=== PATIENT | female | born 1940 | race Caucasian/White ===

== ENCOUNTER 2021-03-28 18:47 | Inpatient (IN) | payer MEDICARE, SELFPAY ==
[2021-03-28] VITALS (13 sets, daily range): BP systolic 133–165; BP diastolic 69–85; PULSE 71–96; RESP 12–18; TEMP 36.1–36.6; O2SAT 96–99; BMI 26.5
--- NOTE | 2021-03-28 18:59 | XRR_ITS ---
PROCEDURE INFORMATION: Exam: XR Chest Exam date and time: 03/28/2021 6:59 PM Age: 80 years old Clinical indication: Sternal or substernal pain; Additional info: Cp TECHNIQUE: Imaging protocol: XR of the chest. Views: 1 view. COMPARISON: No relevant prior studies available. FINDINGS: Lungs: Ground-glass and interstitial opacities in the lung bases. Pleural spaces: Small pleural effusions. No pneumothorax. Heart/Mediastinum: Mild cardiomegaly. Bones/joints: Unremarkable. XR/XR chest 1V portable [id number] IMPRESSION: 1. Findings consistent with mild congestive heart failure. Pneumonia or aspiration in the lung bases is not excluded.
--- NOTE | 2021-03-28 18:59 | ECG_ITS ---
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
--- NOTE | 2021-03-28 19:18 | ED_ITS ---
HPI - Chest Pain General: Chief Complaint: Chest Pain Stated Complaint: CHEST PAIN Time Seen by Provider: 03/28/21 19:16 History of Present Illness: HPI narrative: This patient is a 89-year-old female who presents to the emergency department complaint of chest pain. Patient states she has had chest pain for about 3 weeks. Patient states she has not followed up with primary care physician or in the hospital for evaluation. We will do medical evaluation treat as needed MD complaint: chest pain Quality: aching Relieving factors: nothing Exacerbating factors: nothing Associated symptoms: Deny abdominal pain, dyspnea, fever(s), nausea, palpitations or vomiting Review of Systems General: Reports: 10 or more systems reviewed and unremarkable except in HPI and below Const: Denies: fever(s), chills, body aches or fatigue Eyes: Denies: change in vision or blurry vision ENMT: Denies: throat pain, hoarseness or mouth pain Card: Reports: chest pain; Denies: palpitations, irregular heart rhythm, edema, swelling of feet/ankles or lightheadedness Resp: Denies: dyspnea, productive cough, non-productive cough, wheezing or pain on inspiration GI: Denies: abdominal pain, nausea or vomiting : Denies: flank pain, difficulty voiding, dysuria, urinary frequency, urinary urgency or urinary hesitancy Musc: Denies: neck pain, back pain, extremity pain, extremity swelling, joint pain, joint swelling, joint redness, joint warmth or limited range of motion Skin/Breast: Denies: rash, pruritus, erythema or skin tenderness Neuro: Denies: headache(s), numbness in extremities or weakness in extremities Psych: Denies: anxiety or depression Physical Exam Const: COMMON NORMALS: no acute distress, average body habitus, patient oriented x3, no limitations, healthy appearing, alert and well nourished HENMT: COMMON NORMALS: normocephalic, atraumatic, hearing grossly normal bilaterally, external ears normal, EAC's normal, TM's normal bilaterally, Normal external nose present, Normal nasal mucous membranes and turbinates present, moist oral mucous membranes, oropharynx normal, dentition normal and gingiva normal HEAD & SCALP: normocephalic and atraumatic NOSE: Normal external nose present and Normal nasal mucous membranes and turbinates present EXTERNAL EAR: Yes external ears normal EXTERNAL AUDITORY CANAL: EAC's normal TYMPANIC MEMBRANE: TM's normal bilaterally Neck/C-Spine: COMMON NORMALS: full ROM, no lymphadenopathy, supple, no meningeal signs, no JVD, Thyroid normal and No carotid bruits THYROID: Thyroid normal Chest: COMMONS NORMALS: normal inspection of the chest, normal palpation of entire chest wall, normal inspection of the breasts and normal palpation of the breasts Breast/axilla inspection: Yes normal inspection of the breasts BREAST/AXILLA PALPATION: Yes normal palpation of the breasts Resp: COMMON NORMALS: normal respiratory effort, No retractions, No use of accessory muscles, clear to auscultation bilaterally and percussion normal AUSCULTATION: clear to auscultation bilaterally PERCUSSION: percussion normal Cardio: COMMON NORMALS: no JVD, regular rate, regular rhythm, S1 normal heart sound present, S2 normal heart sound present, No gallops present (Cardio), No clicks present (Cardio), No murmurs present (Cardio), No rub (Cardio) and Peripheral pulses 2+ throughout RATE: regular rate RHYTHM: regular rhythm HEART SOUNDS: S1 normal heart sound present and S2 normal heart sound present PERIPHERAL PULSES: Peripheral pulses 2+ throughout GI: COMMON NORMALS: Normal to inspection, nondistended, normoactive bowel sounds present, Soft to palpation, non-tender, No hepatosplenomegaly present, no masses and no bruits PALPATION: Yes Soft to palpation and Yes No hepatosplenomegaly present Back/Pelvis: COMMON NORMALS: thoracic and lumbar spine normal to inspection, no thoracic nor lumbar tenderness, thoraco-lumbar ROM normal and straight leg raise negative bilaterally Extremity: COMMON NORMALS: normal to inspection, full ROM, capillary refill normal, no joint enlargement, no clubbing, cyanosis or edema, no calf tenderness and no pedal edema Neuro: COMMON NORMALS: patient oriented x3 SENSORIUM/ORIENTATION: Yes alert MENINGEAL SIGNS: Yes no meningeal signs Course Reevaluation(s): Reevaluation #1: I did discuss at length with patient and family about findings and concerns of acute congestive heart failure they are agreed to be admitted to the hospital for further evaluation and diuresing. Time: 20:49 Consultations: Consultation #1: I did discuss at length with cardiology Dr. Pascual. He reviewed EKG. States unremarkable. No signs of acute myocardial infarction Time: 19:41 Consultation #2: I did discuss at length with Dr. Salinas. She is agreeable to admit the hospital for further evaluation diuresing. She will see patient write additional orders Time: 20:49 Vital Signs: Vital signs: Vital Signs Temperature 97.9 F 03/28/21 20:26 Pulse Rate 81 03/28/21 20:26 Respiratory Rate 18 03/28/21 20:26 Blood Pressure 153/82 03/28/21 20:26 Pulse Oximetry 98 03/28/21 20:26 MDM - Chest Pain MDM Narrative: Medical decision making narrative: I did discuss at length with patient and family about findings and concerns of acute congestive heart failure they are agreed to be admitted to the hospital for further evaluation and diuresing. I did discuss at length with cardiology Dr. Pascual. He reviewed EKG. States unremarkable. No signs of acute myocardial infarction I did discuss at length with Dr. Salinas. She is agreeable to admit the hospital for further evaluation diuresing. She will see patient write additional orders Lab Data: Labs: Lab Results 03/28/21 03/28/21 03/28/21 19:34 19:36 19:36 WBC Cancelled Corrected WBC Cancelled RBC Cancelled Hgb Cancelled Hct Cancelled MCV Cancelled MCH Cancelled MCHC Cancelled RDW Cancelled Plt Count Cancelled MPV Cancelled Gran % Cancelled Neut % (Auto) Cancelled Lymph % (Auto) Cancelled [place] % (Auto) Cancelled Eos % (Auto) Cancelled Baso % (Auto) Cancelled Neut # (Auto) Cancelled Lymph # (Auto) Cancelled [place] # (Auto) Cancelled Eos # (Auto) Cancelled Baso # (Auto) Cancelled Absolute Gran (aut o) Cancelled Nucleated RBC % (a uto) Cancelled Nucleated RBCs # Cancelled Sodium 136 mmol/L mmol/L (136-145) Potassium 3.7 mmol/L mmol/L (3.5-5.1) Chloride 97 mmol/L L mmol/ L (98-107) Carbon Dioxide 29 mmol/L mmol/L (22-29) Anion Gap 13.7 (5-19) BUN 14 mg/dL mg/dL (8-23) Creatinine 0.6 mg/dL mg/dL (0.5-0.9) GFR Calculation Not Reportable Glucose 92 mg/dL mg/dL (65-115) Calculated Osmolal ity 282 mOsm/kg L mOs m/kg (285-295) Calcium 8.8 mg/dL mg/dL (8.5-10.5) Total Bilirubin 0.2 mg/dL mg/dL (0.15-1.2) AST 17 U/L U/L (0-32) ALT < 5 U/L U/L (0-33) Alkaline Phosphata se 59 IU/L IU/L (35-105) Troponin T Baselin e NT-Pro-B Natriuret Pep 55082 pg/mL H pg/ mL (0-450) Total Protein 5.7 g/dL L g/dL (6.6-8.7) Albumin 3.5 g/dL g/dL (3.5-5.2) Globulin 2.2 g/dL g/dL (1.3-4.6) 03/28/21 03/28/21 19:36 20:04 WBC 4.1 10^3/uL 10^3/ uL (4.0-10.0) Corrected WBC RBC 3.89 10^6/uL L 10 ^6/uL (4.1-5.3) Hgb 12.5 g/dL g/dL (11.5-15.3) Hct 37.3 % % (37.0-47.0) MCV 95.9 fl fl (81-99) MCH 32.1 pg pg (28.0-34.0) MCHC 33.5 g/dL g/dL (30.0-36.0) RDW 13.7 % % (12.1-15.1) Plt Count 192 10^3/cmm 10^3 /cmm (130-400) MPV 10.3 fL fL (7.4-10.4) Gran % Neut % (Auto) 75.2 % % Lymph % (Auto) 18.8 % % [place] % (Auto) 4.6 % % Eos % (Auto) 1.0 % % Baso % (Auto) 0.2 % % Neut # (Auto) 3.11 10^3/uL 10^3 /uL (1.8-7.7) Lymph # (Auto) 0.8 10^3/uL 10^3/ uL (0.8-4.8) [place] # (Auto) 0.2 10^3/uL 10^3/ uL (0.2-0.9) Eos # (Auto) 0.0 10^3/uL 10^3/ uL (0.0-0.8) Baso # (Auto) 0.0 10^3/uL 10^3/ uL (0.0-0.1) Absolute Gran (aut o) Nucleated RBC % (a uto) 0 % % Nucleated RBCs # 0.0 /100WBC /100W BC Sodium Potassium Chloride Carbon Dioxide Anion Gap BUN Creatinine GFR Calculation Glucose Calculated Osmolal ity Calcium Total Bilirubin AST ALT Alkaline Phosphata se Troponin T Baselin e 69 ng/L H ng/L (0-10) NT-Pro-B Natriuret Pep Total Protein Albumin Globulin Imaging Data^: CXR: Attestation: I personally reviewed and interpreted this imaging study as follows: Radiologist's impression: MPRESSION: 1. Findings consistent with mild congestive heart failure. Pneumonia or aspiration in the lung bases is not excluded. CT Chest: Attestation: I personally reviewed and interpreted this imaging study as follows: Radiologist's impression: FINDINGS: Lungs: Smooth interlobular septal thickening in the lung apices and lingula, consistent with pulmonary edema. Mild ground-glass opacities in the central lungs. Consolidation in the posterior lower lobes is most likely passive atelectasis. 4 mm left lower lobe nodule, image 32. Calcified granuloma in the right lower lobe. Pleural spaces: Moderate right and small left pleural effusions. Heart: Cardiomegaly. Aorta: Arterial calcifications. Mild aneurysmal dilatation of the ascending thoracic aorta measuring 4.0 cm. Lymph nodes: Prominent mediastinal and hilar lymph nodes are most likely reactive. Spleen: Fluid density cyst in the spleen, Hounsfield units less than 20. No follow-up imaging is recommended. Bones/joints: Unremarkable. No acute fracture. Soft tissues: Diffuse body wall edema. CT/CT chest wo con [id number] IMPRESSION: 1. Congestive heart failure pattern with cardiomegaly and mild pulmonary edema. 2. Bilateral pleural effusions with passive atelectasis. 3. 4 mm left pulmonary nodule. For patients at low risk (minimal or absent history of smoking and of other known risk factors), no routine follow-up is indicated. For patients at high risk (history of smoking or of other known risk factors), consider optional CT Chest at 12 months. (Reference: Pollo) EKG Data^: EKG 1: Attestation: I personally reviewed and interpreted this EKG as follows: EKG interpretation date: 03/28/21 EKG interpretation time: 19:25 Prior EKG tracings: not available for review Interpretation: Sinus rhythm with left atrial enlargement. Left axis deviation. Nonspecific EKG changes anterior leads.HR 83 Discharge Plan Discharge Patient Disposition: Admitted As Inpatient Clinical Impression: Acute CHF (congestive heart failure), Chest pain Condition: Stable Coding Level of Care Code ED Tower Observer for Chg Fwd Exam Comprehensive
[2021-03-28 20:01] LABS: Alanine Aminotransferase < 5 U/L (0-33); Albumin Level 3.5 g/dL (3.5-5.2); Alkaline Phosphatase 59 IU/L (35-105); Anion Gap 13.7 (5-19); Aspartate Amino Transferase 17 U/L (0-32); Blood Urea Nitrogen 14 mg/dL (8-23); Calcium 8.8 mg/dL (8.5-10.5); Carbon Dioxide 29 mmol/L (22-29); Chloride 97 mmol/L (98-107); Globulin 2.2 g/dL (1.3-4.6); Glucose 92 mg/dL (65-115); Osmolality Calculated 282 mOsm/kg (285-295); Potassium 3.7 mmol/L (3.5-5.1); Sodium 136 mmol/L (136-145); Total Bilirubin 0.2 mg/dL (0.15-1.2); Total Protein 5.7 g/dL (6.6-8.7)
[2021-03-28 20:02] LABS: Troponin(5th) Baseline 69 ng/L (0-10)
--- NOTE | 2021-03-28 20:07 | CTR_ITS ---
PROCEDURE INFORMATION: Exam: CT Chest Without Contrast; Diagnostic Exam date and time: 03/28/2021 8:07 PM Age: 80 years old Clinical indication: Shortness of breath and other: Weakness; Additional info: Pleural effsusion TECHNIQUE: Imaging protocol: Diagnostic computed tomography of the chest without contrast. Radiation optimization: All CT scans at this facility use at least one of these dose optimization techniques: automated exposure control; mA and/or kV adjustment per patient size (includes targeted exams where dose is matched to clinical indication); or iterative reconstruction. COMPARISON: CR (CHEST, ) 03/28/2021 7:35 PM RADIATION DOSE METRICS: Total DLP (mGy-cm): 476.79 FINDINGS: Lungs: Smooth interlobular septal thickening in the lung apices and lingula, consistent with pulmonary edema. Mild ground-glass opacities in the central lungs. Consolidation in the posterior lower lobes is most likely passive atelectasis. 4 mm left lower lobe nodule, image 32. Calcified granuloma in the right lower lobe. Pleural spaces: Moderate right and small left pleural effusions. Heart: Cardiomegaly. Aorta: Arterial calcifications. Mild aneurysmal dilatation of the ascending thoracic aorta measuring 4.0 cm. Lymph nodes: Prominent mediastinal and hilar lymph nodes are most likely reactive. Spleen: Fluid density cyst in the spleen, Hounsfield units less than 20. No follow-up imaging is recommended. Bones/joints: Unremarkable. No acute fracture. Soft tissues: Diffuse body wall edema. CT/CT chest wo con [id number] IMPRESSION: 1. Congestive heart failure pattern with cardiomegaly and mild pulmonary edema. 2. Bilateral pleural effusions with passive atelectasis. 3. 4 mm left pulmonary nodule. For patients at low risk (minimal or absent history of smoking and of other known risk factors), no routine follow-up is indicated. For patients at high risk (history of smoking or of other known risk factors), consider optional CT Chest at 12 months. (Reference: Pollo) References: Pollo Hargrove et al. Guidelines for Management of Incidental Pulmonary Nodules Detected on CT Images: From the Fleischner Society 2017. Radiology. 2017;284(1):228-243. Radiation Dose CTDIVOL = (mGy): DLP = 476.79 (mGy-cm)
[2021-03-28 20:08] LABS: Basophils % 0.2 %; Hematocrit 37.3 % (37.0-47.0); Hemoglobin 12.5 g/dL (11.5-15.3); Lymphocytes # 0.8 10^3/uL (0.8-4.8); Lymphocytes % 18.8 %; Mean Corpuscular HGB Conc 33.5 g/dL (30.0-36.0); Mean Corpuscular Hemoglobin 32.1 pg (28.0-34.0); Mean Corpuscular Volume 95.9 fl (81-99); Mean Platelet Volume 10.3 fL (7.4-10.4); Monocytes # 0.2 10^3/uL (0.2-0.9); Monocytes % 4.6 %; Neutrophils # 3.11 10^3/uL (1.8-7.7); Neutrophils % 75.2 %; Nucleated Red Blood Cells % 0 %; Platelet Count 192 10^3/cmm (130-400); Red Blood Count 3.89 10^6/uL (4.1-5.3); Red Cell Distribution Width 13.7 % (12.1-15.1); White Blood Count 4.1 10^3/uL (4.0-10.0)
[2021-03-28 20:41] LABS: NT Pro B Type Natriuretic Pept 15189 pg/mL (0-450)
--- NOTE | 2021-03-28 20:59 | ECG_ITS ---
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 Measurements Intervals [place] Rate: 82 P: 69 MN: 149 QRS: -27 QRSD: 98 T: 167 QT: 429 QTc: 503 Interpretive Statements SINUS RHYTHM ANTEROSEPTAL MYOCARDIAL INFARCTION , PROBABLY RECENT [40+ ms Q WAVE IN V1-V4] ACUTE MA T wave changes suggestive of lateral wall ischemia Compared to ECG 03/28/2021 19:25:25 Left-axis deviation no longer present Myocardial infarct finding still present Electronically Signed On 03-30-2021 23:40:49 CDT by Berenice Summers M.D. [id number]
[2021-03-28] MEDS: FUROsemide 10 mg/mL SDV 10mL 80 MG IVP (21:18)
--- NOTE | 2021-03-28 21:24 | PM.HP ---
Providers/Chief Complaint Admitting Physician: Holli Salinas MD Primary Care Provider: Deyanira Worthington MD Chief Complaint: CHEST PAIN History of Present Illness Michaela Sauer is a 80 year old female with past medical history of Parkinson's disease, hypertension presenting to the ER today with chief complaints of chest pain over the last 1-1/2 months. Patient states that the chest pain started suddenly 1-1/2 months ago, located in the center of her chest, radiates occasionally into her left shoulder, not associated with exertion, resolved spontaneously. She has not noticed any apparent exacerbating or relieving factors. Denies any past medical history of CAD, CHF. Presented to the ER today due to complaints of additional shortness of breath. She was requiring 2 L/min supplemental O2. EKG noted sinus rhythm, T wave inversion V2 V4 V5, elevated baseline troponin at 69, mild increases at 2 hours and 6 hours at 72 and 78 respectively. Elevated proBNP at 13,000. CT chest without contrast showed cardiomegaly and mild pulmonary edema, bilateral pleural effusions with passive atelectasis and an incidental 4 mm left pulmonary nodule. Per Dr. Merrill's note, EKG changes were discussed with Dr. Fisher from cardiology, appeared less concerning for acute WA. Review of Systems General: Reports: 10 or more systems reviewed and unremarkable except in HPI and below Const: Denies: fever(s), chills or body aches Eyes: Denies: change in vision, blurry vision or photophobia ENMT: Reports: hoarseness; Denies: throat pain, enlarged tonsils, odynophagia or nasal congestion Card: Reports: chest pain; Denies: palpitations, irregular heart rhythm, edema, swelling of feet/ankles, lightheadedness, pre-syncope, dyspnea on exertion or orthopnea Resp: Reports: dyspnea; Denies: productive cough, non-productive cough, wheezing, stridor, pain on inspiration, change in phlegm color, hemoptysis or chest congestion GI: Denies: abdominal pain, nausea, vomiting, hematemesis, coffee ground emesis, dysphagia, heartburn, diarrhea, constipation, GI cramping, change in stool character, hematochezia or melena : Denies: flank pain, difficulty voiding, dysuria, urinary frequency, urinary urgency, urinary hesitancy or hematuria Musc: Denies: neck pain, back pain, extremity pain, joint swelling, joint warmth or deformity Neuro: Denies: headache(s), numbness in extremities, weakness in extremities, sensory changes, difficulty walking, frequent falls, dizziness, vertigo, behavioral changes, Slurred speech present or seizure-like activity Psych: Denies: anxiety, depression, suicidal ideation or homicidal ideation Endo: Denies: polyuria, polydipsia, tired all the time, cold intolerance or hot flashes Beni/Lymph: Denies: easy bruising or easy bleeding Medications/Allergies Home Medications Medication Instructions Recorded Confirmed Last Taken Type alprazolam 0.25 mg PO QID PRN MDD SEE 03/28/21 03/28/21 03/28/21 History PHARMACY COMMENT amlodipine 5 mg PO DAILY 03/28/21 03/28/21 03/28/21 History carbidopa-levodopa 1 tab PO BEDTIME 03/28/21 03/28/21 03/27/21 History carbidopa-levodopa 1.5 tab PO QID@08,10,12,16 03/28/21 03/29/21 03/28/21 History chlorthalidone 25 mg PO DAILY 03/28/21 03/28/21 03/28/21 History cholecalciferol (vitamin D3) 25 mcg PO DAILY 03/28/21 03/28/21 03/28/21 History [Vitamin D3] clonidine 0.2 mg TRANSDERMAL Q24H 03/28/21 03/28/21 03/28/21 History entacapone 200 mg PO QID 03/28/21 03/28/21 03/28/21 History ferrous gluconate 324 mg PO DAILY 03/28/21 03/28/21 03/28/21 History folic acid 1 mg PO DAILY 03/28/21 03/28/21 03/28/21 History methotrexate sodium 17.5 mg PO Q7D 03/28/21 03/28/21 03/25/21 History omeprazole 20 mg PO DAILY 03/28/21 03/28/21 03/28/21 History potassium chloride 10 meq PO BID 03/28/21 03/28/21 03/28/21 History pramipexole 2 mg PO TID 03/28/21 03/28/21 03/28/21 History primidone 300 mg PO BEDTIME 03/28/21 03/28/21 03/27/21 History Allergies Allergy/AdvReac Type Severity Reaction Status Date / Time No Known Allergies Allergy Verified 03/28/21 19:19 PFSH Acute PFSH: Medical History (Updated 03/29/21 @ 06:24 by Holli Salinas MD) Hypertension Parkinsons disease Vitals/I&O/Wt Last Vital Signs Temp 97.9 F 03/28/21 20:26 Pulse 81 03/28/21 20:26 Resp 18 03/28/21 20:26 BP 153/82 03/28/21 20:26 Pulse Ox 98 03/28/21 20:26 Weight last 48 hrs Weight 65.771 kg Physical Exam Narrative: EXAM NARRATIVE: General: No acute distress, AO x3, coarse resting tremors HEENT: PERRLA, pupils bilaterally equal and reactive Chest: Reduced air entry at bilateral lung bases, scattered crypts to auscultation CVS: S1-S2 regular, no murmurs, no tachycardia, no gallops, no rubs Abdomen: Soft, nontender, no organomegaly, bowel sounds present Neuro: No focal deficits, no facial deformity, AO x3, power 5/5 in all limbs Extremities: Mild bilateral lower extremity edema Data : 03/29/21 01:20 03/29/21 01:20 A&P Assessment and plan (1) Acute CHF (congestive heart failure): Status: Acute Qualifiers: Heart failure type: unspecified Qualified Code(s): I50.9 - Heart failure, unspecified (2) Chest pain: Status: Acute Qualifiers: Chest pain type: unspecified Qualified Code(s): R07.9 - Chest pain, unspecified (3) Elevated troponin: Status: Acute Additional A&P Information Patient presenting today with chest pain of 1-1/2 months duration and worsening dyspnea over the same timeframe. Physical exam with mild bilateral LE edema, crackles on auscultation, CT chest with bilateral pleural effusion and signs of pulmonary edema. Differentials include new diagnosis of congestive heart failure, cannot exclude recent WA as a precipitating cause given also chest pain over the same timeframe. He received Lasix 80 mg IV in the ER. Start Lasix 40 mg IV daily, monitor JOSEPH closely, measure daily weight. Closely monitor renal function. Echocardiogram to estimate EF, any regional wall motion abnormalities. D-dimer to screen for possibility of PE, if elevated will likely need CTA chest Full code DVT ppx: lovenox Attestations Medical Necessity Statement*: anticipate >2midnight admission for evaluation and management of new CHF Coding Level of Care Code Acute Uniform Patrol Police Officer for g Fwd Diagnoses Acute CHF (congestive heart failure) I50.9 Heart failure type: unspecified Chest pain R07.9 Chest pain type: unspecified Elevated troponin R77.8
[2021-03-28 21:53] LABS: Troponin 5 2HR 72.08 ng/L (0-10); Troponin 5 2HR Delta 3.08 ABS# (0-10)
[2021-03-28 22:08] LABS: D Dimer 19.58 ug/mIFEU (0-0.59)
--- NOTE | 2021-03-28 22:13 | PC.NURSE ---
Patient up to bedside commode with assist x2 and back to bed without incident.
[2021-03-28 23:11] LABS: Add Urine Microscopic? YES; Bilirubin Urine Neg (Negative); Blood Urine Neg (Negative); Glucose Urine UA Norm (Normal); Ketones Urine Negative (Negative); Leukocyte Esterase Urine 2+ (Negative); Nitrate Urine Positive (Negative); Protein Urine Neg (Negative); Urine Appearance Clear (CLEAR); Urine Color Yellow (Yellow); Urobilinogen Urine Norm (Negative); pH Urine 6.5 (5-7)
[2021-03-28 23:12] LABS: Add Urine Culture? Yes; Bacteria Urine TRACE /hpf; RBC Urine 0-4 /hpf (0-2); Squamous Epithelial Cell Urine 0-4 /hpf (0-5); WBC Urine 40-55 /hpf (0-5)
[2021-03-29] VITALS (93 sets, daily range): BP systolic 123–147; BP diastolic 73–79; PULSE 71–89; RESP 0–83; TEMP 36.6–36.8; O2SAT 91–98; BMI 18.1
--- NOTE | 2021-03-29 00:23 | USCV_ITS ---
Michaela Sauer Age: 80 Gender: F : 1940 Exam Date: 03/29/2021 11:07 Ordering Phys: Holli Salinas MD Technologist: Sylvia Trujillo Exam Location: [facility] – [place] Indication: decompensated CHF BP: 146 / 77 HR: 74 Rhythm: Sinus Technical Quality: Good MEASUREMENTS (Male / Female) Normal Values 2D ECHO LV Diastolic Diameter PLAX 4.8 cm 4.2 - 5.9 / 3.9 - 5.3 cm LV Systolic Diameter PLAX 3.4 cm IVS Diastolic Thickness 1.2 cm 0.6 - 1.0 / 0.6 - 0.9 cm IVS Systolic Thickness 1.2 cm LVPW Diastolic Thickness 1.0 cm 0.6 - 1.0 / 0.6 - 0.9 cm LVPW Systolic Thickness 1.9 cm LVOT Diameter 2.0 cm LV Ejection Fraction 2D Teich 56.3 % LV Ejection Fraction MOD 2C 41.1 % LV Ejection Fraction 2C AL 42.3 % LA Diameter 3.1 cm LA Width 4.3 cm LA Height 5.4 cm RA Width 3.0 cm RA Height 3.6 cm Aorta at Sinotubular Diameter 2.9 cm DOPPLER AV Peak Velocity 165.0 cm/s LVOT Peak Velocity 95.0 cm/s AV Area Cont Eq vti 2.0 cm squared AV Area Cont Eq pk 1.7 cm squared MV Peak Velocity 109.0 cm/s MV Area PHT 4.9 cm squared Mitral E to A Ratio 0.7 MV E' Velocity 34.5 cm/s Mitral E to MV E' Ratio 16.8 Mitral E to LV E' Lateral Ratio 21.1 Mitral E to LV E' Septal Ratio 14.2 TR Peak Velocity 196.0 cm/s TR Peak Gradient 15.4 mmHg Right Atrial Pressure 3.0 mmHg Pulmonary Artery Systolic Pressu 18.4 mmHg PV Peak Velocity 80.0 cm/s RV Acceleration Time 0.1 s RV Ejection Time 0.3 s RV AcT/ET 0.3 FINDINGS Left Ventricle Severe diffuse hypokinesia of the low LV apex. LV ejection fraction around 35 to 40%.mild left ventricular hypertrophy. Right Ventricle Possibly normal RV size and ejection fraction Right Atrium The right atrium is normal in size. Left Atrium Mildly increased left atrial size. Interatrial septum bulging to the right Mitral Valve Thickened mitral valve. Mild mitral annular calcification. Moderate mitral valve regurgitation. Aortic Valve Thickened aortic valve. Mild aortic valve regurgitation. Tricuspid Valve Trace tricuspid valve regurgitation. Pulmonic Valve Structurally normal pulmonic valve without significant stenosis. There is no pulmonic regurgitation. Pericardium At least moderate left-sided pleural effusion.trivial pericardial effusion. Aorta Normal ascending aorta dimension. CONCLUSIONS Severe diffuse hypokinesia of the low LV apex. LV ejection fraction around 35 to 40% (visual). Mild left ventricular hypertrophy. Mildly increased left atrial size. Interatrial septum bulging to the right. Thickened mitral valve. Mild mitral annular calcification. Moderate mitral valve regurgitation. Thickened aortic valve. Mild aortic valve regurgitation. Trace tricuspid valve regurgitation. At least moderate left-sided pleural effusion. Trivial pericardial effusion. There are no intracardiac masses. No previous study is available for comparison. Dr Berenice Summers MD FAC (Electronically Signed) Final Date: 30 March 2021 00:39 S
--- NOTE | 2021-03-29 00:59 | ECG_ITS ---
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 Measurements Intervals [place] Rate: 77 P: 59 MA: 172 QRS: -24 QRSD: 97 T: 173 QT: 415 QTc: 470 Interpretive Statements SINUS RHYTHM ANTEROSEPTAL MYOCARDIAL INFARCTION , PROBABLY RECENT [40+ ms Q WAVE IN V1-V4] ACUTE WY T wave changes suggestive of anterolateral wall ischemia Compared to ECG 03/28/2021 23:43:02 No significant changes Electronically Signed On 03-30-2021 23:41:36 CDT by Berenice Summers M.D. [id number]
[2021-03-29 01:25] LABS: Basophils % 0.5 %; Eosinophils % 0.7 %; Hematocrit 36.9 % (37.0-47.0); Hemoglobin 12.8 g/dL (11.5-15.3); Lymphocytes # 0.7 10^3/uL (0.8-4.8); Lymphocytes % 15.6 %; Mean Corpuscular HGB Conc 34.7 g/dL (30.0-36.0); Mean Corpuscular Hemoglobin 32.2 pg (28.0-34.0); Mean Corpuscular Volume 92.9 fl (81-99); Mean Platelet Volume 9.9 fL (7.4-10.4); Monocytes # 0.3 10^3/uL (0.2-0.9); Monocytes % 6.8 %; Neutrophils # 3.39 10^3/uL (1.8-7.7); Neutrophils % 76.4 %; Nucleated Red Blood Cells % 0 %; Platelet Count 197 10^3/cmm (130-400); Red Blood Count 3.97 10^6/uL (4.1-5.3); Red Cell Distribution Width 13.5 % (12.1-15.1); White Blood Count 4.4 10^3/uL (4.0-10.0)
[2021-03-29 01:45] LABS: Troponin 5 6HR 78.66 ng/L (0-10); Troponin 5 6HR Delta 9.66 ng/L (0-12)
[2021-03-29 01:59] LABS: Alanine Aminotransferase 8 U/L (0-33); Albumin Level 3.3 g/dL (3.5-5.2); Alkaline Phosphatase 56 IU/L (35-105); Anion Gap 9.2 (5-19); Aspartate Amino Transferase 16 U/L (0-32); Blood Urea Nitrogen 14 mg/dL (8-23); Calcium 8.5 mg/dL (8.5-10.5); Carbon Dioxide 32 mmol/L (22-29); Chloride 97 mmol/L (98-107); Glucose 98 mg/dL (65-115); Osmolality Calculated 280 mOsm/kg (285-295); Potassium 3.2 mmol/L (3.5-5.1); Sodium 135 mmol/L (136-145); Thyroid Stimulating Hormone 4.17 uIU/mL (0.27-4.20); Total Bilirubin 0.2 mg/dL (0.15-1.2); Total Protein 5.3 g/dL (6.6-8.7)
--- NOTE | 2021-03-29 06:28 | CT_ITS ---
WS: [id number] CTA OF THE CHEST WITH PULMONARY EMBOLISM PROTOCOL TECHNIQUE: High-resolution contrast enhanced CTA of the chest with coronal and sagittal reformatted i aracelis with pulmonary embolism protocol. MIP images are also reviewed. CLINICAL INFORMATION: evaluate for PE COMPARISON: None. DLP: 494.[address] scans at [facility] use at least one of these dose optimization techniques: automated e xposure control; mA and/or kV adjustment per patient size (includes targeted exams where dose is matc hed to clinical indication); or iterative reconstruction. FINDINGS: Proximal main pulmonary arteries are normal. Normal segmental and subsegmental pulmonary arteries. No evidence of pulmonary embolus. Small bilateral pleural effusions compressive atelectasis in the lung bases unchanged since yesterday. Stable slightly ectatic ascending thoracic aorta. Reactive mediastinal lymph nodes. Interstitial edema has improved compared to yesterday. Cardiomegaly . Aortic calcification. Small esophageal hiatal hernia. Small low-attenuation lesion in the spleen li yonatan cyst or hemangioma is unchanged. Hypertrophic changes thoracic spine. CT/CT angio chest PE protcl [id number] IMPRESSION: 1. No evidence of pulmonary embolus. 2. Cardiomegaly. Improved interstitial edema. 3. Small bilateral pleural effusions with compressive atelectasis in the lung bases is unchanged from yesterday. 4. No other significant changes.
[2021-03-29] MEDS: enoxaparin 60 mg/0.6 mL Syringe SUBCUT (08:04)
[2021-03-29] MEDS: pramipexole 0.25 mg Tablet 2 MG PO ×3 (08:05→21:41)
[2021-03-29] MEDS: FUROsemide 10 mg/mL SDV 4mL 40 MG IVP (08:05)
[2021-03-29] MEDS: carbidopa-levodopa 25-100mg Tablet 1.5 EACH PO ×4 (08:06→17:32)
[2021-03-29] MEDS: amlodipine 5 mg Tablet PO (08:06)
[2021-03-29] MEDS: potassium chloride ER 20 mEq Tablet 40 MEQ PO (08:06)
[2021-03-29] MEDS: pantoprazole DR 40 mg Tablet PO ×2 (08:06→21:42)
[2021-03-29] MEDS: iohexol 350 mg/mL 100 mL Btl IV (08:54)
--- NOTE | 2021-03-29 10:34 | PC.PHAR ---
Med list amended. Spoke with pts daughter, Yakelin- States she is taking Carbidopa-Levodopa 25-100mg 1 tablet QID (Prescribed as 1.5 tablets QID) Daughter states her doctor is aware she is taking less than prescribed. Carbidop-Levo originally entered as 1.5 tablets TID, changed to 1.5 tablets QID - pt is taking 1 tablet QID. Pt is using Clonidine Trans Patch 0.2mg/24hr Q7D (last filled d007/30/20 x 30 days) Daughter states pt has an over abundance of patches and still has plenty to use. Patch originally entered as 0.2mg/24hr Q24H Medication list updated and verified with Yakelin Sanchez - Daughter & [facility] [place]
--- NOTE | 2021-03-29 11:13 | USCV_ITS ---
Michaela Sauer Age: 80 Gender: F : 1940 Exam Date: 03/29/2021 11:31 Ordering Phys: Charlene Russo MD Technologist: Sylvia Trujillo Exam Location: [facility] [place] Indication: high D Dimer, bruise on left toe PROCEDURES: Bilaterally, the common femoral, superficial femoral, profunda femoral, popliteal, posterior tibial, greater saphenous veins, and the peroneal trunk were identified and interrogated in the standard fashion. FINDINGS: No DVT or superficial thrombus seen in right or left leg. The veins were found to be easily compressible with spontaneous blood flow. Non pulsatile flow pattern. CONCLUSIONS No evidence of DVT in the above-mentioned identifiable veins. Dr Berenice Summers MD [facility] (Electronically Signed) Final Date: 30 March 2021 14:43 S
[2021-03-29 12:22] LABS: Uric Acid 4.2 mg/dL (2.4-5.7)
--- NOTE | 2021-03-29 12:33 | XRR_ITS ---
PROCEDURE INFORMATION: Exam: XR Left Foot Exam date and time: 03/29/2021 12:33 PM Age: 80 years old Clinical indication: Pain; Toes; Left; Patient HX: History--bruising to great toe, PT had dementia unable to give history; Additional info: Bruised left great toe TECHNIQUE: Imaging protocol: XR Left foot. Views: 1 or 2 views. COMPARISON: CR Tibia and Fibula LEFT [id number] 08/08/2016 4:44 PM FINDINGS: Bones/joints: The hindfoot-midfoot and midfoot-forefoot articulations are normal. The metatarsals and the phalanges without an acute process. Subtalar joint and the tibiotalar joint appears normal. Moderate degenerative changes at the first metatarsal phalangeal joint. Severe hallux valgus deformity. Hallux valgus angle of approximately 43 degrees. Prior trauma distal aspect 5th metatarsal. Spur formation at the insertion of the Achilles' tendon . Mild degenerative changes talonavicular joint. Soft tissues: Normal. XR/XR foot LT 2V [id number] IMPRESSION: 1. Moderate degenerative changes at the first metatarsal phalangeal joint. Severe hallux valgus deformity. 2. Spur formation at the insertion of the Achilles' tendon .
--- NOTE | 2021-03-29 12:34 | P.PN_ITS ---
Subjective Subjective: Interval history: Patient was seen and examined this morning, CTA without any PE requested x-ray of left foot, noticed bruises around left great toe Patient is not endorsing active chest pain stating she gets chest discomfort which she is describing as ball jumping around her subcostal region whenever she lays flat at nighttime, no aggravating or relieving factors She is not describing her chest pain as reproducible, pressure-like sensation, no nausea or vomiting She does have a lot of care at home does not want to go to any care home, she is bedbound and uses wheelchair for ambulation, bedbound because of bad rheumatoid arthritis arthropathy Vitals/I&O/Wt Last Vital Signs Temp 97.4 F L 03/28/21 22:54 Pulse 79 03/29/21 11:57 Resp 3 L 03/29/21 07:05 BP 147/73 03/29/21 07:05 Pulse Ox 92 03/29/21 11:57 Weight last 48 hrs Weight 49.442 kg Weight 65.771 kg Physical Exam Narrative: EXAM NARRATIVE: Patient was laying supine Able to move all of her extremities No active neurological deficit Appears stated age mild active signs of CHF exacerbation , trace edema of lower extremities noted Bilateral breath sound with mild crackles at the bases Abdomen soft Bruises noted around left great toe Nontender joint Does not look infected no active signs of gout Patient does respond to my questions and answers appropriately As per the nursing staff no sacral ulcers Data : 03/29/21 01:20 03/29/21 01:20 A&P Assessment and plan (1) Hypertension: Status: Acute (2) Parkinsons disease: Status: Acute (3) Acute CHF (congestive heart failure): Status: Acute Qualifiers: Heart failure type: unspecified Qualified Code(s): I50.9 - Heart failure, unspecified (4) Atypical chest pain: Status: Acute (5) NSTEMI (non-ST elevated myocardial infarction): Status: Acute Additional A&P Information New onset CHF Pending echo Clinically mild signs of CHF overload CTA chest rule out PE Shows improvement of primary edema Continue Lasix 40 IV watch for contraction alkalosis with bicarb Awaiting echo High D-dimer, rule out DVT awaiting venous Dopplers NSTEMI: Abnormal troponin most likely secondary to underlying new onset CHF does not have, active chest pain, we will keep her on therapeutic dose of Lovenox with aspirin and statin for now If echo shows wall motion abnormalities will consult cardiology History of Parkinson's continue pramipexole and primidone History of rheumatoid arthritis I would hold methotrexate for now Left great toe bruise without active swelling or cellulitis, check uric acid, requested x-ray Full code Cardiac diet DVT prophylaxis currently on therapeutic regimen Attestations Medical Necessity Statement*: Anticipating discharge tomorrow if she stays clinically stable Time Spent in Patient Care: 16 - 35 minutes Coding Level of Care Code Acute Salvage Machine Operator for Shira Fwd Diagnoses Hypertension I10 Parkinsons disease G20 Acute CHF (congestive heart failure) I50.9 Heart failure type: unspecified Atypical chest pain R07.89 NSTEMI (non-ST elevated myocardial infarction) I21.4
[2021-03-29 15:25] LABS: Coronavirus Test Green County Not Detected
--- NOTE | 2021-03-29 19:34 | PC.NURSE ---
Shift Note Frequent safety and comfort rounds continue. Orders and/or nursing care completed as indicated. Patient monitored for response to intervention and treatment(s). Pt vacillates btwn completely confused..trying to crawl out of bed...to sitting up in bed,conversing appropriatly with staff.impossible to measure i/o accurately,due to pt is incontinent. Will continue to monitor.
[2021-03-29] MEDS: enoxaparin 60 mg/0.6 mL Syringe 50 MG SUBCUT (21:40)
[2021-03-29] MEDS: carbidopa-levodopa ER 50-200mg Tablet 1 EACH PO (21:41)
[2021-03-29] MEDS: primidone 50 mg Tablet 300 MG PO (21:41)
[2021-03-29] MEDS: atorvastatin 40 mg Tablet PO (21:42)
[2021-03-30] VITALS (57 sets, daily range): BP systolic 108–150; BP diastolic 56–85; PULSE 65–778; RESP 8–25; TEMP 36.4–37.6; O2SAT 92–97
--- NOTE | 2021-03-30 02:33 | PC.NURSE ---
Patient sleeping most of night. Fell asleep after evening medications. Frequent checks for incontinence. Will continue to monitor.
[2021-03-30 05:25] LABS: Anion Gap 10.6 (5-19); Blood Urea Nitrogen 16 mg/dL (8-23); Calcium 8.5 mg/dL (8.5-10.5); Carbon Dioxide 33 mmol/L (22-29); Chloride 96 mmol/L (98-107); Glucose 114 mg/dL (65-115); Osmolality Calculated 284 mOsm/kg (285-295); Potassium 3.6 mmol/L (3.5-5.1); Sodium 136 mmol/L (136-145)
[2021-03-30] MEDS: levoFLOXacin 750 mg Tablet PO (05:44)
[2021-03-30] MEDS: aspirin 81 mg EC Tablet PO (10:11)
[2021-03-30] MEDS: pramipexole 0.25 mg Tablet 2 MG PO ×3 (10:11→21:11)
[2021-03-30] MEDS: FUROsemide 10 mg/mL SDV 4mL 40 MG IVP (10:12)
[2021-03-30] MEDS: carbidopa-levodopa 25-100mg Tablet 1.5 EACH PO ×4 (10:12→18:19)
[2021-03-30] MEDS: enoxaparin 60 mg/0.6 mL Syringe 50 MG SUBCUT ×2 (10:13→19:48)
[2021-03-30] MEDS: metoprolol succinate ER (24 HR) 25 mg Tablet 12.5 MG PO (10:13)
[2021-03-30] MEDS: amlodipine 5 mg Tablet PO (10:13)
--- NOTE | 2021-03-30 11:31 | PM.PN ---
Subjective Subjective: Interval history: Overnight no events Patient looks euvolemic Contraction alkalosis EF 35 to 40% We will consult cardiology Dr. Summers Patient is not complaining of active chest pain She wanted to go home and agreed to stay to get cardiology evaluation Foot x-ray without any fractures showing arthritis Reduce Lasix dose to 20 mg daily discontinue IV regimen Continue ACS protocol with aspirin, atorvastatin, Lovenox, metoprolol succinate Vitals/I&O/Wt Last Vital Signs Temp 98.0 F 03/30/21 11:28 Pulse 778 H 03/30/21 11:28 Resp 19 H 03/30/21 11:28 BP 150/85 03/30/21 11:28 Pulse Ox 92 03/30/21 11:28 03/29/21 03/30/21 03/30/21 22:59 06:59 14:59 Intake Total 240 / 720 240 / 960 60 / 60 Output Total 250 / 250 250 / 500 Balance -10 / 470 -10 / 460 60 / 60 Weight last 48 hrs Weight 49.442 kg Weight 49.442 kg Weight 65.771 kg Physical Exam Narrative: EXAM NARRATIVE: Patient laying comfortably in her bed Not complaining of chest pain No neurological deficit She does have crusting of right eye Feet without swelling cellulitis or excessive swelling Clinically does look dry No audible stridor or wheezing Saturating well on room air Data : 03/29/21 01:20 03/30/21 04:29 Micro: Microbiology 03/28/21 22:47 Urine Culture - Preliminary Urine,Clean Catch A&P Assessment and plan (1) NSTEMI (non-ST elevated myocardial infarction): Status: Acute (2) Hypertension: Status: Acute (3) Parkinsons disease: Status: Acute (4) Acute CHF (congestive heart failure): Status: Acute Qualifiers: Heart failure type: unspecified Qualified Code(s): I50.9 - Heart failure, unspecified Additional A&P Information New onset CHF Reduce ejection fraction heart failure Ischemic cardiomyopathy needs to be ruled out, will consult cardiology Continue ACS protocol No active chest pain Continue Parkinson's medications Did notice contraction alkalosis IV diuretics regimen deescalated to p.o. Lasix 20 mg daily Patient clinically does look dry and able to lay supine no orthopnea or PND Patient is full code Cardiac diet DVT prophylaxis Lovenox therapeutic regimen Patient is leading a sedentary lifestyle, need assistance for ambulation, her daughters are taking care of her, she is using wheelchair at home, debilitating arthritis Attestations Medical Necessity Statement*: Cardiology consult today Time Spent in Patient Care: 16 - 35 minutes Coding Level of Care Code Acute Cycle Counter for g Fwd Diagnoses NSTEMI (non-ST elevated myocardial infarction) I21.4 Hypertension I10 Parkinsons disease G20 Acute CHF (congestive heart failure) I50.9 Heart failure type: unspecified
[2021-03-30] MEDS: potassium chloride ER 20 mEq Tablet 40 MEQ PO (12:41)
--- NOTE | 2021-03-30 17:34 | P.CONIM_ITS ---
Providers/Reason For Consult Consulting Physician/Specialty*: MELLISA Summers MD/cardiology Reason for Consult*: Patient with the chest pain and shortness of breath. Found to have features of congestive heart failure Attending Physician: Charlene Russo MD Primary Care Provider: Deyanira Worthington MD History of Present Illness History of Present Illness Michaela Sauer is a 80 year old female is admitted to hospital through the emergency room, where she presented with complaints of chest pain and shortness of breath. She was found to be in congestive heart failure. She also was found to have elevated troponin T. Cardiology consult is requested for further cardiac evaluation recommendations. The patient is demented and is known to have dementia. Information is mostly from the family members, her and daughter. This patient apparently is bedridden because of severe arthritis with a flexion deformity of both lower extremities. She been complaining of chest pain and shortness of breath off and on for the last few weeks. She was seen by the primary care provider yesterday and had an EKG. The EKG was found to be abnormal. She was advised to come to the emergency room for further evaluation and management. She describes the pain in the left upper part of the chest. Moderate in intensity. According to family, her shortness of breath has been intermittent. Denies any fever or chills. No cough. He has no previous history for coronary disease, myocardial infarction or congestive heart failure. She is known to have severe degenerative joint disease, dementia,? Parkinson's disease. History of hypertension. No history for peripheral artery disease. No history for any liver disease or bleeding disorders. Review of Systems Narrative: CONSTITUTIONAL: No fever or chills. EYES: No blurring of vision or other visual disturbances lately. ENT: No hoarseness of voice, auditory disturbances or sore throat. CARDIOVASCULAR: As mentioned above. RESPIRATORY: Shortness of breath as mentioned above GASTROINTESTINAL: No hematemesis or melena. GENITOURINARY: No dysuria or hematuria. INTEGUMENTARY: No skin rashes or history of skin cancer. NEURO: History of dementia, Parkinson disease PSYCHIATRIC: No history of psychosis or major depression. HEMATOLOGIC: No bleeding disorders or significant anemia. ENDOCRINE: No history of polyuria or polydipsia. MUSCULOSKELETAL: Flexion deformity of both lower extremities. ALLERGY/IMMUNOLOGY: As mentioned above. Meds/Allergies Home Medications and Allergies Home Medications Medication Instructions Recorded Confirmed Last Taken Type alprazolam 0.25 mg PO QID PRN MDD SEE 03/28/21 03/28/21 03/28/21 History PHARMACY COMMENT amlodipine 5 mg PO DAILY 03/28/21 03/28/21 03/28/21 History carbidopa-levodopa 1 tab PO BEDTIME 03/28/21 03/28/21 03/27/21 History carbidopa-levodopa 1.5 tab PO QID@08,10,12,16 MDD see 03/28/21 03/29/21 03/28/21 History pharmacy comment chlorthalidone 25 mg PO DAILY 03/28/21 03/28/21 03/28/21 History cholecalciferol (vitamin D3) 25 mcg PO DAILY 03/28/21 03/28/21 03/28/21 History [Vitamin D3] clonidine 0.2 mg TRANSDERMAL Q7D MDD see 03/28/21 03/29/21 03/26/21 History pharmacy comment last changed 03/26 entacapone 200 mg PO QID 03/28/21 03/28/21 03/28/21 History ferrous gluconate 324 mg PO DAILY 03/28/21 03/28/21 03/28/21 History folic acid 1 mg PO DAILY 03/28/21 03/28/21 03/28/21 History methotrexate sodium 17.5 mg PO Q7D 03/28/21 03/28/21 03/25/21 History omeprazole 20 mg PO DAILY 03/28/21 03/28/21 03/28/21 History pramipexole 2 mg PO TID 03/28/21 03/28/21 03/28/21 History primidone 300 mg PO BEDTIME 03/28/21 03/28/21 03/27/21 History aspirin 81 mg PO DAILY #30 tab 03/31/21 Unknown Rx atorvastatin 40 mg PO BEDTIME 30 Days #30 tab 03/31/21 Unknown Rx clopidogrel 75 mg PO DAILY 30 Days #30 tab 03/31/21 Unknown Rx furosemide [Lasix] 10 mg PO Q48H PRN #30 tab 03/31/21 Unknown Rx lisinopril 2.5 mg PO DAILY #30 tab 03/31/21 Unknown Rx metoprolol succinate 12.5 mg PO DAILY 30 Days #30 tab 03/31/21 Unknown Rx nitroglycerin [Nitrostat] 0.4 mg SUBLINGUAL Q5M #7 tab 03/31/21 Unknown Rx potassium chloride 10 meq PO Q48H 30 Days #0 tab 03/31/21 03/28/21 03/28/21 Rx spironolactone 25 mg PO DAILY 30 Days #30 tab 03/31/21 Unknown Rx Allergies Allergy/AdvReac Type Severity Reaction Status Date / Time No Known Allergies Allergy Verified 03/28/21 19:19 Current Medications Current Medications Generic Name Dose Route Start Last Admin Trade Name Hernandez PRN Reason Stop Dose Admin Amlodipine Besylate 5 mg 03/29/21 09:00 03/30/21 10:13 Amlodipine 5 Mg Tablet PO 5 mg DAILY PAYAL Administration Aspirin 81 mg 03/30/21 09:00 03/30/21 10:11 Aspirin 81 Mg Ec Tablet PO 81 mg DAILY PAYAL Administration Atorvastatin Calcium 40 mg 03/29/21 21:00 03/29/21 21:42 Atorvastatin 40 Mg Tablet PO 40 mg BEDTIME PAYAL Administration Carbidopa/Levodopa 1 each 03/29/21 21:00 03/29/21 21:41 Carbidopa-Levodopa Er 50-200mg Tablet PO 1 each BEDTIME PAYAL Administration Carbidopa/Levodopa 1.5 each 03/29/21 08:00 03/30/21 15:53 Carbidopa-Levodopa 25-100mg Tablet PO 1.5 each QID@08,10,12,16 PAYAL Administration Enoxaparin Sodium 50 mg 03/29/21 20:00 03/30/21 10:13 Enoxaparin 60 Mg/0.6 Ml Syringe SUBCUT 50 mg Q12H PAYAL Administration Levofloxacin 750 mg 03/30/21 06:00 03/30/21 05:44 Levofloxacin 750 Mg Tablet PO 750 mg DAILY@0600 PAYAL Administration Protocol Metoprolol Succinate 12.5 mg 03/30/21 09:00 03/30/21 10:13 Metoprolol Succinate Er (24 Hr) 25 Mg Tablet PO 12.5 mg DAILY PAYAL Administration Pantoprazole Sodium 40 mg 03/29/21 21:00 03/29/21 21:[address] 40 Mg Tablet PO 40 mg BEDTIME PAYAL Administration Pramipexole Dihydrochloride 2 mg 03/29/21 09:00 03/30/21 15:54 Pramipexole 0.25 Mg Tablet PO 2 mg TID PAYAL Administration Primidone 300 mg 03/29/21 21:00 03/29/21 21:41 Primidone 50 Mg Tablet PO 300 mg BEDTIME PAYAL Administration PFSH Acute PFSH: Medical History Hypertension Parkinsons disease Vitals/I&O/Wt Last Vital Signs Temp 98.0 F 03/30/21 16:26 Pulse 68 03/30/21 16:26 Resp 17 03/30/21 16:26 BP 108/57 03/30/21 16:26 Pulse Ox 95 03/30/21 16:26 03/30/21 03/30/21 03/30/21 06:59 14:59 22:59 Intake Total 240 / 960 60 / 60 Output Total 250 / 500 Balance -10 / 460 60 / 60 Weight last 48 hrs Weight 109 lb Weight 109 lb Weight 145 lb Physical Exam Narrative: EXAM NARRATIVE: GENERAL: The patient is alert but somewhat agitated. Not in any acute distress. Patient dialyzes in the bed in a position. She has some flexion contractures of both lower extremity muscles. HEENT: No significant pallor, icterus or lymphadenopathy. The pupils are symmetrical. Oral cavity: There are no mucous membrane lesions. Funduscopic examination: The fundus was not examined NECK: Trachea appears to be central. No masses noted. No JVD or thyromegaly appreciated. No carotid bruit. Prominent neck veins. RESPIRATORY: Chest is symmetrical. No intercostals muscle retraction or any accessory muscle activation. There is no chest wall tenderness. Breath sounds are diminished bilaterally more so on the left side, at the base. BREASTS: Deferred. HEART: The PMI could not be palpated. No other palpable precordial events. First and second heart sounds are normal. Short systolic murmur at the left sternal border and also in the mitral area. No diastolic murmurs. No pericardial rub. ABDOMEN: No vessel pulsations or distention. No tenderness. No organomegaly appreciated. No abdominal bruit. Bowel sounds are normally heard. : Deferred. RECTAL: Deferred. LYMPHATIC: No lymphadenopathy noted in the neck or groin. EXTREMITIES: Trace edema with no cyanosis. Peripheral pulses are palpable fairly good volume and amplitude. MUSCULOSKELETAL: Patient is bedridden. Good peripheral pulses. No acute joint deformities or swelling. SKIN: There are no significant scars or skin rash noted. NEUROPSYCHIATRIC: The patient is alert. No focal motor deficits. Has Some intentional tremor. Seems very confused about dates and times. Data Labs: Other Labs: Laboratory Last Values WBC 4.4 10^3/uL (4.0- 10.0) 03/29/21 01:20 Corrected WBC Cancelled 03/28/21 19:36 RBC 3.97 10^6/uL (4.1 -5.3) L 03/29/21 01:20 Hgb 12.8 g/dL (11.5-1 5.3) 03/29/21 01:20 Hct 36.9 % (37.0-47.0 ) L 03/29/21 01:20 MCV 92.9 fl (81-99) 03/29/21 01:20 MCH 32.2 pg (28.0-34. 0) 03/29/21 01:20 MCHC 34.7 g/dL (30.0-3 6.0) 03/29/21 01:20 RDW 13.5 % (12.1-15.1 ) 03/29/21 01:20 Plt Count 197 10^3/cmm (130 -400) 03/29/21 01:20 MPV 9.9 fL (7.4-10.4) 03/29/21 01:20 Gran % Cancelled 03/28/21 19:36 Neut % (Auto) 76.4 % 03/29/21 01:20 Lymph % (Auto) 15.6 % 03/29/21 01:20 Casey % (Auto) 6.8 % 03/29/21 01:20 Eos % (Auto) 0.7 % 03/29/21 01:20 Baso % (Auto) 0.5 % 03/29/21 01:20 Neut # (Auto) 3.39 10^3/uL (1.8 -7.7) 03/29/21 01:20 Lymph # (Auto) 0.7 10^3/uL (0.8- 4.8) L 03/29/21 01:20 Casey # (Auto) 0.3 10^3/uL (0.2- 0.9) 03/29/21 01:20 Eos # (Auto) 0.0 10^3/uL (0.0- 0.8) 03/29/21 01:20 Baso # (Auto) 0.0 10^3/uL (0.0- 0.1) 03/29/21 01:20 Absolute Gran (aut o) Cancelled 03/28/21 19:36 Nucleated RBC % (a uto) 0 % 03/29/21 01:20 Nucleated RBCs # 0.0 /100WBC 03/29/21 01:20 D-Dimer 19.58 ug/mIFEU (0 -0.59) H 03/28/21 19:36 Sodium 136 mmol/L (136-1 45) 03/30/21 04:29 Potassium 3.6 mmol/L (3.5-5 .1) 03/30/21 04:29 Chloride 96 mmol/L (98-107 ) L 03/30/21 04:29 Carbon Dioxide 33 mmol/L (22-29) H 03/30/21 04:29 Anion Gap 10.6 (5-19) 03/30/21 04:29 BUN 16 mg/dL (8-23) 03/30/21 04:29 Creatinine 0.7 mg/dL (0.5-0. 9) 03/30/21 04:29 GFR Calculation Not Reportable 03/30/21 04:29 Glucose 114 mg/dL (65-115 ) 03/30/21 04:29 Calculated Osmolal ity 284 mOsm/kg (285- 295) L 03/30/21 04:29 Uric Acid 4.2 mg/dL (2.4-5. 7) 03/29/21 01:20 Calcium 8.5 mg/dL (8.5-10 .5) 03/30/21 04:29 Total Bilirubin 0.2 mg/dL (0.15-1 .2) 03/29/21 01:20 AST 16 U/L (0-32) 03/29/21 01:20 ALT 8 U/L (0-33) 03/29/21 01:20 Alkaline Phosphata se 56 IU/L (35-105) 03/29/21 01:20 Troponin T Baselin e 69 ng/L (0-10) H 03/28/21 19:36 Troponin T 120 Min [place] 72.08 ng/L (0-10) H 03/28/21 21:19 Delta Troponin T 3.08 ABS# (0-10) 03/28/21 21:19 Troponin T Hi Sens 6Hr 78.66 ng/L (0-10) H 03/29/21 01:20 Troponin T Hi Sens 6Hr Delta 9.66 ng/L (0-12) 03/29/21 01:20 NT-Pro-B Natriuret Pep 67242 pg/mL (0-45 0) H 03/28/21 19:34 Total Protein 5.3 g/dL (6.6-8.7 ) L 03/29/21 01:20 Albumin 3.3 g/dL (3.5-5.2 ) L 03/29/21 01:20 Globulin 2.0 g/dL (1.3-4.6 ) 03/29/21 01:20 TSH 4.17 uIU/mL (0.27 -4.20) 03/29/21 01:20 Urine Color Yellow (Yellow) 03/28/21 22:47 Urine Appearance Clear (CLEAR) 03/28/21 22:47 Urine pH 6.5 (5-7) 03/28/21 22:47 Ur Specific Gravit y 1.000 (1.005-1.0 30) L 03/28/21 22:47 Urine Protein Neg (Negative) 03/28/21 22:47 Urine Glucose (UA) Norm (Normal) 03/28/21 22:47 Urine Ketones Negative (Negati ve) 03/28/21 22:47 Urine Blood Neg (Negative) 03/28/21 22:47 Urine Nitrate Positive (Negati ve) H 03/28/21 22:47 Urine Bilirubin Neg (Negative) 03/28/21 22:47 Urine Urobilinogen Norm mg/dL (Negat heena) 03/28/21 22:47 Ur Leukocyte Juanita ase 2+ (Negative) H 03/28/21 22:47 Urine RBC 0-4 /hpf (0-2) H 03/28/21 22:47 Urine WBC 40-55 /hpf (0-5) H 03/28/21 22:47 Ur Squamous Epith Cells 0-4 /hpf (0-5) H 03/28/21 22:47 Amorphous Sediment Not Reportable 03/28/21 22:47 Urine Bacteria Trace /hpf (NONE) 03/28/21 22:47 Nasal/Oral COVID-1 9 PCR Not detected 03/29/21 06:20 Micro: Micro: Microbiology 03/28/21 22:47 Urine Culture - Pr eliminary Urine,Clean Catch Imaging^: CT Chest: Radiologist's impression: 1. No evidence of pulmonary embolus. 2. Cardiomegaly. Improved interstitial edema. 3. Small bilateral pleural effusions with compressive atelectasis in the lung bases is unchanged from yesterday. 4. No other significant changes. Echo: My impression: The echo was done on 03/30/2021 severe diffuse hypokinesia of the low LV apex. LV ejection fraction around 35 to 40% (visual). Mild left ventricular hypertrophy. Mildly increased left atrial size. Interatrial septum bulging to the right. Thickened mitral valve. Mild mitral annular calcification. Moderate mitral valve regurgitation. Thickened aortic valve. Mild aortic valve regurgitation. Trace tricuspid valve regurgitation. At least moderate left-sided pleural effusion. Trivial pericardial effusion. There are no intracardiac masses. No previous study is available for comparison. EKG^: EKG 1: My Interpretation: Sinus rhythm with a poor R wave progression. Minimal ST elevation with a T inversions in leads V2 to V4. T inversions in lead I and aVL. Nonspecific T wave changes in the other leads. Features suggestive of recent anterior myocardial infarction with anterolateral ischemia A&P Assessment and plan (1) Recent myocardial infarction of anterior wall: Patient is a clinical features are consistent with recent anterior wall myocardial infarction with postinfarction angina. Hemodynamically she seems to be stable. Her baseline elevated troponin T most likely from the recent myocardial infarction. She may be treated with Plavix, aspirin, beta-hiral, statin and other symptomatic measures. Status: Acute (2) Acute CHF (congestive heart failure): She may be carefully treated with IV diuretics. Status: Acute Qualifiers: Heart failure type: unspecified Qualified Code(s): I50.9 - Heart failure, unspecified (3) Ischemic cardiomyopathy: I may start her on Entresto and also spironolactone. She may be closely monitored on telemetry. Status: Acute (4) Hypertension: Status: Acute Qualifiers: Hypertension type: unspecified secondary hypertension Qualified Code(s): I15.9 - Secondary hypertension, unspecified Additional A&P Information Optimizing the medical treatment will be the plan of action. I discussed the patient's and daughter about invasive cardiac work-up. Both of them agreed that the patient is not a candidate for invasive or interventional cardiac work-up. They just want her to be treated medically. They also mentioned that the patient is not wanting to undergo any chest compressions/defibrillation or ventilatory support.. The family understand implications. Consult Attestations Medical Necessity Statement: Patient requires continued hospital stay for close monitoring and further management Coding Level of Care Code Acute [employer] [facility] Fwd History Detailed Exam Detailed Medical Decision Making High Complexity Diagnoses Recent myocardial infarction of anterior wall Acute CHF (congestive heart failure) I50.9 Heart failure type: unspecified Ischemic cardiomyopathy I25.5 Hypertension I15.9 Hypertension type: unspecified secondary hypertension Time Spent (min) 60
[2021-03-30] MEDS: clopidogrel 300 mg Tablet PO (18:19)
--- NOTE | 2021-03-30 19:35 | PC.NURSE ---
Shift Note Frequent safety and comfort rounds continue. Orders and/or nursing care completed as indicated. Patient monitored for response to intervention and treatment(s).dr chaudhari consulted today.will medically manage,as family requests conservative management.spouse and daughter request pt's code status be changed to AND.dr dupree notified. Will continue to monitor.
[2021-03-30] MEDS: carbidopa-levodopa ER 50-200mg Tablet 1 EACH PO (21:11)
[2021-03-30] MEDS: atorvastatin 40 mg Tablet PO (21:11)
[2021-03-30] MEDS: pantoprazole DR 40 mg Tablet PO (21:11)
--- NOTE | 2021-03-30 21:28 | PC.NURSE ---
Awaiting pharmacy to bring Mysoline.
--- NOTE | 2021-03-30 21:48 | PC.NURSE ---
Dr. Salinas gave order to transfer patient to Med Surg. Report given and patient transferred.
[2021-03-30] MEDS: primidone 50 mg Tablet 300 MG PO (21:57)
[2021-03-31] VITALS: BP 118/60; PULSE 68; RESP 14; TEMP 36.6; O2SAT 93
[2021-03-31 02:57] LABS: Anion Gap 11.4 (5-19); Blood Urea Nitrogen 18 mg/dL (8-23); Calcium 8.6 mg/dL (8.5-10.5); Carbon Dioxide 32 mmol/L (22-29); Chloride 97 mmol/L (98-107); Glucose 114 mg/dL (65-115); Osmolality Calculated 287 mOsm/kg (285-295); Potassium 3.4 mmol/L (3.5-5.1); Sodium 137 mmol/L (136-145)
[2021-03-31 04:00] VITALS: BP 133/66; PULSE 111; RESP 15; TEMP 36.6; O2SAT 92
[2021-03-31] MEDS: levoFLOXacin 750 mg Tablet PO (05:43)
[2021-03-31 08:00] VITALS: BP 145/66; PULSE 78; RESP 16; TEMP 36.7; O2SAT 94
[2021-03-31] MEDS: carbidopa-levodopa 25-100mg Tablet 1.5 EACH PO ×5 (10:27→21:00)
[2021-03-31] MEDS: enoxaparin 60 mg/0.6 mL Syringe 50 MG SUBCUT ×2 (10:28→20:59)
[2021-03-31] MEDS: clopidogrel 75 mg Tablet PO (10:29)
[2021-03-31] MEDS: metoprolol succinate ER (24 HR) 25 mg Tablet 12.5 MG PO (10:29)
[2021-03-31] MEDS: aspirin 81 mg EC Tablet PO (10:29)
[2021-03-31] MEDS: FUROsemide 20 mg Tablet PO (10:29)
[2021-03-31] MEDS: amlodipine 5 mg Tablet 2.5 MG PO (10:29)
[2021-03-31] MEDS: potassium chloride ER 10 mEq Tablet PO (10:30)
[2021-03-31] MEDS: pramipexole 0.25 mg Tablet 2 MG PO ×3 (10:30→21:00)
[2021-03-31] MEDS: spironolactone 25 mg Tablet PO (10:30)
[2021-03-31 12:00] VITALS: PULSE 78; RESP 16; TEMP 37; O2SAT 95
--- NOTE | 2021-03-31 12:12 | PC.NURSE ---
patient refused the blood presure. she said it hurt too bad
--- NOTE | 2021-03-31 12:16 | P.DS_ITS ---
Discharge Providers Date of Admission: 03/29/21 00:27 Date of Discharge: March 31, 2021 Attending Provider at Admission: Holli Salinas MD Attending Provider at Discharge: Charelne Russo MD Primary Care Provider: Deyanira Worthington MD Diagnoses at Discharge Discharge Diagnosis (1) Recent myocardial infarction of anterior wall: Status: Acute (2) Acute CHF (congestive heart failure): Status: Acute Qualifiers: Heart failure type: unspecified Qualified Code(s): I50.9 - Heart failure, unspecified (3) Ischemic cardiomyopathy: Status: Acute (4) Hypertension: Status: Acute Qualifiers: Hypertension type: unspecified secondary hypertension Qualified Cod e(s): I15.9 - Secondary hypertension, unspecified Reason for Visit Reason for Visit: CHEST PAIN Hospital Course Hospital Course 80-year-old female who was admitted for management of acute onset of congestive heart failure, echo revealed EF 35%, cardiology was consulted, patient was deemed not a suitable candidate for angiogram considering her dementia, old age and family requested medical management as well. Patient does complain of left- sided chest discomfort on and off. She will be discharged home on evidence- based medication for heart failure with reduced action fraction, ischemic cardiomyopathy. Her EKG consistent with recent myocardial infarction. Q waves with T wave inversions noted. Her foot x-ray was done when bruising was noticed around left great toe which showed osteoarthritic changes no active fracture noted. Venous Dopplers without DVT, CTA ruled out PE. Clinically looks euvolemic, she will be given Lasix to be taken on as-needed basis every other day with potassium supplementation. Instructions given to hold medications if systolic blood pressure less than 100 mmHg. Family updated, they changed her CODE STATUS to DNR/DNI, and daughter were present in the room. Patient at baseline is bedbound due to debilitating arthritis, daughters try to help her out, she uses wheelchair for ambulation, assisted spoon feeding. Physical Exam Narrative: EXAM NARRATIVE: Patient laying comfortably in her bed Not complaining of chest pain No neurological deficit She does have crusting of right eye Feet without swelling cellulitis or excessive swelling Clinically does look dry No audible stridor or wheezing Saturating well on room air Discharge Data Data Completed and Pending: Completed Studies During Hospitalization Category Date Time Status CT angio chest PE protcl 72250 Rout ine Cat Scan 03/29/21 06:[address] chest wo con 7 1250 Stat Cat Scan 03/28/21 20:07 Completed XR chest 1V flori ble [id number] Stat Exams 03/28/21 18:59 Completed XR foot LT 2V 736 20 Stat Exams 03/29/21 12:33 [place] [id number] Routin e Ultrasound 03/29/21 11:13 Completed CV. echo complete * [id number] Routine Ultrasound 03/29/21 00:23 Completed Labs from last 24 hours 03/31/21 02:13 Sodium 137 Potassium 3.4 L Chloride 97 L Carbon Dioxide 32 H Anion Gap 11.4 BUN 18 Creatinine 0.6 GFR Calculation Not Reportable Glucose 114 Calculated Osmolal ity 287 Calcium 8.6 Vitals: Last Vital Signs Temp 98.6 F 03/31/21 12:00 Pulse 78 03/31/21 12:00 Resp 16 03/31/21 12:00 BP 145/66 03/31/21 08:00 Pulse Ox 95 03/31/21 12:00 Discharge Plan Discharge Patient Disposition: Home Condition: Stable Prescriptions: New aspirin 81 mg Tablet,Delayed Release (Dr/Ec) 81 mg PO DAILY Qty: 30 RF: 1 atorvastatin 40 mg Tablet 40 mg PO BEDTIME 30 Days Qty: 30 RF: 0 clopidogrel 75 mg Tablet 75 mg PO DAILY 30 Days Qty: 30 RF: 1 spironolactone 25 mg Tablet 25 mg PO DAILY 30 Days Qty: 30 RF: 0 metoprolol succinate 25 mg Tablet Extended Release 24 Hr 12.5 mg PO DAILY 30 Days Qty: 30 RF: 1 Nitrostat 0.4 mg tablet, sublingual 0.4 mg sublingual Q5M Qty: 7 RF: 0 Lasix 20 mg tablet 10 mg PO Q48H PRN (Reason: weight gain) Qty: 30 RF: 0 lisinopril 2.5 mg tablet 2.5 mg PO DAILY Qty: 30 RF: 0 Continued pramipexole 1 mg tablet 2 mg PO TID RF: 0 primidone 50 mg tablet 300 mg PO BEDTIME RF: 0 clonidine 0.2 mg/24 hr patch weekly 0.2 mg transdermal Q7D MDD see pharmacy comment RF: 0 carbidopa-levodopa 50-200 mg tablet extended release 1 tab PO BEDTIME RF: 0 chlorthalidone 25 mg tablet 25 mg PO DAILY RF: 0 amlodipine 5 mg tablet 5 mg PO DAILY RF: 0 entacapone 200 mg tablet 200 mg PO QID RF: 0 alprazolam 0.25 mg tablet 0.25 mg PO QID MDD SEE PHARMACY COMMENT PRN (Reason: Anxiety) RF: 0 methotrexate sodium 2.5 mg tablet 17.5 mg PO Q7D RF: 0 omeprazole 20 mg capsule,delayed release(DR/EC) 20 mg PO DAILY RF: 0 folic acid 1 mg tablet 1 mg PO DAILY RF: 0 carbidopa-levodopa 25-100 mg tablet 1.5 tab PO QID@08,10,12,16 MDD see pharmacy comment RF: 0 cholecalciferol (vitamin D3) [Vitamin D3] 25 mcg (1,000 unit) Tablet 25 mcg PO DAILY RF: 0 ferrous gluconate 324 mg (38 mg iron) tablet 324 mg PO DAILY RF: 0 Changed potassium chloride 10 mEq tablet extended release 10 meq PO Q48H 30 Days Qty: 0 RF: 0 Discharge Orders: Discharge Order (Routine); Ordered 03/31/21 Ordered By: Charlene Russo Referrals: Deyanira Worthington MD [Primary Care Provider] - Discharge Diet: Cardiac Discharge Activity: Wheelchair as instructed Patient Instructions: Opioid Safety Activity Restrictions/Additional Instructions: Your chest pain is most likely related to your recent myocardial infarction. You will be prescribed aspirin, Plavix metoprolol succinate and atorvastatin for your heart tissue injury. If you notice systolic blood pressures less than 90 mmHg please do not take metoprolol succinate or other blood pressure medications. Your ejection fraction is 35% normal is around 55%. The new onset of congestive heart failure seems related to recent myocardial infarction. You can take Lasix on as-needed basis if shortness of breath gets worse or there is fluid weight gain more than 3 pounds in 1 day please hold Lasix if blood pressure stays soft with Lasix I am adding potassium to be taken on every other day basis Discharge Attestations Time Spent in Discharge Care*: less than 30 min Quality Metrics Clinical Quality Measures During this hospital stay, did patient experience: None Coding Level of Care Code Acute [facility] [place] note Diagnoses Recent myocardial infarction of anterior wall Acute CHF (congestive heart failure) I50.9 Heart failure type: unspecified Ischemic cardiomyopathy I25.5 Hypertension I15.9 Hypertension type: unspecified secondary hypertension
--- NOTE | 2021-03-31 13:40 | PM.PN ---
Subjective Subjective: Interval history: Patient denies any chest pain or shortness of breath. Vital signs remained stable Medications: Reviewed: Yes Medication Review Details: Current Medications Acetaminophen (Acetaminophen 325 Mg Tablet) 650 mg PO Q6H PRN PRN Reason: Mild/Mod Pain Or Temp >/= 101 Alprazolam (Alprazolam 0.5 Mg Tablet) 0.25 mg PO QID PRN PRN Reason: Anxiety Amlodipine Besylate (Amlodipine 5 Mg Tablet) 2.5 mg PO DAILY [facility] Last Admin: 03/31/21 10:29 Dose: 2.5 mg Documented by: Aspirin (Aspirin 81 Mg Ec Tablet) 81 mg PO DAILY [facility] Last Admin: 03/31/21 10:29 Dose: 81 mg Documented by: Atorvastatin Calcium (Atorvastatin 40 Mg Tablet) 40 mg PO BEDTIME [facility] Last Admin: 03/30/21 21:11 Dose: 40 mg Documented by: Carbidopa/Levodopa (Carbidopa-Levodopa Er 50-200mg Tablet) 1 each PO BEDTIME [facility] Last Admin: 03/30/21 21:11 Dose: 1 each Documented by: Carbidopa/Levodopa (Carbidopa-Levodopa 25-100mg Tablet) 1.5 each PO QID@08,10,12,16 [facility] Last Admin: 03/31/21 11:45 Dose: 1.5 each Documented by: Clonidine HCl (Clonidine 0.2 Mg/24 Hr Patch) 1 patch TRANSDERMA Q7D [facility] Clopidogrel Bisulfate (Clopidogrel 75 Mg Tablet) 75 mg PO DAILY [facility] Last Admin: 03/31/21 10:29 Dose: 75 mg Documented by: Enoxaparin Sodium (Enoxaparin 60 Mg/0.6 Ml Syringe) 50 mg SUBCUT Q12H [facility] Last Admin: 03/31/21 10:28 Dose: 50 mg Documented by: Furosemide (Furosemide 20 Mg Tablet) 20 mg PO DAILY@0800 [facility] Last Admin: 03/31/21 10:29 Dose: 20 mg Documented by: Levofloxacin (Levofloxacin 750 Mg Tablet) 750 mg PO DAILY@0600 [facility]; Protocol Last Admin: 03/31/21 05:43 Dose: 750 mg Documented by: Metoprolol Succinate (Metoprolol Succinate Er (24 Hr) 25 Mg Tablet) 12.5 mg PO DAILY [facility] Last Admin: 03/31/21 10:29 Dose: 12.5 mg Documented by: Morphine Sulfate (Morphine 4 Mg/Ml Sdv 1 Ml) 2 mg IVP Q4H PRN PRN Reason: SEVERE PAIN Naloxone HCl (Naloxone 0.4 Mg/Ml Sdv) 0.1 mg IVP Q2M PRN PRN Reason: OPIATERV Non-Formulary Medication (Entacapone) 200 mg PO QID [facility] Ondansetron HCl (Ondansetron 2 Mg/Ml Sdv 2 Ml) 4 mg IVP Q8H PRN PRN Reason: vomiting, or N/V if npo Pantoprazole Sodium (Pantoprazole Dr 40 Mg Tablet) 40 mg PO BEDTIME [facility] Last Admin: 03/30/21 21:11 Dose: 40 mg Documented by: Potassium Chloride (Potassium Chloride Er 10 Meq Tablet) 10 meq PO DAILY [facility] Last Admin: 03/31/21 10:30 Dose: 10 meq Documented by: Pramipexole Dihydrochloride (Pramipexole 0.25 Mg Tablet) 2 mg PO TID [facility] Last Admin: 03/31/21 10:30 Dose: 2 mg Documented by: Primidone (Primidone 50 Mg Tablet) 300 mg PO BEDTIME [facility] Last Admin: 03/30/21 21:57 Dose: 300 mg Documented by: Spironolactone (Spironolactone 25 Mg Tablet) 25 mg PO DAILY [facility] Last Admin: 03/31/21 10:30 Dose: 25 mg Documented by: Vitals/I&O/Wt Last Vital Signs Temp 98.6 F 03/31/21 12:00 Pulse 78 03/31/21 12:00 Resp 16 03/31/21 12:00 BP 145/66 03/31/21 08:00 Pulse Ox 95 03/31/21 12:00 03/30/21 03/31/21 03/31/21 22:59 06:59 14:59 Intake Total 200 / 260 Balance 200 / 260 Weight last 48 hrs Weight 108 lb Weight 109 lb Physical Exam Narrative: EXAM NARRATIVE: GENERAL: The patient is alert but somewhat agitated. Not in any acute distress. Patient dialyzes in the bed in a position. She has some flexion contractures of both lower extremity muscles. HEENT: No significant pallor, icterus or lymphadenopathy. The pupils are symmetrical. Oral cavity: There are no mucous membrane lesions. NECK: Trachea appears to be central. No masses noted. No JVD or thyromegaly appreciated. No carotid bruit. Prominent neck veins. RESPIRATORY: Chest is symmetrical. No intercostals muscle retraction or any accessory muscle activation. There is no chest wall tenderness. Breath sounds are diminished bilaterally more so on the left side, at the base. BREASTS: Deferred. HEART: The PMI could not be palpated. No other palpable precordial events. First and second heart sounds are normal. Short systolic murmur at the left sternal border and also in the mitral area. No diastolic murmurs. No pericardial rub. ABDOMEN: No vessel pulsations or distention. No tenderness. No organomegaly appreciated. No abdominal bruit. Bowel sounds are normally heard. : Deferred. RECTAL: Deferred. LYMPHATIC: No lymphadenopathy noted in the neck or groin. EXTREMITIES: Trace edema with no cyanosis. Peripheral pulses are palpable fairly good volume and amplitude. MUSCULOSKELETAL: Patient is bedridden. Good peripheral pulses. No acute joint deformities or swelling. Flexion deformity of the hip and knees SKIN: There are no significant scars or skin rash noted. NEUROPSYCHIATRIC: The patient is alert. No focal motor deficits. Has Some intentional tremor. Seems very confused about dates and times. Data : 03/29/21 01:20 03/31/21 02:13 Other Labs: Laboratory Last Values WBC 4.4 10^3/uL (4.0-10.0) 03/29/21 01:20 Corrected WBC Cancelled 03/28/21 19:36 RBC 3.97 10^6/uL (4.1-5.3) L 03/29/21 01:20 Hgb 12.8 g/dL (11.5-15.3) 03/29/21 01:20 Hct 36.9 % (37.0-47.0) L 03/29/21 01:20 MCV 92.9 fl (81-99) 03/29/21 01:20 MCH 32.2 pg (28.0-34.0) 03/29/21 01:20 MCHC 34.7 g/dL (30.0-36.0) 03/29/21 01:20 RDW 13.5 % (12.1-15.1) 03/29/21 01:20 Plt Count 197 10^3/cmm (130-400) 03/29/21 01:20 MPV 9.9 fL (7.4-10.4) 03/29/21 01:20 Gran % Cancelled 03/28/21 19:36 Neut % (Auto) 76.4 % 03/29/21 01:20 Lymph % (Auto) 15.6 % 03/29/21 01:20 [place] % (Auto) 6.8 % 03/29/21 01:20 Eos % (Auto) 0.7 % 03/29/21 01:20 Baso % (Auto) 0.5 % 03/29/21 01:20 Neut # (Auto) 3.39 10^3/uL (1.8-7.7) 03/29/21 01:20 Lymph # (Auto) 0.7 10^3/uL (0.8-4.8) L 03/29/21 01:20 [place] # (Auto) 0.3 10^3/uL (0.2-0.9) 03/29/21 01:20 Eos # (Auto) 0.0 10^3/uL (0.0-0.8) 03/29/21 01:20 Baso # (Auto) 0.0 10^3/uL (0.0-0.1) 03/29/21 01:20 Absolute Gran (auto) Cancelled 03/28/21 19:36 Nucleated RBC % (auto) 0 % 03/29/21 01:20 Nucleated RBCs # 0.0 /100WBC 03/29/21 01:20 D-Dimer 19.58 ug/mIFEU (0-0.59) H 03/28/21 19:36 Sodium 137 mmol/L (136-145) 03/31/21 02:13 Potassium 3.4 mmol/L (3.5-5.1) L 03/31/21 02:13 Chloride 97 mmol/L (98-107) L 03/31/21 02:13 Carbon Dioxide 32 mmol/L (22-29) H 03/31/21 02:13 Anion Gap 11.4 (5-19) 03/31/21 02:13 BUN 18 mg/dL (8-23) 03/31/21 02:13 Creatinine 0.6 mg/dL (0.5-0.9) 03/31/21 02:13 GFR Calculation Not Reportable 03/31/21 02:13 Glucose 114 mg/dL (65-115) 03/31/21 02:13 Calculated Osmolality 287 mOsm/kg (285-295) 03/31/21 02:13 Uric Acid 4.2 mg/dL (2.4-5.7) 03/29/21 01:20 Calcium 8.6 mg/dL (8.5-10.5) 03/31/21 02:13 Total Bilirubin 0.2 mg/dL (0.15-1.2) 03/29/21 01:20 AST 16 U/L (0-32) 03/29/21 01:20 ALT 8 U/L (0-33) 03/29/21 01:20 Alkaline Phosphatase 56 IU/L (35-105) 03/29/21 01:20 Troponin T Baseline 69 ng/L (0-10) H 03/28/21 19:36 Troponin T 120 Minute 72.08 ng/L (0-10) H 03/28/21 21:19 Delta Troponin T 3.08 ABS# (0-10) 03/28/21 21:19 Troponin T Hi Sens 6Hr 78.66 ng/L (0-10) H 03/29/21 01:20 Troponin T Hi Sens 6Hr Delta 9.66 ng/L (0-12) 03/29/21 01:20 NT-Pro-B Natriuret Pep 19692 pg/mL (0-450) H 03/28/21 19:34 Total Protein 5.3 g/dL (6.6-8.7) L 03/29/21 01:20 Albumin 3.3 g/dL (3.5-5.2) L 03/29/21 01:20 Globulin 2.0 g/dL (1.3-4.6) 03/29/21 01:20 TSH 4.17 uIU/mL (0.27-4.20) 03/29/21 01:20 Urine Color Yellow (Yellow) 03/28/21 22:47 Urine Appearance Clear (CLEAR) 03/28/21 22:47 Urine pH 6.5 (5-7) 03/28/21 22:47 Ur Specific [place] 1.000 (1.005-1.030) L 03/28/21 22:47 Urine Protein Neg (Negative) 03/28/21 22:47 Urine Glucose (UA) Norm (Normal) 03/28/21 22:47 Urine Ketones Negative (Negative) 03/28/21 22:47 Urine Blood Neg (Negative) 03/28/21 22:47 Urine Nitrate Positive (Negative) H 03/28/21 22:47 Urine Bilirubin Neg (Negative) 03/28/21 22:47 Urine Urobilinogen Norm mg/dL (Negative) 03/28/21 22:47 Ur Leukocyte Esterase 2+ (Negative) H 03/28/21 22:47 Urine RBC 0-4 /hpf (0-2) H 03/28/21 22:47 Urine WBC 40-55 /hpf (0-5) H 03/28/21 22:47 Ur Squamous Epith Cells 0-4 /hpf (0-5) H 03/28/21 22:47 Amorphous Sediment Not Reportable 03/28/21 22:47 Urine Bacteria Trace /hpf (NONE) 03/28/21 22:47 Nasal/Oral COVID-19 PCR Not detected 03/29/21 06:20 Micro: Microbiology 03/28/21 22:47 Urine Culture - Final Urine,Clean Catch A&P Assessment and plan (1) Recent myocardial infarction of anterior wall: Patient is a clinical features are consistent with recent anterior wall myocardial infarction with postinfarction angina. Hemodynamically she seems to be stable. Her baseline elevated troponin T most likely from the recent myocardial infarction. She may be treated with Plavix, aspirin, beta-hiral, statin and other symptomatic measures. The patient and the family does not want any invasive or interventional procedures. Currently the patient seems to be stable. May continue on the current medications. Status: Acute (2) Acute CHF (congestive heart failure): Clinically appears to be compensated. May continue on the current medications. Status: Acute Qualifiers: Heart failure type: unspecified Qualified Code(s): I50.9 - Heart failure, unspecified (3) Ischemic cardiomyopathy: I may start her on Entresto and also spironolactone. Since the patient needs to be off the lisinopril for 3 days, may start Entresto as an outpatient. Status: Acute (4) Hypertension: Since the blood pressure is in the normal range, patient may not require any medication changes at this time. Advised to continue on the current measures. Status: Acute Qualifiers: Hypertension type: unspecified secondary hypertension Qualified Code(s): I15.9 - Secondary hypertension, unspecified (5) Hypokalemia: Potassium supplement for the hyperkalemia. Continue on the current measures. Status: Acute Additional A&P Information Optimizing the medical treatment will be the plan of action. I discussed the patient's and daughter about invasive cardiac work-up. Both of them agreed that the patient is not a candidate for invasive or interventional cardiac work-up. They just want her to be treated medically. They also mentioned that the patient is not wanting to undergo any chest compressions/defibrillation or ventilatory support.. The family understands the implications. Attestations Medical Necessity Statement*: Possible discharge home today Coding Level of Care Code Acute Health Companion for [facility] Fwd Diagnoses Recent myocardial infarction of anterior wall Acute CHF (congestive heart failure) I50.9 Heart failure type: unspecified Ischemic cardiomyopathy I25.5 Hypertension I15.9 Hypertension type: unspecified secondary hypertension Hypokalemia E87.6
[2021-03-31 16:00] VITALS: BP 129/68; PULSE 74; RESP 18; TEMP 37; O2SAT 92
[2021-03-31 20:00] VITALS: BP 115/53; PULSE 65; RESP 16; TEMP 36.8; O2SAT 95
[2021-03-31] MEDS: primidone 50 mg Tablet 300 MG PO (20:59)
[2021-03-31] MEDS: atorvastatin 40 mg Tablet PO (21:00)
[2021-03-31] MEDS: pantoprazole DR 40 mg Tablet PO (21:01)
[2021-03-31] MEDS: carbidopa-levodopa ER 50-200mg Tablet 1 EACH PO (23:14)
[2021-04-01] VITALS (7 sets, daily range): BP systolic 110–148; BP diastolic 53–74; PULSE 64–92; RESP 17–18; TEMP 36.4–37.2; O2SAT 93–98
[2021-04-01] MEDS: levoFLOXacin 750 mg Tablet PO (05:17)
[2021-04-01] MEDS: spironolactone 25 mg Tablet PO (08:56)
[2021-04-01] MEDS: FUROsemide 20 mg Tablet PO (08:56)
[2021-04-01] MEDS: aspirin 81 mg EC Tablet PO (08:56)
[2021-04-01] MEDS: amlodipine 5 mg Tablet 2.5 MG PO (08:56)
[2021-04-01] MEDS: potassium chloride ER 10 mEq Tablet PO (08:56)
[2021-04-01] MEDS: clopidogrel 75 mg Tablet PO (08:56)
[2021-04-01] MEDS: enoxaparin 60 mg/0.6 mL Syringe 50 MG SUBCUT ×2 (08:57→20:49)
[2021-04-01] MEDS: metoprolol succinate ER (24 HR) 25 mg Tablet 12.5 MG PO (08:57)
[2021-04-01] MEDS: carbidopa-levodopa 25-100mg Tablet 1.5 EACH PO ×3 (09:06→15:33)
[2021-04-01] MEDS: pramipexole 0.25 mg Tablet 2 MG PO ×3 (09:07→20:53)
--- NOTE | 2021-04-01 13:55 | PM.PN ---
Subjective Subjective: Interval history: After I had placed my discharge orders, family requested placement [place] [facility] [place] because daughters are not able to be there 29/01 and she needs 2 person assist, airborne operations manager updated, Vitals/I&O/Wt Last Vital Signs Temp 97.9 F 04/01/21 11:34 Pulse 92 04/01/21 11:34 Resp 18 04/01/21 11:34 BP 129/67 04/01/21 11:34 Pulse Ox 98 04/01/21 11:34 03/31/21 04/01/21 04/01/21 22:59 06:59 14:59 Intake Total 180 / 180 Balance 180 / 180 Weight last 48 hrs Weight 48.943 kg Weight 48.988 kg Physical Exam Narrative: EXAM NARRATIVE: Patient was sitting in a chair able to communicate without any discomfort S1, S2 No chest pain Clinically dehydrated Pleasant and cooperative during my evaluation Breakfast tray in front of her No audible stridor or wheezing Saturating well on room air Data : 03/29/21 01:20 03/31/21 02:13 Micro: Microbiology 03/28/21 22:47 Urine Culture - Final Urine,Clean Catch A&P Additional A&P Information Patient is not endorsing recurrent chest pain, medical management to be continued, appreciate cardiology input She is doing fine sitting in chair I did request PT evaluation today, she has limited ambulation because of extremity contractures however she did try to get out of bed sitting in bedside chair A detailed meeting took place between the family and the shoe caser, family has not given their final verdict. She will be discharged as soon as we have a safe disposition plan for her Attestations Medical Necessity Statement*: Awaiting decision from family Coding Level of Care Code Acute Cloud Security Architect for Shira Cagle
--- NOTE | 2021-04-01 14:43 | PC.NUTR ---
Nutrition note: Decreased Ensure Plus to 1x/day per family statements that pt not drinking them. Notified nurse Patito.
--- NOTE | 2021-04-01 14:48 | PC.CHAP ---
Pastoral Care Encounter/Spiritual Assessment Type of Contact [] Declined doggy daycare activities director visit [] Patient/Family/Request visit [] Outpatient visit [xx] Follow-up visit [] Physician referral [] Code/Alert [] Routine visit [] Staff referral [] Actively dying [] Patient sleeping [] Family support [] [] Out of room [] Palliative care [] [xx] Receiving care in room [] Pre-surgical visit [] Trauma [] Long length of stay [] ICU visit [] Other: Relational/Emotional Strength [] Patient feels connected with others/family/visitors/staff [] Distress [] Loneliness/isolation [] Abandonment Spirituality of Patient [] Person of Dorothy [] Attends Christianity of their Dorothy [] Believes in Prayer [] Reads Bible or Holiness materials [] There are Spiritual issues to be addressed Tray Filler Interventions [] Prayer [] Active listening [] Non-anxious presence [] Spiritual/emotional support [] Crisis/trauma care [] Spiritual counseling [] Bereavement support [] Provided bereavement packet [] Provided Bible/devotional materials [] Provided toy/stuffed animal, coloring book to patient or family member [] Provided Communion [] Anointing/[place] [] Salvation [] Completed spiritual assessment [] Other: Impact on Illness or Injury [] Angry [] Fearful [] Anxious [] Often cries [] Exhaustion [] Unable to work [] Unable to attend yarsanism [] Unable to walk/stand [] Unable to read [] Unable to drive [] Unable to eat/drink [] Unable to sleep [] Unable to be with family [] Patient intubated [] Other: Summary Tray Filler attempted follow up visit but patient was receiving medical care in room. Follow up later. Time spent with patient
--- NOTE | 2021-04-01 15:23 | PC.SOCIAL ---
IMM Update Page 2 of [facility] updated and reviewed. Initialed timed and dated and copy left in chart.
[2021-04-01] MEDS: primidone 50 mg Tablet 300 MG PO (20:52)
[2021-04-01] MEDS: atorvastatin 40 mg Tablet PO (20:53)
[2021-04-01] MEDS: pantoprazole DR 40 mg Tablet PO (20:53)
[2021-04-01] MEDS: carbidopa-levodopa ER 50-200mg Tablet 1 EACH PO (20:55)
[2021-04-02 04:00] VITALS: BP 126/66; PULSE 82; RESP 18; TEMP 36.9; O2SAT 94
[2021-04-02] MEDS: levoFLOXacin 750 mg Tablet PO (06:18)
[2021-04-02 07:36] VITALS: BP 144/69; PULSE 68; RESP 17; TEMP 37.3; O2SAT 95
[2021-04-02] MEDS: carbidopa-levodopa 25-100mg Tablet 1.5 EACH PO ×4 (08:03→15:19)
[2021-04-02] MEDS: aspirin 81 mg EC Tablet PO (08:03)
[2021-04-02] MEDS: enoxaparin 60 mg/0.6 mL Syringe 50 MG SUBCUT ×2 (08:03→21:54)
[2021-04-02] MEDS: metoprolol succinate ER (24 HR) 25 mg Tablet 12.5 MG PO (08:04)
[2021-04-02] MEDS: potassium chloride ER 10 mEq Tablet PO (08:04)
[2021-04-02] MEDS: spironolactone 25 mg Tablet PO (08:04)
[2021-04-02] MEDS: amlodipine 5 mg Tablet 2.5 MG PO (08:04)
[2021-04-02] MEDS: FUROsemide 20 mg Tablet PO (08:04)
[2021-04-02] MEDS: clopidogrel 75 mg Tablet PO (08:04)
[2021-04-02] MEDS: pramipexole 0.25 mg Tablet 2 MG PO ×3 (09:02→21:56)
[2021-04-02 11:29] VITALS: BP 110/61; PULSE 66; RESP 17; TEMP 37.1; O2SAT 95
--- NOTE | 2021-04-02 12:22 | PM.PN ---
Subjective Subjective: Interval history: Patient is not complaining of active chest pain, no overnight events, Vitals/I&O/Wt Last Vital Signs Temp 98.8 F 04/02/21 11:29 Pulse 66 04/02/21 11:29 Resp 17 04/02/21 11:29 BP 110/61 04/02/21 11:29 Pulse Ox 95 04/02/21 11:29 04/01/21 04/02/21 04/02/21 22:59 06:59 14:59 Intake Total 50 / 230 60 / 60 Output Total 300 / 300 Balance -250 / -70 60 / 60 Weight last 48 hrs Weight 48.716 kg Weight 48.943 kg Physical Exam Narrative: EXAM NARRATIVE: Patient is laying comfortably in her bed able to answer my questions appropriately No active neurological deficit Does make eye contact S1, S2 sinus rhythm Abdomen soft No joint swelling Saturating well on room air Data : 03/29/21 01:20 03/31/21 02:13 A&P Assessment and plan (1) Ischemic cardiomyopathy: Status: Acute (2) Hypokalemia: Status: Acute (3) Recent myocardial infarction of anterior wall: Status: Acute (4) NSTEMI (non-ST elevated myocardial infarction): Status: Acute Additional A&P Information Conservative management, case resource manager working diligently to find placement at a fpc, is willing to pay [id number] for SNF, patient is not complaining active chest pain, medical management, normal hemodynamically, able to tolerate her diet Attestations Medical Necessity Statement*: Anticipating placement to a fpc Time Spent in Patient Care: less than 15 minutes Coding Level of Care Code Acute Governor Assembler for Shira Cagle Diagnoses Ischemic cardiomyopathy I25.5 Hypokalemia E87.6 Recent myocardial infarction of anterior wall NSTEMI (non-ST elevated myocardial infarction) I21.4
[2021-04-02 15:42] VITALS: BP 128/66; PULSE 62; RESP 18; TEMP 37.1; O2SAT 97
--- NOTE | 2021-04-02 19:28 | PC.NURSE ---
Report to Aurelio DUVAL at this time.
[2021-04-02 20:00] VITALS: BP 146/51; PULSE 76; RESP 17; TEMP 37.6; O2SAT 97
[2021-04-02] MEDS: pantoprazole DR 40 mg Tablet PO (21:56)
[2021-04-02] MEDS: atorvastatin 40 mg Tablet PO (21:57)
[2021-04-02] MEDS: carbidopa-levodopa ER 50-200mg Tablet 1 EACH PO (21:57)
[2021-04-02 23:53] VITALS: BP 139/64; PULSE 70; RESP 18; TEMP 37.6; O2SAT 96
[2021-04-03] VITALS (9 sets, daily range): BP systolic 110–148; BP diastolic 59–66; PULSE 63–83; RESP 14–16; TEMP 36.6–37.1; O2SAT 94–97
[2021-04-03] MEDS: levoFLOXacin 750 mg Tablet PO (06:39)
[2021-04-03] MEDS: potassium chloride ER 10 mEq Tablet PO (08:43)
[2021-04-03] MEDS: carbidopa-levodopa 25-100mg Tablet 1.5 EACH PO ×4 (08:43→17:18)
[2021-04-03] MEDS: FUROsemide 20 mg Tablet PO (08:43)
[2021-04-03] MEDS: clopidogrel 75 mg Tablet PO (08:43)
[2021-04-03] MEDS: aspirin 81 mg EC Tablet PO (08:43)
[2021-04-03] MEDS: metoprolol succinate ER (24 HR) 25 mg Tablet 12.5 MG PO (08:43)
[2021-04-03] MEDS: spironolactone 25 mg Tablet PO (08:44)
[2021-04-03] MEDS: enoxaparin 60 mg/0.6 mL Syringe 50 MG SUBCUT (08:44)
[2021-04-03] MEDS: amlodipine 5 mg Tablet 2.5 MG PO (08:44)
[2021-04-03] MEDS: pramipexole 0.25 mg Tablet 2 MG PO ×2 (08:45→17:18)
--- NOTE | 2021-04-03 10:01 | PC.SOCIAL ---
IMM update IMM update with patient's . Verbalized an understanding. Initialled, dated, timed, and placed in chart.
--- NOTE | 2021-04-03 14:34 | PC.CHAP ---
Pastoral Care Encounter/Spiritual Assessment Type of Contact [] Declined certified pedorthotist visit [] Patient/Family/Request visit [] Outpatient visit [XX] Follow-up visit [] Physician referral [] Code/Alert [XX] Routine visit [] Staff referral [] Actively dying [XX] Patient sleeping [] Family support [] [] Out of room [] Palliative care [] [] Receiving care in room [] Pre-surgical visit [] Trauma [] Long length of stay [] ICU visit [XX] Other: Pt's daughter at bedside Relational/Emotional Strength [] Patient feels connected with others/family/visitors/staff [] Distress [] Loneliness/isolation [] Abandonment Spirituality of Patient [] Person of Dorothy [] Attends Oriental Orthodox of their Dorothy [] Believes in Prayer [] Reads Bible or Quaker materials [XX] There are Spiritual issues to be addressed Station Manager Interventions [] Prayer [XX] Active listening [XX] Non-anxious presence [] Spiritual/emotional support [] Crisis/trauma care [] Spiritual counseling [] Bereavement support [] Provided bereavement packet [] Provided Bible/devotional materials [] Provided toy/stuffed animal, coloring book to patient or family member [] Provided Communion [] Anointing/[place] [] Salvation [] Completed spiritual assessment [] Other: Impact on Illness or Injury [] Angry [] Fearful [] Anxious [] Often cries [] Exhaustion [] Unable to work [] Unable to attend faith [] Unable to walk/stand [] Unable to read [] Unable to drive [] Unable to eat/drink [] Unable to sleep [] Unable to be with family [] Patient intubated [XX] Other: [place] [facility] Summary: Visit was with pt's daughter. Pt lived at home with and family caring for them. Pt has several diagnoses. Upon discharge, it has been determined that she [place] need [place] go [place] [facility]. Pt has family support. Pt is not of any particular alevism tradition. Time spent with patient: 5 mins
--- NOTE | 2021-04-03 15:30 | PM.PN ---
Subjective Subjective: Interval history: Patient is doing fine no overnight events awaiting assisted placement facilities engineering manager updated Family will pay [id number] Did another family meeting yesterday Vitals/I&O/Wt Last Vital Signs Temp 97.9 F 04/03/21 11:58 Pulse 83 04/03/21 11:58 Resp 16 04/03/21 11:58 BP 135/66 04/03/21 11:58 Pulse Ox 96 04/03/21 11:58 04/03/21 04/03/21 04/03/21 06:59 14:59 22:59 Intake Total 120 / 120 Balance 120 / 120 Weight last 48 hrs Weight 48.716 kg Physical Exam Narrative: EXAM NARRATIVE: Patient laying comfortably in her bed saturating well on room air Appears euvolemic Well oriented to time place and person Awake no neurological deficit Extremity contractures Right eye crusting noted Abdomen soft S1, S2 with systolic murmur Bilateral breath sounds without adventitious rhonchi or crackles Data : 03/29/21 01:20 03/31/21 02:13 A&P Additional A&P Information Patient is awaiting placement to SNF NSTEMI: Medical management No recurrence of chest pain Continue Parkinson's meds Normotensive DNR/DNI Baseline cognitive impairment with dementia facilities engineering manager updated Did foot x-ray which did not show any fractures, mild bruising of left toe No signs of DVT Attestations Medical Necessity Statement*: Anticipating discharge tomorrow Time Spent in Patient Care: less than 15 minutes Coding Level of Care Code Acute Caustic Room Attendant for Shira Cagle
[2021-04-04 06:00] VITALS: PULSE 78
[2021-04-04] MEDS: metoprolol succinate ER (24 HR) 25 mg Tablet 12.5 MG PO (07:53)
[2021-04-04] MEDS: FUROsemide 20 mg Tablet PO (07:54)
[2021-04-04] MEDS: amlodipine 5 mg Tablet 2.5 MG PO (07:54)
[2021-04-04] MEDS: aspirin 81 mg EC Tablet PO (07:54)
[2021-04-04] MEDS: potassium chloride ER 10 mEq Tablet PO (07:54)
[2021-04-04] MEDS: clopidogrel 75 mg Tablet PO (07:54)
[2021-04-04] MEDS: spironolactone 25 mg Tablet PO (07:54)
[2021-04-04] MEDS: pramipexole 0.25 mg Tablet 2 MG PO ×3 (07:55→20:53)
[2021-04-04] MEDS: carbidopa-levodopa 25-100mg Tablet 1.5 EACH PO ×4 (07:55→15:44)
[2021-04-04 07:56] VITALS: BP 150/74; PULSE 73; RESP 16; TEMP 36.7; O2SAT 95
[2021-04-04] MEDS: enoxaparin 60 mg/0.6 mL Syringe 50 MG SUBCUT ×2 (07:56→20:54)
[2021-04-04 11:09] VITALS: BP 145/71; PULSE 77; RESP 16; TEMP 36.9; O2SAT 94
[2021-04-04 15:23] VITALS: BP 118/61; PULSE 73; RESP 16; TEMP 37.1; O2SAT 97
--- NOTE | 2021-04-04 17:51 | P.PN_ITS ---
Subjective Subjective: Interval history: Patient seen and examined today. No acute events overnight. Awaiting senior living placement. Vitals/I&O/Wt Last Vital Signs Temp 98.7 F 04/04/21 15:23 Pulse 73 04/04/21 15:23 Resp 16 04/04/21 15:23 BP 118/61 04/04/21 15:23 Pulse Ox 97 04/04/21 15:23 04/04/21 04/04/21 04/04/21 06:59 14:59 22:59 Intake Total 360 / 360 Balance 360 / 360 Physical Exam Narrative: EXAM NARRATIVE: EXAM NARRATIVE: Patient laying comfortably in her bed saturating well on room air Appears euvolemic Well oriented to time place and person Awake no neurological deficit Extremity contractures Right eye crusting noted Abdomen soft S1, S2 with systolic murmur Bilateral breath sounds without adventitious rhonchi or crackles Data : 03/29/21 01:20 03/31/21 02:13 A&P Assessment and plan (1) NSTEMI (non-ST elevated myocardial infarction): Status: Acute Additional A&P Information Patient is awaiting placement to SNF NSTEMI: Medical management No recurrence of chest pain Continue Parkinson's meds Normotensive DNR/DNI Baseline cognitive impairment with dementia sales service manager updated Attestations Medical Necessity Statement*: Awaiting placement to SNF Time Spent in Patient Care: less than 15 minutes Coding Level of Care Code Acute Health Care Liaison for Shira Cagle Diagnoses NSTEMI (non-ST elevated myocardial infarction) I21.4
[2021-04-04 20:00] VITALS: BP 113/49; PULSE 72; RESP 18; TEMP 36.6; O2SAT 94
[2021-04-04] MEDS: pantoprazole DR 40 mg Tablet PO (20:53)
[2021-04-04] MEDS: carbidopa-levodopa ER 50-200mg Tablet 1 EACH PO (20:53)
[2021-04-04] MEDS: atorvastatin 40 mg Tablet PO (20:53)
[2021-04-05] VITALS: BP 120/68; PULSE 72; RESP 16; TEMP 36.3; O2SAT 96
[2021-04-05 04:00] VITALS: BP 151/72; PULSE 71; RESP 16; TEMP 36.8; O2SAT 97
[2021-04-05 07:13] VITALS: BP 147/80; PULSE 73; RESP 16; TEMP 37.1; O2SAT 98
[2021-04-05] MEDS: potassium chloride ER 10 mEq Tablet PO (08:46)
[2021-04-05] MEDS: levoFLOXacin 750 mg Tablet PO (08:46)
[2021-04-05] MEDS: metoprolol succinate ER (24 HR) 25 mg Tablet 12.5 MG PO (08:46)
[2021-04-05] MEDS: FUROsemide 20 mg Tablet PO (08:47)
[2021-04-05] MEDS: aspirin 81 mg EC Tablet PO (08:47)
[2021-04-05] MEDS: spironolactone 25 mg Tablet PO (08:47)
[2021-04-05] MEDS: pramipexole 0.25 mg Tablet 2 MG PO ×3 (08:47→21:36)
[2021-04-05] MEDS: amlodipine 5 mg Tablet 2.5 MG PO (08:47)
[2021-04-05] MEDS: clopidogrel 75 mg Tablet PO (08:47)
[2021-04-05] MEDS: carbidopa-levodopa 25-100mg Tablet 1.5 EACH PO ×4 (08:47→17:01)
[2021-04-05] MEDS: enoxaparin 60 mg/0.6 mL Syringe 50 MG SUBCUT ×2 (08:48→20:25)
--- NOTE | 2021-04-05 10:15 | PC.SOCIAL ---
IMM Update Pg. 2 of IMM updated and reviewed. Initialed, dated, and timed. Copy provided to patient and family.
--- NOTE | 2021-04-05 10:25 | PC.NURSE ---
Rcvd order from Dr Morgan to straight cath patient once for UA. New Account Interviewer put orders in.
[2021-04-05 10:41] LABS: Add Urine Culture? Yes; Add Urine Microscopic? YES; Bacteria Urine TRACE /hpf; Bilirubin Urine Neg (Negative); Blood Urine Neg (Negative); Glucose Urine UA Norm (Normal); Ketones Urine Negative (Negative); Leukocyte Esterase Urine 2+ (Negative); Mucus Urine TRACE /hpf; Nitrate Urine Negative (Negative); Protein Urine Neg (Negative); Urine Appearance SL Hazy (CLEAR); Urine Color Yellow (Yellow); Urobilinogen Urine Norm (Negative); WBC Urine 25-40 /hpf (0-5); pH Urine 7 (5-7)
--- NOTE | 2021-04-05 13:57 | P.PN_ITS ---
Subjective Subjective: Interval history: Patient seen and examined today. No acute events overnight. Awaiting retirement placement. Vitals/I&O/Wt Last Vital Signs Temp 98.8 F 04/05/21 07:13 Pulse 73 04/05/21 07:13 Resp 16 04/05/21 07:13 BP 147/80 04/05/21 07:13 Pulse Ox 98 04/05/21 07:13 04/04/21 04/05/21 04/05/21 22:59 06:59 14:59 Intake Total 120 / 480 220 / 220 Balance 120 / 480 220 / 220 Weight last 48 hrs Weight 48.534 kg Physical Exam Narrative: EXAM NARRATIVE: EXAM NARRATIVE: Patient laying comfortably in her bed saturating well on room air Appears euvolemic Well oriented to time place and person Awake no neurological deficit Extremity contractures Right eye crusting noted Abdomen soft S1, S2 with systolic murmur Bilateral breath sounds without adventitious rhonchi or crackles Data : 03/29/21 01:20 03/31/21 02:13 A&P Assessment and plan (1) NSTEMI (non-ST elevated myocardial infarction): Status: Acute Additional A&P Information Patient is awaiting placement to SNF NSTEMI: Medical management No recurrence of chest pain Continue Parkinson's meds Normotensive DNR/DNI Baseline cognitive impairment with dementia enrollment management manager updated Attestations Medical Necessity Statement*: awaiting retirement placement Time Spent in Patient Care: less than 15 minutes Coding Level of Care Code Acute Preparing Box Tender for Shira Cagle Diagnoses NSTEMI (non-ST elevated myocardial infarction) I21.4
[2021-04-05 15:49] VITALS: BP 157/43; PULSE 83; RESP 17; TEMP 36.9; O2SAT 97
--- NOTE | 2021-04-05 16:27 | PC.NUTR ---
Nutrition reassessment: Recommend to assist pt at meals as needed, given hx of needing assistance this admission. Recommend to encourage po intakes of meals/supplements to optimize nutrition and provide meal preferences as appropriate. Recommend consideration of liberalization to Regular diet to improve intakes. See full RD assessments for further details.
[2021-04-05 20:00] VITALS: BP 131/72; PULSE 86; RESP 16; TEMP 36.7; O2SAT 97
[2021-04-05] MEDS: carbidopa-levodopa ER 50-200mg Tablet 1 EACH PO (21:36)
[2021-04-05] MEDS: pantoprazole DR 40 mg Tablet PO (21:37)
[2021-04-05] MEDS: atorvastatin 40 mg Tablet PO (21:37)
--- NOTE | 2021-04-05 21:41 | P.DS_ITS ---
Discharge Providers Date of Admission: 03/29/21 00:27 Date of Discharge: April 06, 2021 Attending Provider at Admission: Holli Salinas MD Attending Provider at Discharge: Marina Morgan MD Primary Care Provider: Deyanira Worthington MD Diagnoses at Discharge Discharge Diagnosis (1) NSTEMI (non-ST elevated myocardial infarction): Status: Acute (2) Parkinsons disease: Status: Acute (3) Hypertension: Status: Acute Qualifiers: Hypertension type: unspecified secondary hypertension Qualified Code(s): I15.9 - Secondary hypertension, unspecified Reason for Visit Reason for Visit: CHEST PAIN Hospital Course Hospital Course As per Dr. Holli Salinas 80-year-old female who was admitted for management of acute onset of congestive heart failure, echo revealed EF 35%, cardiology was consulted, patient was deemed not a suitable candidate for angiogram considering her dementia, old age and family requested medical management as well. Patient does complain of left- sided chest discomfort on and off. She will be discharged home on evidence- based medication for heart failure with reduced action fraction, ischemic cardiomyopathy. Her EKG consistent with recent myocardial infarction. Q waves with T wave inversions noted. Her foot x-ray was done when bruising was noticed around left great toe which showed osteoarthritic changes no active fracture noted. Venous Dopplers without DVT, CTA ruled out PE. Clinically looks euvolemic, she will be given Lasix to be taken on as-needed basis every other day with potassium supplementation. Instructions given to hold medications if systolic blood pressure less than 100 mmHg. Family updated, they changed her CODE STATUS to DNR/DNI, and daughter were present in the room. (Sep ) Patient at baseline is bedbound due to debilitating arthritis, daughters try to help her out, she uses wheelchair for ambulation, assisted spoon feeding. All above information is accurate. Today is apr 06. Patient was accepted at a nursing facility and will be going there today. Physical Exam Narrative: EXAM NARRATIVE: Patient laying comfortably in her bed saturating well on room air Appears euvolemic Well oriented to time place and person Awake no neurological deficit Extremity contractures Right eye crusting noted Abdomen soft S1, S2 with systolic murmur Bilateral breath sounds without adventitious rhonchi or crackles Discharge Data Data Completed and Pending: Completed Studies During Hospitalization Category Date Time Status CT angio chest PE protcl [id number] Rout ine Cat Scan 03/29/21 06:[address] chest wo con 7 1250 Stat Cat Scan 03/28/21 20:07 Completed XR chest 1V flori ble [id number] Stat Exams 03/28/21 18:59 Completed XR foot LT 2V 736 20 Stat Exams 03/29/21 12:33 [place] [id number] Routin e Ultrasound 03/29/21 11:13 Completed CV. echo complete * [id number] Routine Ultrasound 03/29/21 00:23 Completed Pending at discharge Category Date Time Status Basic Metabolic P kam AM LABS Lab 04/06/21 04:00 Ordered Complete Blood Co unt w/Auto AM LABS Lab 04/06/21 04:00 Ordered Urine Culture Rou caron Lab 04/05/21 10:22 Received Labs from last 24 hours 04/05/21 10:22 Urine Color Yellow Urine Appearance Sl hazy Urine pH 7 Ur Specific Gravit y 1.000 L Urine Protein Neg Urine Glucose (UA) Norm Urine Ketones Negative Urine Blood Neg Urine Nitrate Negative Urine Bilirubin Neg Urine Urobilinogen Norm Ur Leukocyte Juanita ase 2+ H Urine RBC None Urine WBC 25-40 H Ur Squamous Epith Cells 5-10 H Amorphous Sediment Not Reportable Urine Bacteria Trace Urine Mucus Trace Vitals: Last Vital Signs Temp 98.0 F 04/05/21 20:00 Pulse 86 04/05/21 20:00 Resp 16 04/05/21 20:00 BP 131/72 04/05/21 20:00 Pulse Ox 97 04/05/21 20:00 Discharge Plan Discharge Patient Disposition: Home Condition: Stable Prescriptions: New aspirin 81 mg Tablet,Delayed Release (Dr/Ec) 81 mg PO DAILY Qty: 30 RF: 1 atorvastatin 40 mg Tablet 40 mg PO BEDTIME 30 Days Qty: 30 RF: 0 clopidogrel 75 mg Tablet 75 mg PO DAILY 30 Days Qty: 30 RF: 1 spironolactone 25 mg Tablet 25 mg PO DAILY 30 Days Qty: 30 RF: 0 metoprolol succinate 25 mg Tablet Extended Release 24 Hr 12.5 mg PO DAILY 30 Days Qty: 30 RF: 1 Nitrostat 0.4 mg tablet, sublingual 0.4 mg sublingual Q5M Qty: 7 RF: 0 Lasix 20 mg tablet 10 mg PO Q48H PRN (Reason: weight gain) Qty: 30 RF: 0 lisinopril 2.5 mg tablet 2.5 mg PO DAILY Qty: 30 RF: 0 Continued pramipexole 1 mg tablet 2 mg PO TID RF: 0 primidone 50 mg tablet 300 mg PO BEDTIME RF: 0 clonidine 0.2 mg/24 hr patch weekly 0.2 mg transdermal Q7D MDD see pharmacy comment RF: 0 carbidopa-levodopa 50-200 mg tablet extended release 1 tab PO BEDTIME RF: 0 chlorthalidone 25 mg tablet 25 mg PO DAILY RF: 0 amlodipine 5 mg tablet 5 mg PO DAILY RF: 0 entacapone 200 mg tablet 200 mg PO QID RF: 0 alprazolam 0.25 mg tablet 0.25 mg PO QID MDD SEE PHARMACY COMMENT PRN (Reason: Anxiety) RF: 0 methotrexate sodium 2.5 mg tablet 17.5 mg PO Q7D RF: 0 omeprazole 20 mg capsule,delayed release(DR/EC) 20 mg PO DAILY RF: 0 folic acid 1 mg tablet 1 mg PO DAILY RF: 0 carbidopa-levodopa 25-100 mg tablet 1.5 tab PO QID@08,10,12,16 MDD see pharmacy comment RF: 0 cholecalciferol (vitamin D3) [Vitamin D3] 25 mcg (1,000 unit) Tablet 25 mcg PO DAILY RF: 0 ferrous gluconate 324 mg (38 mg iron) tablet 324 mg PO DAILY RF: 0 Changed potassium chloride 10 mEq tablet extended release 10 meq PO Q48H 30 Days Qty: 0 RF: 0 Discharge Orders: Discharge Order (Routine); Ordered 03/31/21 Ordered By: Charlene Russo Referrals: Deyanira Worthington MD [Primary Care Provider] - 04/07/21 1:00 pm Discharge Diet: Cardiac Discharge Activity: Wheelchair as instructed Patient Instructions: Opioid Safety Activity Restrictions/Additional Instructions: Your chest pain is most likely related to your recent myocardial infarction. You will be prescribed aspirin, Plavix metoprolol succinate and atorvastatin for your heart tissue injury. If you notice systolic blood pressures less than 90 mmHg please do not take metoprolol succinate or other blood pressure medications. Your ejection fraction is 35% normal is around 55%. The new onset of congestive heart failure seems related to recent myocardial infarction. You can take Lasix on as-needed basis if shortness of breath gets worse or there is fluid weight gain more than 3 pounds in 1 day please hold Lasix if blood pressure stays soft with Lasix I am adding potassium to be taken on every other day basis Discharge Attestations Time Spent in Discharge Care*: less than 30 min Status at Discharge: Cognitive status at discharge: mildly impaired cognition , Behavioral status at discharge: cooperative , Functional status at discharge: bed bound Overall status at discharge: patient is back to baseline Coding Level of Care Code Acute [facility] note Diagnoses NSTEMI (non-ST elevated myocardial infarction) I21.4 Parkinsons disease G20 Hypertension I15.9 Hypertension type: unspecified secondary hypertension
[2021-04-06] VITALS: BP 128/69; PULSE 72; RESP 16; TEMP 36.6; O2SAT 98
[2021-04-06 04:00] VITALS: BP 131/62; PULSE 73; RESP 14; TEMP 37.1; O2SAT 98
[2021-04-06 05:28] LABS: Basophils % 0.5 %; Eosinophils % 0.8 %; Hematocrit 35.9 % (37.0-47.0); Hemoglobin 12.1 g/dL (11.5-15.3); Lymphocytes # 0.8 10^3/uL (0.8-4.8); Lymphocytes % 21.2 %; Mean Corpuscular HGB Conc 33.7 g/dL (30.0-36.0); Mean Corpuscular Hemoglobin 32.4 pg (28.0-34.0); Mean Platelet Volume 11.3 fL (7.4-10.4); Monocytes # 0.3 10^3/uL (0.2-0.9); Monocytes % 9.3 %; Neutrophils # 2.47 10^3/uL (1.8-7.7); Neutrophils % 67.9 %; Nucleated Red Blood Cells % 0 %; Platelet Count 124 10^3/cmm (130-400); Red Blood Count 3.74 10^6/uL (4.1-5.3); Red Cell Distribution Width 13.8 % (12.1-15.1); White Blood Count 3.6 10^3/uL (4.0-10.0)
[2021-04-06 05:43] LABS: Anion Gap 9.1 (5-19); Blood Urea Nitrogen 21 mg/dL (8-23); Calcium 8.5 mg/dL (8.5-10.5); Carbon Dioxide 28 mmol/L (22-29); Chloride 99 mmol/L (98-107); Glucose 98 mg/dL (65-115); Osmolality Calculated 277 mOsm/kg (285-295); Potassium 4.1 mmol/L (3.5-5.1); Sodium 132 mmol/L (136-145)
[2021-04-06 08:00] VITALS: BP 117/62; PULSE 80; RESP 16; TEMP 36.8; O2SAT 95
[2021-04-06] MEDS: enoxaparin 60 mg/0.6 mL Syringe 50 MG SUBCUT (08:14)
[2021-04-06] MEDS: spironolactone 25 mg Tablet PO (08:15)
[2021-04-06] MEDS: clopidogrel 75 mg Tablet PO (08:15)
[2021-04-06] MEDS: FUROsemide 20 mg Tablet PO (08:15)
[2021-04-06] MEDS: pramipexole 0.25 mg Tablet 2 MG PO (08:15)
[2021-04-06] MEDS: amlodipine 5 mg Tablet 2.5 MG PO (08:16)
[2021-04-06] MEDS: carbidopa-levodopa 25-100mg Tablet 1.5 EACH PO ×3 (08:16→13:02)
[2021-04-06] MEDS: metoprolol succinate ER (24 HR) 25 mg Tablet 12.5 MG PO (08:17)
[2021-04-06] MEDS: potassium chloride ER 10 mEq Tablet PO (08:21)
[2021-04-06] MEDS: aspirin 81 mg EC Tablet PO (08:21)
--- NOTE | 2021-04-06 10:45 | PM.DCS ---
Discharge Providers Date of Admission: 03/29/21 00:27 Date of Discharge: April 06, 2021 Attending Provider at Admission: Holli Salinas MD Attending Provider at Discharge: Marina Morgan MD Primary Care Provider: Deyanira Worthington MD Diagnoses at Discharge Discharge Diagnosis (1) NSTEMI (non-ST elevated myocardial infarction): Status: Acute (2) Parkinsons disease: Status: Acute (3) Hypertension: Status: Acute Qualifiers: Hypertension type: unspecified secondary hypertension Qualified Code(s): I15.9 - Secondary hypertension, unspecified (4) Recent myocardial infarction of anterior wall: Status: Acute Reason for Visit Reason for Visit: CHEST PAIN Hospital Course Hospital Course As per Dr. Holli Salinas 80-year-old female who was admitted for management of acute onset of congestive heart failure, echo revealed EF 35%, cardiology was consulted, patient was deemed not a suitable candidate for angiogram considering her dementia, old age and family requested medical management as well. Patient does complain of left-sided chest discomfort on and off. She will be discharged home on evidence-based medication for heart failure with reduced action fraction, ischemic cardiomyopathy. Her EKG consistent with recent myocardial infarction. Q waves with T wave inversions noted. Her foot x-ray was done when bruising was noticed around left great toe which showed osteoarthritic changes no active fracture noted. Venous Dopplers without DVT, CTA ruled out PE. Clinically looks euvolemic, she will be given Lasix to be taken on as-needed basis every other day with potassium supplementation. Instructions given to hold medications if systolic blood pressure less than 100 mmHg. Family updated, they changed her CODE STATUS to DNR/DNI, and daughter were present in the room. (Sep 23) Patient at baseline is bedbound due to debilitating arthritis, daughters try to help her out, she uses wheelchair for ambulation, assisted spoon feeding. All above information is accurate. Today is sep . Patient was accepted at a nursing facility and will be going there today. Physical Exam Narrative: EXAM NARRATIVE: Patient laying comfortably in her bed saturating well on room air Appears euvolemic Well oriented to time place and person Awake no neurological deficit Extremity contractures Right eye crusting noted Abdomen soft S1, S2 with systolic murmur Bilateral breath sounds without adventitious rhonchi or crackles Discharge Data Data Completed and Pending: Completed Studies During Hospitalization Category Date Time Status CT angio chest PE protcl [id number] Rout ine Cat Scan 03/29/21 06:[address] chest wo con 7 1250 Stat Cat Scan 03/28/21 20:07 Completed XR chest 1V flori ble [id number] Stat Exams 03/28/21 18:59 Completed XR foot LT 2V 736 20 Stat Exams 03/29/21 12:33 [place] [id number] Routin e Ultrasound 03/29/21 11:13 Completed CV. echo complete * [id number] Routine Ultrasound 03/29/21 00:23 Completed Pending at discharge Category Date Time Status Urine Culture Rou caron Lab 04/05/21 10:22 Results Labs from last 24 hours 04/06/21 04/06/21 05:15 05:15 WBC 3.6 L RBC 3.74 L Hgb 12.1 Hct 35.9 L MCV 96.0 MCH 32.4 MCHC 33.7 RDW 13.8 Plt Count 124 L MPV 11.3 H Neut % (Auto) 67.9 Lymph % (Auto) 21.2 Sunflower % (Auto) 9.3 Eos % (Auto) 0.8 Baso % (Auto) 0.5 Neut # (Auto) 2.47 Lymph # (Auto) 0.8 Sunflower # (Auto) 0.3 Eos # (Auto) 0.0 Baso # (Auto) 0.0 Nucleated RBC % (a uto) 0 Nucleated RBCs # 0.0 Sodium 132 L Potassium 4.1 Chloride 99 Carbon Dioxide 28 Anion Gap 9.1 BUN 21 Creatinine 0.6 GFR Calculation Not Reportable Glucose 98 Calculated Osmolal ity 277 L Calcium 8.5 Vitals: Last Vital Signs Temp 98.2 F 04/06/21 08:00 Pulse 80 04/06/21 08:00 Resp 16 04/06/21 08:00 BP 117/62 04/06/21 08:00 Pulse Ox 95 04/06/21 08:00 Discharge Plan Discharge Patient Disposition: Xfer SNF Condition: Stable Prescriptions: New aspirin 81 mg Tablet,Delayed Release (Dr/Ec) 81 mg PO DAILY Qty: 30 RF: 1 atorvastatin 40 mg Tablet 40 mg PO BEDTIME 30 Days Qty: 30 RF: 0 clopidogrel 75 mg Tablet 75 mg PO DAILY 30 Days Qty: 30 RF: 1 spironolactone 25 mg Tablet 25 mg PO DAILY 30 Days Qty: 30 RF: 0 metoprolol succinate 25 mg Tablet Extended Release 24 Hr 12.5 mg PO DAILY 30 Days Qty: 30 RF: 1 Nitrostat 0.4 mg tablet, sublingual 0.4 mg sublingual Q5M Qty: 7 RF: 0 Lasix 20 mg tablet 10 mg PO Q48H PRN (Reason: weight gain) Qty: 30 RF: 0 lisinopril 2.5 mg tablet 2.5 mg PO DAILY Qty: 30 RF: 0 Continued pramipexole 1 mg tablet 2 mg PO TID RF: 0 primidone 50 mg tablet 300 mg PO BEDTIME RF: 0 clonidine 0.2 mg/24 hr patch weekly 0.2 mg transdermal Q7D MDD see pharmacy comment RF: 0 carbidopa-levodopa 50-200 mg tablet extended release 1 tab PO BEDTIME RF: 0 chlorthalidone 25 mg tablet 25 mg PO DAILY RF: 0 amlodipine 5 mg tablet 5 mg PO DAILY RF: 0 entacapone 200 mg tablet 200 mg PO QID RF: 0 alprazolam 0.25 mg tablet 0.25 mg PO QID MDD SEE PHARMACY COMMENT PRN (Reason: Anxiety) RF: 0 methotrexate sodium 2.5 mg tablet 17.5 mg PO Q7D RF: 0 omeprazole 20 mg capsule,delayed release(DR/EC) 20 mg PO DAILY RF: 0 folic acid 1 mg tablet 1 mg PO DAILY RF: 0 carbidopa-levodopa 25-100 mg tablet 1.5 tab PO QID@08,10,12,16 MDD see pharmacy comment RF: 0 cholecalciferol (vitamin D3) [Vitamin D3] 25 mcg (1,000 unit) Tablet 25 mcg PO DAILY RF: 0 ferrous gluconate 324 mg (38 mg iron) tablet 324 mg PO DAILY RF: 0 Changed potassium chloride 10 mEq tablet extended release 10 meq PO Q48H 30 Days Qty: 0 RF: 0 Discharge Orders: Discharge Order (Routine); Ordered 03/31/21 Ordered By: Charlene Russo Other Ambulatory Orders: Complete Blood Count w/Auto (Routine) Timeframe: 1 Week Location: Determined by Patient Ordered By: Marina Morgan Referrals: Deyanira Worthington MD [Primary Care Provider] - 04/07/21 1:00 pm Discharge Diet: Cardiac Discharge Activity: Wheelchair as instructed Activity Restrictions/Additional Instructions: Your chest pain is most likely related to your recent myocardial infarction. You will be prescribed aspirin, Plavix metoprolol succinate and atorvastatin for your heart tissue injury. If you notice systolic blood pressures less than 90 mmHg please do not take metoprolol succinate or other blood pressure medications. Your ejection fraction is 35% normal is around 55%. The new onset of congestive heart failure seems related to recent myocardial infarction. You can take Lasix on as-needed basis if shortness of breath gets worse or there is fluid weight gain more than 3 pounds in 1 day please hold Lasix if blood pressure stays soft with Lasix I am adding potassium to be taken on every other day basis Discharge Attestations Time Spent in Discharge Care*: less than 30 min Status at Discharge: Cognitive status at discharge: mildly impaired cognition, Behavioral status at discharge: cooperative, Functional status at discharge: bed bound Overall status at discharge: patient is back to baseline Quality Metrics Clinical Quality Measures During this hospital stay, did patient experience: None Coding Level of Care Code Acute [facility] note Diagnoses NSTEMI (non-ST elevated myocardial infarction) I21.4 Parkinsons disease G20 Hypertension I15.9 Hypertension type: unspecified secondary hypertension Recent myocardial infarction of anterior wall
[2021-04-06] MEDS: acetaminophen 325 mg Tablet 650 MG PO (11:46)
[2021-04-06 11:59] VITALS: BP 107/61; PULSE 74; RESP 16; TEMP 36.9; O2SAT 94
[2021-04-06 15:02] VITALS: BP 107/61; PULSE 74; RESP 16; TEMP 36.9; O2SAT 94
--- NOTE | 2021-04-07 09:18 | PC.SOCIAL ---
discharge follow up call made, spoke with pts nurse, Vaishali at [facility]. She reports pt is confused, per pt normal but doing well. The facility was able to get all ordered medications for patient. Patient hasn't complained of any chest pain. No questions or concerns were voiced by patients nurse.
== END 2021-04-06 13:45 | disposition skilled nursing facility (03) | DRG 291 ==
LOC: ER 21:03 → CSU 21:44 → MEDSURG 03-30 21:48
PROVIDERS: Emergency Medicine; Internal Medicine; Admitting Provider Student in an Organized Health Care Education/Training Program; Emergency Provider Emergency Medicine; PCP Family Medicine; Visit Provider Internal Medicine
DX: I11.0 Hypertensive heart disease with heart failure (principal); I50.21 Acute systolic (congestive) heart failure; G20 Parkinson's disease; F02.80 Dementia in other diseases classified elsewhere, unspecified severity, without behavioral disturbance, psychotic disturbance, mood disturbance, and anxiety; M06.9 Rheumatoid arthritis, unspecified; Z74.01 Bed confinement status; I25.5 Ischemic cardiomyopathy; Z66 Do not resuscitate; E87.6 Hypokalemia; I25.2 Old myocardial infarction
CPT/HCPCS: 36415; 51702; 71045; 71250; 71275; 73620; 80048; 80053; 81001; 83880; 84443; 84484; 84550; 85025; 85378; 87086; 87635; 93005; 93306; 93970; 96372; 96374; 97162; 97530; 99285; J1650; J1940; Q9967

== ENCOUNTER 2021-04-20 11:14 | Observation (INO) | payer MEDICARE, SELFPAY ==
[2021-04-20] VITALS (7 sets, daily range): BP systolic 113–129; BP diastolic 54–68; PULSE 67–78; RESP 7–16; TEMP 36.5; O2SAT 96–100; BMI 17.4; BMI 18.9
--- NOTE | 2021-04-20 11:22 | CT_ITS ---
WS: [id number] CT HEAD NONCONTRAST HISTORY: Confusion TECHNIQUE: Contiguous axial imaging performed through the brain in 2.5 mm imaging. Bone and soft tiss ue windows. Sagittal and coronal reformats reviewed. All CT scans at [place] use at least one of these dose optimization techniques: automated exposure control; mA and/or kV adjustment per pa tient size (includes targeted exams where dose is matched to clinical indication); or iterative recon struction. DLP: 1527.62 mGy.cm COMPARISON: None available. No acute intracranial hemorrhage, midline shift or mass effect. Mild atrophy and mild chronic microvascular ischemic disease. Small infarct in the LEFT caudate head and anterior limb LEFT internal capsule. Ventricles: Normal size with no hydrocephalus. No inferior displacement of the cerebellar tonsils. Paranasal sinuses: As visualized are clear. Mastoid air cells: Well pneumatized. Calvarium and scalp: Skull is intact with no soft tissue edema or swelling. Extensive atherosclerotic plaque within the intracranial carotid arteries the cavernous sinuses. CT/CT head wo con* [id number] IMPRESSION: 1. No acute intracranial hemorrhage or edema. 2. 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 3. Extensive atherosclerosis intracranial carotid arteries.
--- NOTE | 2021-04-20 11:22 | XR_ITS ---
WS: [id number] XR chest 1V portable [id number] REASON FOR EXAM: Cough FINDINGS: Significant tortuosity and ectasia of the thoracic aorta with mild dilatation of the ascending aorta. Mild cardiomegaly. Calcified granulomatous disease in both hemithoraces. No active pulmonary parenchymal pleural disease. Degenerative changes in the mid and lower thoracic spine. XR/XR chest 1V portable [id number] IMPRESSION: No acute chest abnormality.
--- NOTE | 2021-04-20 11:22 | XR_ITS ---
WS: [id number] XR hip LT 2-3V wo/w pel* [id number] REASON FOR EXAM: Injury FINDINGS: Significantly decreased bone density. Changes of osteoarthropathy in the left hip with joint space narrowing and acetabular subchondral sc lerosis and small osteophyte formation. Subtle offset of the cortical margin of the femoral neck/head. No fracture of the left superior or inferior pubic ramus. XR/XR hip LT 2-3V wo/w pel* [id number] IMPRESSION: Subtle abnormality in the left hip as above. Potentially this could represent a n incomplete left femoral neck/head fracture. As clinically warranted a CT scan of the pelvis should be definitive. (Recommend pelvis so comparison can be mad e to normal side).
--- NOTE | 2021-04-20 11:23 | ED_ITS ---
HPI - General Adult General: Chief complaint: Fall Stated complaint: FALL 2 DAYS AGO Time Seen by Provider: 04/20/21 11:18 History of Present Illness: HPI narrative: This patient is an 80-year-old female who presents to the emergency department via EMS from a local nursing facility for concerns of confusion. Patient also had a complaint of left hip pain. Patient reportedly had a fall 2 days ago. And has been doing well patient normally walks and talks in is appropriate. But this morning the patient has been combative somewhat confused and striking and lashing out at staff. Patient is guarding her left hip. Patient was given Xanax prior to EMS transport. However patient does take him Xanax daily. Patient does converse and speak with daughter. Patient appears to be guarding her left hip but does move all extremities spontaneously. Will do medical evaluation treat as needed Associated symptoms: Reports confusion; Deny chest pain, dyspnea, headache(s), nausea, rash, palpitations or vomiting Review of Systems General: Reports: 10 or more systems reviewed and unremarkable except in HPI and below Const: Denies: fever(s), chills, body aches or fatigue Eyes: Denies: change in vision or blurry vision ENMT: Denies: throat pain, hoarseness or mouth pain Card: Denies: chest pain, palpitations, irregular heart rhythm, edema, swelling of feet/ankles or lightheadedness Resp: Denies: dyspnea, productive cough, non-productive cough, wheezing or pain on inspiration GI: Denies: abdominal pain, nausea or vomiting : Denies: flank pain, difficulty voiding, dysuria, urinary frequency, urinary urgency or urinary hesitancy Musc: Reports: extremity pain and joint pain; Denies: neck pain, back pain, extremity swelling, joint swelling, joint redness, joint warmth or limited range of motion Skin/Breast: Denies: rash, pruritus, erythema or skin tenderness Neuro: Reports: difficulty walking and confusion; Denies: headache(s), numbness in extremities or weakness in extremities Psych: Denies: anxiety or depression PFS ED PFSH: Medical History Hypertension Parkinsons disease Physical Exam Const: COMMON NORMALS: no acute distress, average body habitus, no limitations, healthy appearing, alert and well nourished ORIENTATION/CONSCIOUSNESS: Yes oriented to person HENMT: COMMON NORMALS: normocephalic, atraumatic, hearing grossly normal bilaterally, external ears normal, EAC's normal, TM's normal bilaterally, Normal external nose present, Normal nasal mucous membranes and turbinates present, moist oral mucous membranes, oropharynx normal, dentition normal and gingiva normal HEAD & SCALP: normocephalic and atraumatic NOSE: Normal external nose present and Normal nasal mucous membranes and turbinates present EXTERNAL EAR: Yes external ears normal EXTERNAL AUDITORY CANAL: EAC's normal TYMPANIC MEMBRANE: TM's normal bilaterally Neck/C-Spine: COMMON NORMALS: full ROM, no lymphadenopathy, supple, no meningeal signs, no JVD, Thyroid normal and No carotid bruits THYROID: Thyroid normal Chest: COMMONS NORMALS: normal inspection of the chest, normal palpation of entire chest wall, normal inspection of the breasts and normal palpation of the breasts Breast/axilla inspection: Yes normal inspection of the breasts BREAST/AXILLA PALPATION: Yes normal palpation of the breasts Resp: COMMON NORMALS: normal respiratory effort, No retractions, No use of accessory muscles, clear to auscultation bilaterally and percussion normal AUSCULTATION: clear to auscultation bilaterally PERCUSSION: percussion normal Cardio: COMMON NORMALS: no JVD, regular rate, regular rhythm, S1 normal heart sound present, S2 normal heart sound present, No gallops present (Cardio), No clicks present (Cardio), No murmurs present (Cardio), No rub (Cardio) and Peripheral pulses 2+ throughout RATE: regular rate RHYTHM: regular rhythm HEART SOUNDS: S1 normal heart sound present and S2 normal heart sound present PERIPHERAL PULSES: Peripheral pulses 2+ throughout GI: COMMON NORMALS: Normal to inspection, nondistended, normoactive bowel sounds present, Soft to palpation, non-tender, No hepatosplenomegaly present, no masses and no bruits PALPATION: Yes Soft to palpation and Yes No hepatosplenomegaly present Back/Pelvis: COMMON NORMALS: thoracic and lumbar spine normal to inspection, no thoracic nor lumbar tenderness, thoraco-lumbar ROM normal and straight leg raise negative bilaterally Extremity: COMMON NORMALS: normal to inspection, full ROM, capillary refill normal, no joint enlargement, no clubbing, cyanosis or edema, no calf tenderness and no pedal edema Neuro: COMMON NORMALS: CN's II-XII intact bilaterally and moves all extremities SENSORIUM/ORIENTATION: Yes alert and Yes oriented to person MENINGEAL SIGNS: Yes no meningeal signs Course Reevaluation(s): Reevaluation #1: Negative evaluation in the emergency department for any acute fractures. Patient only has mild soft tissue swelling to the left hip. Patient's mental status is chronic confusion due to dementia. Family member at the bedside states that this is her normal state of being. Patient has been medicated per long term prior to transfer to the ER. But patient does not appear to be in acute distress at this time. No other significant findings on labs patient be discharged back home. Patient did receive 1 g of Rocephin due to concerns of possible UTI. Patient does appear to have concerns for non-STEMI. Time: 13:39 Consultations: Consultation #1: I did discuss at length with cardiology Dr. Cordero he does not believe this EKG is acute. He recommends we trend troponins. Time: 12:56 Consultation #2: I discussed at length with Dr. Chavez cardiology. Patient's 1st troponin is 127. He agrees with patient be admitted to the hospitalist service for non-STEMI. He will monitor patient as needed. Time: 14:13 Consultation #3: I did speak with Dr. Yusuf. He agrees admit the patient for further observation evaluation. Time: 14:24 Vital Signs: Vital signs: Vital Signs Temperature 97.7 F 04/20/21 11:21 Pulse Rate 68 04/20/21 12:54 Respiratory Rate 16 04/20/21 11:21 Blood Pressure 113/54 04/20/21 11:31 Pulse Oximetry 100 04/20/21 12:54 MDM - General Adult MDM Narrative: Medical decision making narrative: This patient is an 80-year-old female who presents to the emergency department via EMS from a local nursing facility for concerns of confusion. Patient also had a complaint of left hip pain. Patient reportedly had a fall 2 days ago. And has been doing well patient normally walks and talks in is appropriate. But this morning the patient has been combative somewhat confused and striking and lashing out at staff. Patient is guarding her left hip. Patient was given Xanax prior to EMS transport. However patient does take him Xanax daily. Patient does converse and speak with daughter. Patient appears to be guarding her left hip but does move all extremities spontaneously. Will do medical evaluation treat as needed Negative evaluation in the emergency department for any acute fractures. Patient only has mild soft tissue swelling to the left hip. Patient's mental status is chronic confusion due to dementia. Family member at the bedside states that this is her normal state of being. Patient has been medicated per long term prior to transfer to the ER. But patient does not appear to be in acute distress at this time. No other significant findings on labs patient be discharged back home. Patient did receive 1 g of Rocephin due to concerns of possible UTI. Patient does appear to have concerns for non-STEMI. I did speak with Dr. Yusuf. He agrees admit the patient for further observation evaluation. I discussed at length with Dr. Chavez cardiology. Patient's 1st troponin is 127. He agrees with patient be admitted to the hospitalist service for non- STEMI. He will monitor patient as needed. Lab Data: Labs: Lab Results 04/20/21 04/20/21 04/20/21 11:58 11:58 11:58 WBC 3.7 10^3/uL L 10^ 3/uL (4.0-10.0) RBC 3.39 10^6/uL L 10 ^6/uL (4.1-5.3) Hgb 10.7 g/dL L g/dL (11.5-15.3) Hct 31.7 % L % (37.0-47.0) MCV 93.5 fl fl (81-99) MCH 31.6 pg pg (28.0-34.0) MCHC 33.8 g/dL g/dL (30.0-36.0) RDW 13.7 % % (12.1-15.1) Plt Count 135 10^3/cmm 10^3 /cmm (130-400) MPV 11.0 fL H fL (7.4-10.4) Neut % (Auto) 66.4 % % Lymph % (Auto) 22.5 % % [place] % (Auto) 9.4 % % Eos % (Auto) 1.1 % % Baso % (Auto) 0.3 % % Neut # (Auto) 2.49 10^3/uL 10^3 /uL (1.8-7.7) Lymph # (Auto) 0.8 10^3/uL 10^3/ uL (0.8-4.8) [place] # (Auto) 0.4 10^3/uL 10^3/ uL (0.2-0.9) Eos # (Auto) 0.0 10^3/uL 10^3/ uL (0.0-0.8) Baso # (Auto) 0.0 10^3/uL 10^3/ uL (0.0-0.1) Nucleated RBC % (a uto) 0 % % Nucleated RBCs # 0.0 /100WBC /100W BC PT 13.50 SECONDS SEC ONDS (12.1-14.9) INR 1.00 (0.8-1.2) APTT 23.3 SECONDS L SE CONDS (23.9-36.7) Sodium 137 mmol/L mmol/L (136-145) Potassium 3.8 mmol/L mmol/L (3.5-5.1) Chloride 102 mmol/L mmol/L (98-107) Carbon Dioxide 30 mmol/L H mmol/ L (22-29) Anion Gap 8.8 (5-19) BUN 17 mg/dL mg/dL (8-23) Creatinine 0.6 mg/dL mg/dL (0.5-0.9) GFR Calculation Not Reportable Glucose 100 mg/dL mg/dL (65-115) Calculated Osmolal ity 286 mOsm/kg mOsm/ kg (285-295) Calcium 8.4 mg/dL L mg/dL (8.5-10.5) Total Bilirubin 0.2 mg/dL mg/dL (0.15-1.2) AST 18 U/L U/L (0-32) ALT < 5 U/L U/L (0-33) Alkaline Phosphata se 51 IU/L IU/L (35-105) Ammonia Troponin T Baselin e Total Protein 4.7 g/dL L g/dL (6.6-8.7) Albumin 3.0 g/dL L g/dL (3.5-5.2) Globulin 1.7 g/dL g/dL (1.3-4.6) Urine Color Urine Appearance Urine pH Ur Specific Gravit y Urine Protein Urine Glucose (UA) Urine Ketones Urine Blood Urine Nitrate Urine Bilirubin Prot Sulfosalicyli c Acd Urine Urobilinogen Ur Leukocyte Juanita ase Urine RBC Urine WBC Ur Squamous Epith Cells Triple Phos Omayra ls Amorphous Sediment Urine Bacteria Urine Opiates Scre en Ur Barbiturates Sc reen Ur Phencyclidine S crn Ur Amphetamines Sc reen U Benzodiazepines Scrn Urine Cocaine Scre en U Marijuana (THC) Screen 04/20/21 04/20/21 04/20/21 11:58 11:58 12:33 WBC RBC Hgb Hct MCV MCH MCHC RDW Plt Count MPV Neut % (Auto) Lymph % (Auto) [place] % (Auto) Eos % (Auto) Baso % (Auto) Neut # (Auto) Lymph # (Auto) [place] # (Auto) Eos # (Auto) Baso # (Auto) Nucleated RBC % (a uto) Nucleated RBCs # PT INR APTT Sodium Potassium Chloride Carbon Dioxide Anion Gap BUN Creatinine GFR Calculation Glucose Calculated Osmolal ity Calcium Total Bilirubin AST ALT Alkaline Phosphata se Ammonia 24 umol/L umol/L (11-51) Troponin T Baselin e 127 ng/L H* ng/L (0-10) Total Protein Albumin Globulin Urine Color [place] (Yellow) Urine Appearance Cloudy (CLEAR) Urine pH 9 H (5-7) Ur Specific Gravit y 1.015 (1.005-1.030) Urine Protein Trace (Negative) Urine Glucose (UA) Norm (Normal) Urine Ketones Negative (Negative) Urine Blood 2+ H (Negative) Urine Nitrate Negative (Negative) Urine Bilirubin Neg (Negative) Prot Sulfosalicyli c Acd Negative (Negative) Urine Urobilinogen Norm mg/dL mg/dL (Negative) Ur Leukocyte Juanita ase 1+ H (Negative) Urine RBC 0-4 /hpf H /hpf (0-2) Urine WBC 5-10 /hpf H /hpf (0-5) Ur Squamous Epith Cells None /hpf /hpf (0-5) Triple Phos Omayra ls 0-4 /hpf H /hpf Amorphous Sediment 4+ /hpf /hpf Urine Bacteria Trace /hpf /hpf (NONE) Urine Opiates Scre en Ur Barbiturates Sc reen Ur Phencyclidine S crn Ur Amphetamines Sc reen U Benzodiazepines Scrn Urine Cocaine Scre en U Marijuana (THC) Screen 04/20/21 12:33 WBC RBC Hgb Hct MCV MCH MCHC RDW Plt Count MPV Neut % (Auto) Lymph % (Auto) [place] % (Auto) Eos % (Auto) Baso % (Auto) Neut # (Auto) Lymph # (Auto) [place] # (Auto) Eos # (Auto) Baso # (Auto) Nucleated RBC % (a uto) Nucleated RBCs # PT INR APTT Sodium Potassium Chloride Carbon Dioxide Anion Gap BUN Creatinine GFR Calculation Glucose Calculated Osmolal ity Calcium Total Bilirubin AST ALT Alkaline Phosphata se Ammonia Troponin T Baselin e Total Protein Albumin Globulin Urine Color Urine Appearance Urine pH Ur Specific Gravit y Urine Protein Urine Glucose (UA) Urine Ketones Urine Blood Urine Nitrate Urine Bilirubin Prot Sulfosalicyli c Acd Urine Urobilinogen Ur Leukocyte Juanita ase Urine RBC Urine WBC Ur Squamous Epith Cells Triple Phos Omayra ls Amorphous Sediment Urine Bacteria Urine Opiates Scre en Negative ng/mL ng /mL (Negative) Ur Barbiturates Sc reen Positive ng/mL H ng/mL (Negative) Ur Phencyclidine S crn Negative ng/mL ng /mL (Negative) Ur Amphetamines Sc reen Negative ng/mL ng /mL (Negative) U Benzodiazepines Scrn Positive ng/mL H ng/mL (Negative) Urine Cocaine Scre en Negative ng/mL ng /mL (Negative) U Marijuana (THC) Screen Negative ng/mL ng /mL (Negative) Imaging Data^: Xray Ortho: Attestation: I personally reviewed and interpreted this imaging study as follows: Radiologist's impression: IMPRESSION: Subtle abnormality in the left hip as above. Potentially this could represent an incomplete left femoral neck/head fracture. As clinically warranted a CT scan of the pelvis should be definitive. (Recommend pelvis so comparison can be made to normal side). CXR: Attestation: I personally reviewed and interpreted this imaging study as follows: Radiologist's impression: No acute findings CT Head: Attestation: I personally reviewed and interpreted this imaging study as follows: Radiologist's impression: IMPRESSION: 1. No acute intracranial hemorrhage or edema. 2. 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 3. Extensive atherosclerosis intracranial carotid arteries. EKG Data^: EKG 1: Attestation: I personally reviewed and interpreted this EKG as follows: EKG interpretation date: 04/20/21 EKG interpretation time: 12:38 Prior EKG tracings: available for review Interpretation: Sinus rhythm with possible left atrial enlargement. Heart rate 65. Nonspecific EKG changes. Computer generated interpretation: Chest X-Ray 04/20/21 11:22 IMPRESSION: No acute chest abnormality. Head CT 04/20/21 11:22 IMPRESSION: 1. No acute intracranial hemorrhage or edema. 2. 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 3. Extensive atherosclerosis intracranial carotid arteries. Hip/Pelvis X-Ray 04/20/21 11:22 IMPRESSION: Subtle abnormality in the left hip as above. Potentially this could represent an incomplete left femoral neck/head fracture. As clinically warranted a CT scan of the pelvis should be definitive. (Recommend pelvis so comparison can be made to normal side). Hip CT 04/20/21 12:26 IMPRESSION: 1. No acute LEFT hip fracture. 2. Fibroid uterus. 3. Mild soft tissue edema surrounding the LEFT hip. Discharge Plan Discharge Patient Disposition: Placed in Observation Clinical Impression: Contusion of hip, History of fall, Acute UTI, Dementia, Non-ST elevation UT (NSTEMI), Elevated troponin Condition: Stable Prescriptions: No Action pramipexole 1 mg tablet 2 mg PO TID RF: 0 primidone 50 mg tablet 300 mg PO BEDTIME RF: 0 clonidine 0.2 mg/24 hr patch weekly 0.2 mg transdermal Q7D MDD see pharmacy comment RF: 0 carbidopa-levodopa 50-200 mg tablet extended release 1 tab PO BEDTIME RF: 0 chlorthalidone 25 mg tablet 25 mg PO DAILY RF: 0 amlodipine 5 mg tablet 5 mg PO DAILY RF: 0 entacapone 200 mg tablet 200 mg PO QID RF: 0 alprazolam 0.25 mg tablet 0.25 mg PO QID MDD SEE PHARMACY COMMENT PRN (Reason: Anxiety) RF: 0 methotrexate sodium 2.5 mg tablet 17.5 mg PO Q7D RF: 0 omeprazole 20 mg capsule,delayed release(DR/EC) 20 mg PO DAILY RF: 0 folic acid 1 mg tablet 1 mg PO DAILY RF: 0 carbidopa-levodopa 25-100 mg tablet 1.5 tab PO QID@08,10,12,16 MDD see pharmacy comment RF: 0 cholecalciferol (vitamin D3) [Vitamin D3] 25 mcg (1,000 unit) Tablet 25 mcg PO DAILY RF: 0 ferrous gluconate 324 mg (38 mg iron) tablet 324 mg PO DAILY RF: 0 aspirin 81 mg Tablet,Delayed Release (Dr/Ec) 81 mg PO DAILY Qty: 30 RF: 1 atorvastatin 40 mg Tablet 40 mg PO BEDTIME 30 Days Qty: 30 RF: 0 clopidogrel 75 mg Tablet 75 mg PO DAILY 30 Days Qty: 30 RF: 1 spironolactone 25 mg Tablet 25 mg PO DAILY 30 Days Qty: 30 RF: 0 metoprolol succinate 25 mg Tablet Extended Release 24 Hr 12.5 mg PO DAILY 30 Days Qty: 30 RF: 1 Nitrostat 0.4 mg tablet, sublingual 0.4 mg sublingual Q5M Qty: 7 RF: 0 Lasix 20 mg tablet 10 mg PO Q48H PRN (Reason: weight gain) Qty: 30 RF: 0 potassium chloride 10 mEq tablet extended release 10 meq PO Q48H 30 Days Qty: 0 RF: 0 lisinopril 2.5 mg tablet 2.5 mg PO DAILY Qty: 30 RF: 0 Referrals: Deyanira Worthington MD [Primary Care Provider] - Coding Level of Care Code ED 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
[2021-04-20 12:20] LABS: Basophils % 0.3 %; Eosinophils % 1.1 %; Hematocrit 31.7 % (37.0-47.0); Hemoglobin 10.7 g/dL (11.5-15.3); Lymphocytes # 0.8 10^3/uL (0.8-4.8); Lymphocytes % 22.5 %; Mean Corpuscular HGB Conc 33.8 g/dL (30.0-36.0); Mean Corpuscular Hemoglobin 31.6 pg (28.0-34.0); Mean Corpuscular Volume 93.5 fl (81-99); Monocytes # 0.4 10^3/uL (0.2-0.9); Monocytes % 9.4 %; Neutrophils # 2.49 10^3/uL (1.8-7.7); Neutrophils % 66.4 %; Nucleated Red Blood Cells % 0 %; Platelet Count 135 10^3/cmm (130-400); Red Blood Count 3.39 10^6/uL (4.1-5.3); Red Cell Distribution Width 13.7 % (12.1-15.1); White Blood Count 3.7 10^3/uL (4.0-10.0)
--- NOTE | 2021-04-20 12:26 | CT_ITS ---
WS: [id number] CT LEFT HIP, NONCONTRAST. HISTORY: LEFT hip fracture. Technique: All CT scans at [facility] use at least one of these dose optimization techniques: automated exposure control; mA and/or kV adjustment per patient size (includes targeted exams where dose is matched to clinical indication); or iterative reconstruction. DLP: 217.37 mGy.cm COMPARISON: Radiograph 04/20/2021 No acute hip fracture. Femoral head is normally seated at the acetabulum with only mild joint space n arrowing. LEFT pubic rami intact. Mild soft tissue edema surrounding the hip. No focal contusion or hematoma. Femoral artery atheroscle rosis. Jefferson catheter in the urinary bladder. Calcified uterus. CT/CT hip LT wo con* [id number] IMPRESSION: 1. No acute LEFT hip fracture. 2. Fibroid uterus. 3. Mild soft tissue edema surrounding the LEFT hip.
[2021-04-20 12:33] LABS: Partial Thromboplastin Time 23.3 SECONDS (23.9-36.7)
[2021-04-20] MEDS: sodium chloride 0.9% 500 ML IV (12:39)
[2021-04-20 12:49] LABS: Alanine Aminotransferase < 5 U/L (0-33); Alkaline Phosphatase 51 IU/L (35-105); Anion Gap 8.8 (5-19); Aspartate Amino Transferase 18 U/L (0-32); Blood Urea Nitrogen 17 mg/dL (8-23); Calcium 8.4 mg/dL (8.5-10.5); Carbon Dioxide 30 mmol/L (22-29); Chloride 102 mmol/L (98-107); Globulin 1.7 g/dL (1.3-4.6); Glucose 100 mg/dL (65-115); Osmolality Calculated 286 mOsm/kg (285-295); Potassium 3.8 mmol/L (3.5-5.1); Sodium 137 mmol/L (136-145); Total Bilirubin 0.2 mg/dL (0.15-1.2); Total Protein 4.7 g/dL (6.6-8.7)
--- NOTE | 2021-04-20 12:55 | PC.NURSE ---
EKG PERFORMED BY THIS NURSE.
--- NOTE | 2021-04-20 12:56 | ECG_ITS ---
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 Measurements Intervals [place] Rate: 65 P: 144 IL: 167 QRS: -7 QRSD: 93 T: 258 QT: 438 QTc: 456 Interpretive Statements SINUS RHYTHM POSSIBLE LEFT ATRIAL ENLARGEMENT [-0.1mV P-WAVE IN V1/V2] LEFT VENTRICULAR HYPERTROPHY AND ST-T CHANGE [VOLTAGE CRITERIA PLUS ST/T ABNORMALITY] ANTEROSEPTAL MYOCARDIAL INFARCTION , PROBABLY RECENT [40+ ms Q WAVE IN V1-V4] ACUTE VA Compared to ECG 03/29/2021 03:49:17 Left ventricular hypertrophy now present ST (T wave) deviation now present T-wave abnormality no longer present Possible ischemia no longer present Myocardial infarct finding still present Electronically Signed On 04-20-2021 20:00:14 CDT by Berenice Summers M.D. [id number]
[2021-04-20 13:06] LABS: Ammonia 24 umol/L (11-51)
[2021-04-20 13:16] LABS: Add Urine Microscopic? YES; Bilirubin Urine Neg (Negative); Blood Urine 2+ (Negative); Glucose Urine UA Norm (Normal); Ketones Urine Negative (Negative); Leukocyte Esterase Urine 1+ (Negative); Nitrate Urine Negative (Negative); Protein Urine Trace (Negative); Specific Gravity, Urine 1.015 (1.005-1.030); Sulfosalicylic Acid Urine Negative (Negative); Urine Appearance Cloudy (CLEAR); Urine Color Amber (Yellow); Urobilinogen Urine Norm (Negative); pH Urine 9 (5-7)
[2021-04-20 13:18] LABS: Amphetamines Screen Urine Negative (Negative); Barbiturates Screen Urine Positive (Negative); Benzodiazepines Screen Urine Positive (Negative); Cocaine Screen Urine Negative (Negative); Opiate Screen Urine Negative (Negative); PCP Screen Urine Negative (Negative); THC Screen Urine Negative (Negative)
[2021-04-20 13:36] LABS: RBC Urine 0-4 /hpf (0-2)
[2021-04-20] MEDS: cefTRIAXone 1,000 MG in sodium chloride 0.9% (plus) 50 ML 100 MG IV (13:36)
[2021-04-20 13:38] LABS: Amorphous Sediment Urine 4+ /hpf; Bacteria Urine TRACE /hpf; Triple Phosphate Crystal Urine 0-4 /hpf
[2021-04-20 13:39] LABS: Add Urine Culture? Yes
[2021-04-20 14:04] LABS: Troponin(5th) Baseline 127 ng/L (0-10)
[2021-04-20] MEDS: enoxaparin 60 mg/0.6 mL Syringe 50 MG SUBCUT (14:42)
--- NOTE | 2021-04-20 14:56 | ECG_ITS ---
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 Measurements Intervals [place] Rate: 80 P: 14 SC: 173 QRS: -32 QRSD: 101 T: 177 QT: 409 QTc: 474 Interpretive Statements SINUS RHYTHM LEFT AXIS DEVIATION [QRS AXIS < -30] ANTEROSEPTAL MYOCARDIAL INFARCTION , PROBABLY RECENT [40+ ms Q WAVE IN V1-V4] ACUTE NC Compared to ECG 04/20/2021 12:38:04 Left-axis deviation now present Left ventricular hypertrophy no longer present ST (T wave) deviation no longer present Myocardial infarct finding still present Electronically Signed On 04-20-2021 20:14:56 CDT by Berenice Summers M.D. [id number]
[2021-04-20 15:01] LABS: Troponin 5 2HR 115.3 ng/L (0-10); Troponin 5 2HR Delta -11.7 ABS# (0-10)
--- NOTE | 2021-04-20 15:06 | PC.NURSE ---
2 hour troponin 150.3 received from lab, reported to Dr. Merrill by this RN.
--- NOTE | 2021-04-20 15:57 | P.HP_ITS ---
Providers/Chief Complaint Admitting Physician: Jose Yusuf Primary Care Provider: Deyanira Worthington MD Chief Complaint: FALL 2 DAYS AGO History of Present Illness 80-year-old lady with end-stage Parkinson's disease, advanced dementia, HTN, ischemic cardiomyopathy recently admitted to the hospital, discharged on 04/06 to the correction was brought to ER after sustaining a fall at the correction with injury of the left hip. This was imaged with x-ray and CT with equivocal x-ray, but no acute left hip fracture noted on CT only mild soft tissue edema. In ER she is found to have elevated troponin, 127-115.3, possible acute WY noted on EKG. Cardiology was contacted. She is already on aspirin and Plavix from prior hospitalization, at that time was found to be too frail to undergo coronary angiography. She is started on Lovenox. She is also given a dose of ceftriaxone for possible urinary tract infection, 5-10 WBC in urine, 0-4 RBC, negative nitrate, trace bacteria. Her is at bedside and daughters in the waiting room. She is lethargic, although reportedly was speaking to one of the daughters earlier. Reportedly has received benzodiazepine which is her usual medication, and the mental status earlier reported close to her baseline. Review of Systems General: Reports: ROS unobtainable due to mental status and Other Medications/Allergies Home Medications Medication Instructions Recorded Confirmed Last Taken Type alprazolam 0.25 mg PO QID PRN MDD SEE 03/28/21 03/28/21 03/28/21 History PHARMACY COMMENT amlodipine 5 mg PO DAILY 03/28/21 03/28/21 03/28/21 History carbidopa-levodopa 1 tab PO BEDTIME 03/28/21 03/28/21 03/27/21 History carbidopa-levodopa 1.5 tab PO QID@08,10,12,16 MDD see 03/28/21 03/29/21 03/28/21 History pharmacy comment chlorthalidone 25 mg PO DAILY 03/28/21 03/28/21 03/28/21 History cholecalciferol (vitamin D3) 25 mcg PO DAILY 03/28/21 03/28/21 03/28/21 History [Vitamin D3] clonidine 0.2 mg TRANSDERMAL Q7D MDD see 03/28/21 03/29/21 03/26/21 History pharmacy comment last changed 03/26 entacapone 200 mg PO QID 03/28/21 03/28/21 03/28/21 History ferrous gluconate 324 mg PO DAILY 03/28/21 03/28/21 03/28/21 History folic acid 1 mg PO DAILY 03/28/21 03/28/21 03/28/21 History methotrexate sodium 17.5 mg PO Q7D 03/28/21 03/28/21 03/25/21 History omeprazole 20 mg PO DAILY 03/28/21 03/28/21 03/28/21 History pramipexole 2 mg PO TID 03/28/21 03/28/21 03/28/21 History primidone 300 mg PO BEDTIME 03/28/21 03/28/21 03/27/21 History aspirin 81 mg PO DAILY #30 tab 03/31/21 Unknown Rx atorvastatin 40 mg PO BEDTIME 30 Days #30 tab 03/31/21 Unknown Rx clopidogrel 75 mg PO DAILY 30 Days #30 tab 03/31/21 Unknown Rx furosemide [Lasix] 10 mg PO Q48H PRN #30 tab 03/31/21 Unknown Rx lisinopril 2.5 mg PO DAILY #30 tab 03/31/21 Unknown Rx metoprolol succinate 12.5 mg PO DAILY 30 Days #30 tab 03/31/21 Unknown Rx nitroglycerin [Nitrostat] 0.4 mg SUBLINGUAL Q5M #7 tab 03/31/21 Unknown Rx potassium chloride 10 meq PO Q48H 30 Days #0 tab 03/31/21 03/28/21 03/28/21 Rx spironolactone 25 mg PO DAILY 30 Days #30 tab 03/31/21 Unknown Rx Allergies Allergy/AdvReac Type Severity Reaction Status Date / Time No Known Allergies Allergy Verified 03/28/21 19:19 PFSH Acute PFSH: Medical History Dementia Hypertension Ischemic cardiomyopathy Parkinsons disease Social History Housing: Halfway Marital status: Vitals/I&O/Wt Last Vital Signs Temp 97.7 F 04/20/21 11:21 Pulse 67 10/13/21 15:39 Resp 16 04/20/21 11:21 BP 129/63 04/20/21 15:39 Pulse Ox 98 04/20/21 15:39 04/20/21 04/20/21 04/20/21 06:59 14:59 22:59 Intake Total 550 / 550 Balance 550 / 550 Weight last 48 hrs Weight 47.627 kg Physical Exam Const: COMMON NORMALS: no acute distress; negative for patient oriented x3 GENERAL APPEARANCE: not cooperative ORIENTATION/CONSCIOUSNESS: Yes confused and Yes lethargic HENMT: COMMON NORMALS: oropharynx normal Neck/C-Spine: COMMON NORMALS: no JVD Resp: COMMON NORMALS: normal respiratory effort and clear to auscultation bilaterally AUSCULTATION: clear to auscultation bilaterally Cardio: COMMON NORMALS: no JVD, regular rhythm, S1 normal heart sound present, S2 normal heart sound present and No murmurs present (Cardio) RHYTHM: regular rhythm HEART SOUNDS: S1 normal heart sound present and S2 normal heart sound present GI: COMMON NORMALS: Normal to inspection, nondistended, normoactive bowel sounds present, Soft to palpation and non-tender PALPATION: Yes Soft to palpation Extremity: COMMON NORMALS: no joint enlargement GENERAL: Yes edema (trace) Neuro: COMMON NORMALS: moves all extremities; negative for patient oriented x3 Skin: COMMON NORMALS: no rashes or lesions noted GENERAL SKIN EXAM: no rashes or lesions noted Urinary Catheter Management^: Jefferson: Cath Placed During This Visit: no Data : 04/20/21 11:58 04/20/21 11:58 A&P Assessment and plan (1) Non-ST elevation WY (NSTEMI): Elevation of troponin in the setting of normal renal function, gradual decrease, 127-115.3. EKG with possible anteroseptal WY. Unable to gather symptoms. With known ischemic cardiomyopathy from just the recent admission. At that time deemed too frail to undergo coronary angiography. Discussed consideration with family again with regards to advanced goals of care. They are okay with her coming into the hospital and starting on anticoagulation currently in addition to aspirin Plavix, with monitoring, however, although currently she is at the correction per discussion of daughters with they have been thinking about taking her back home to stay with the family. The have not discussed and have not been aware of hospice services. Discussed briefly with them consideration of more aggressive care with pursuit of stress test and/or coronary angiography for additional assessment, possible stenting, however, with the advanced state of her Parkinson's disease, dementia, poor functional capacity quality of life, and additional risk given she gets up and going on her own, pulls on anything attached to her body, risk is found to outweigh the benefit by the family to try to pursue any additional more aggressive interventions. On consideration they are interested in hearing more about how she may return home and hospice care. We will request case management to further discuss with them regarding options. Status: Acute (2) Contusion of hip: After fall. No fracture on CT. Status: Acute (3) Acute UTI: Rocephin. Follow-up urine culture. Recent cultures negative. Status: Acute (4) Ischemic cardiomyopathy: Diagnosed during recent prior admission. EF 35%. Status: Acute (5) History of fall: Status: Acute (6) Parkinsons disease: End-stage Status: Acute (7) Dementia: Advanced dementia, with poor safety awareness, sometimes getting up from bed, possibly hallucinations as well Status: Acute Additional A&P Information HTN Attestations Medical Necessity Statement*: Place in observation for assessment of management of NSTEMI in the setting of limited goals of care. Coding Level of Care Code Acute Card Tender for g Fwd Exam Comprehensive Diagnoses Non-ST elevation WY (NSTEMI) I21.4 Contusion of hip S70.00XA Acute UTI N39.0 Ischemic cardiomyopathy I25.5 History of fall Z91.81 Parkinsons disease G20 Dementia F03.90
--- NOTE | 2021-04-20 16:27 | PC.NURSE ---
Arrived to floor via ER. at bedside. Pt is not alert or oriented. Pt is able to answer questions appropriately. Pt's VS are stable. Pt is resting in bed with even and unlabored breathing. Nurse will continue to monitor.
[2021-04-20] MEDS: aspirin 325 mg Tablet PO (17:22)
--- NOTE | 2021-04-20 18:56 | ECG_ITS ---
[facility] Test Date: 2021-04-20 Pat Name: Michaela Sauer Department: Room: 112 Gender: Female Rice Drier: : 1940 Requested By: Dariel Merrill Order Number: [id number] Hawa MD: Betzaida Bragg M.D. Measurements Intervals [place] Rate: 84 P: 52 SD: 163 QRS: -31 QRSD: 95 T: 184 QT: 393 QTc: 467 Interpretive Statements SINUS RHYTHM POSSIBLE LEFT ATRIAL ENLARGEMENT [-0.1mV P WAVE IN V1/V2] LEFT AXIS DEVIATION [QRS AXIS < -30] POSSIBLE RIGHT VENTRICULAR CONDUCTION DELAY [RSR (QR) IN V1/V2] ANTEROSEPTAL MYOCARDIAL INFARCTION , PROBABLY RECENT [40+ ms Q WAVE IN V1-V4] Compared to ECG 04/20/2021 17:21:55 No significant changes Electronically Signed On 04-22-2021 5:55:51 CDT by Betzaida Bragg M.D. [email or web address]
[2021-04-20 19:01] LABS: Troponin 5 6HR Delta -25.8 ng/L (0-12)
[2021-04-20 19:02] LABS: Troponin 5 6HR 101.2 ng/L (0-10)
[2021-04-20] MEDS: OLANZapine 10 mg VIAL 2.5 MG IM (22:02)
[2021-04-21] VITALS (11 sets, daily range): BP systolic 106–139; BP diastolic 60–79; PULSE 61–94; RESP 8–20; TEMP 36.6–37.1; O2SAT 92–98
[2021-04-21 03:34] LABS: Basophils % 0.5 %; Eosinophils # 0.1 10^3/uL (0.0-0.8); Eosinophils % 1.6 %; Hematocrit 32.6 % (37.0-47.0); Lymphocytes % 25.5 %; Mean Corpuscular HGB Conc 33.7 g/dL (30.0-36.0); Mean Corpuscular Hemoglobin 31.3 pg (28.0-34.0); Mean Corpuscular Volume 92.9 fl (81-99); Mean Platelet Volume 10.6 fL (7.4-10.4); Monocytes # 0.4 10^3/uL (0.2-0.9); Neutrophils # 2.37 10^3/uL (1.8-7.7); Neutrophils % 62.4 %; Nucleated Red Blood Cells % 0 %; Platelet Count 128 10^3/cmm (130-400); Red Blood Count 3.51 10^6/uL (4.1-5.3); Red Cell Distribution Width 13.7 % (12.1-15.1); White Blood Count 3.8 10^3/uL (4.0-10.0)
[2021-04-21 03:57] LABS: Blood Urea Nitrogen 16 mg/dL (8-23); Calcium 8.5 mg/dL (8.5-10.5); Carbon Dioxide 27 mmol/L (22-29); Chloride 100 mmol/L (98-107); Glucose 73 mg/dL (65-115); Osmolality Calculated 282 mOsm/kg (285-295); Sodium 136 mmol/L (136-145)
[2021-04-21] MEDS: enoxaparin 60 mg/0.6 mL Syringe 50 MG SUBCUT ×2 (06:15→17:24)
--- NOTE | 2021-04-21 07:50 | P.CONIM_ITS ---
Providers/Reason For Consult Consulting Physician/Specialty*: David Cordero MD/ Cardiology Reason for Consult*: NSTEMI Requesting Physician: Dr Merrill Attending Physician: Jose Yusuf Primary Care Provider: Deyanira Worthington MD History of Present Illness History of Present Illness Michaela Sauer is a 80 year old female with end-stage Parkinson's disease, advanced dementia, HTN, ischemic cardiomyopathy who has presented from skilled nursing after sustaining a fall. She had injury of left hip. X-rays do not reveal hip fracture. CT showed mild soft tissue edema. Her troponin levels were elevated at 127. Trended down to 115 on recheck. EKG not showing acute ST changes. She had a recent NSTEMI as well. Cardiology consulted to evaluate for non-ST elevation WY and further management. Echo done on last admission showed moderate to severely reduced LV systolic function with EF of 35 to 40%. She was not considered to be a candidate to undergo coronary angiogram based on her frailty and comorbidities. Review of Systems General: Reports: ROS unobtainable due to mental status Meds/Allergies Home Medications and Allergies Home Medications Medication Instructions Recorded Confirmed Last Taken Type alprazolam 0.25 mg PO QID PRN MDD SEE 03/28/21 04/20/21 04/20/21 08:00 History PHARMACY COMMENT amlodipine 5 mg PO DAILY 03/28/21 04/20/21 04/20/21 08:00 History carbidopa-levodopa 1 tab PO BEDTIME 03/28/21 04/20/21 04/19/21 21:00 History carbidopa-levodopa 1.5 tab PO QID@08,10,12,16 MDD see 03/28/21 04/20/21 04/20/21 08:00 History pharmacy comment chlorthalidone 25 mg PO DAILY 03/28/21 04/20/21 04/20/21 08:00 History cholecalciferol (vitamin D3) 25 mcg PO DAILY 03/28/21 04/20/21 04/20/21 08:00 History [Vitamin D3] clonidine 0.2 mg TRANSDERMAL Q7D MDD see 03/28/21 04/20/21 04/15/21 08:00 History pharmacy comment entacapone 200 mg PO QID 03/28/21 04/20/21 04/20/21 08:00 History ferrous gluconate 324 mg PO DAILY 03/28/21 04/20/21 04/20/21 08:00 History folic acid 1 mg PO DAILY 03/28/21 04/20/21 04/20/21 08:00 History omeprazole 20 mg PO DAILY 03/28/21 04/20/21 04/20/21 08:00 History pramipexole 2 mg PO TID 03/28/21 04/20/21 04/20/21 08:00 History aspirin 81 mg PO DAILY #30 tab 03/31/21 04/20/21 04/20/21 08:00 Rx atorvastatin 40 mg PO BEDTIME 30 Days #30 tab 03/31/21 04/20/21 04/19/21 21:00 Rx clopidogrel 75 mg PO DAILY 30 Days #30 tab 03/31/21 04/20/21 04/20/21 08:00 Rx furosemide [Lasix] 10 mg PO Q48H PRN #30 tab 03/31/21 04/20/21 04/18/21 08:00 Rx lisinopril 2.5 mg PO DAILY #30 tab 03/31/21 04/20/21 04/20/21 08:00 Rx metoprolol succinate 12.5 mg PO DAILY 30 Days #30 tab 03/31/21 04/20/21 04/20/21 08:00 Rx nitroglycerin [Nitrostat] 0.4 mg SUBLINGUAL Q5M #7 tab 03/31/21 04/20/21 Unknown Rx potassium chloride 10 meq PO Q48H 30 Days #0 tab 03/31/21 04/20/21 04/18/21 08:00 Rx spironolactone 25 mg PO DAILY 30 Days #30 tab 03/31/21 04/20/21 04/20/21 08:00 Rx neomycin-polymyxin B-dexameth 1 drp OPHTHALMIC (EYE) TID 04/20/21 04/20/21 04/20/21 08:00 History primidone 300 mg PO BEDTIME 04/20/21 04/20/21 04/19/21 21:00 History risperidone 0.25 mg PO BEDTIME 04/20/21 04/20/21 04/19/21 21:00 History methotrexate sodium 17.5 mg PO Q7D 04/21/21 04/21/21 Unknown History cefdinir 300 mg PO BID 7 Days #14 cap 04/22/21 Unknown Rx Allergies Allergy/AdvReac Type Severity Reaction Status Date / Time No Known Allergies Allergy Verified 03/28/21 19:19 Current Medications Current Medications Generic Name Dose Route Start Last Admin Trade Name Freq PRN Reason Stop Dose Admin Enoxaparin Sodium 50 mg 04/21/21 06:00 04/21/21 06:15 Enoxaparin 60 Mg/0.6 Ml Syringe 1 mg/kg (50 mg) 50 mg SUBCUT Administration Q12H PAYAL PFSH Acute PFSH: Medical History Dementia Hypertension Ischemic cardiomyopathy Parkinsons disease Social History Housing: Halfway Marital status: Vitals/I&O/Wt Last Vital Signs Temp 98.2 F 04/21/21 03:44 Pulse 62 04/21/21 05:04 Resp 8 L 04/21/21 05:04 BP 139/70 04/21/21 05:04 Pulse Ox 98 04/20/21 15:39 04/20/21 04/21/21 04/21/21 22:59 06:59 14:59 Output Total 900 / 900 Balance -900 / -900 Weight last 48 hrs Weight 114 lb Weight 105 lb Physical Exam Narrative: EXAM NARRATIVE: GENERAL: Confused NECK: No jugular vein distension. [] HEENT: No cyanosis. No icterus. No pallor. [] HEART: Regular S1 and S2. Grade 2/ 6 systolic murmur LUNGS: Clear to auscultate bilaterally. [] ABDOMEN: Soft, nontender and nondistended. Positive bowel sounds. No guarding, rebound or tenderness. [] CENTRAL NERVOUS SYSTEM: Tremors EXTREMITIES: Lower extremities with 1+ edema bilaterally. Pulses palpable in the lower extremities, both dorsalis pedis and posterior tibial. [] Urinary Catheter Management^: Jefferson: Cath Placed During This Visit: no Reason for Continuing Indwelling Catheter: Other A&P Assessment and plan (1) Ischemic cardiomyopathy: Status: Acute (2) Elevated troponin: Status: Acute (3) Parkinsons disease: Status: Acute (4) Dementia: Status: Acute Patient has severe dementia and Parkinson's disease. Not a candidate for invasive procedures given her frailty and comorbidities. Continue with medical therapy. Her troponin elevation is likely secondary to demand ischemia. Can complete 48 hours of anticoagulation. Continue aspirin and Plavix. Telemetry monitoring. Trend troponins. Thank you for involving us with care of this patient. We will continue to follow. Please call with questions. Coding Level of Care Code Acute Student Life Vice President for Shira Lanzad Diagnoses Ischemic cardiomyopathy I25.5 Elevated troponin R77.8 Parkinsons disease G20 Dementia F03.90
[2021-04-21] MEDS: HYDROmorphone 1 mg/mL INJ 1 mL 0.2 MG IVP (08:21)
[2021-04-21] MEDS: aspirin 81 mg EC Tablet PO (08:23)
[2021-04-21] MEDS: clopidogrel 75 mg Tablet PO (08:23)
--- NOTE | 2021-04-21 10:33 | PC.NURSE ---
transfer to 2nd floor 264...report given
--- NOTE | 2021-04-21 11:32 | PC.CHAP ---
Pastoral Care Encounter/Spiritual Assessment Type of Contact [] Declined black ash worker visit [] Patient/Family/Request visit [] Outpatient visit [] Follow-up visit [] Physician referral [] Code/Alert [x] Routine visit [] Staff referral [] Actively dying [] Patient sleeping [] Family support [] [] Out of room [] Palliative care [x] [x] Receiving care in room [] Pre-surgical visit [] Trauma [x] Long length of stay [] ICU visit [X] Other: +1 marie taking care of her health Relational/Emotional Strength [x] Patient feels connected with others/family/visitors/staff [] Distress [] Loneliness/isolation [] Abandonment Spirituality of Patient [x] Person of Dorothy [] Attends Lutheran of their Dorothy [] Believes in Prayer [] Reads Bible or Latter Day materials [] There are Spiritual issues to be addressed Certified Nursing Assistant Interventions [x] Prayer [x] Active listening [x] Non-anxious presence [x] Spiritual/emotional support [] Crisis/trauma care [x] Spiritual counseling [] Bereavement support [] Provided bereavement packet [] Provided Bible/devotional materials [] Provided toy/stuffed animal, coloring book to patient or family member [] Provided Communion [] Anointing/[place] [] Salvation [x] Completed spiritual assessment [] Other: Impact on Illness or Injury [] Angry [] Fearful [] Anxious [] Often cries [] Exhaustion [] Unable to work [] Unable to attend roman catholic [] Unable to walk/stand [] Unable to read [] Unable to drive [] Unable to eat/drink [] Unable to sleep [] Unable to be with family [] Patient intubated [] Other: Summary +1 marie taking care of her health Time spent with patient 10 mins
[2021-04-21] MEDS: cefTRIAXone 1,000 MG in sodium chloride 0.9% (plus) 50 ML 100 MG IV (12:06)
[2021-04-21] MEDS: carbidopa-levodopa 25-100mg Tablet 1.5 EACH PO ×2 (12:08→15:30)
[2021-04-21] MEDS: pramipexole 0.25 mg Tablet 2 MG PO ×2 (15:30→21:09)
[2021-04-21] MEDS: risperiDONE 0.25 mg Tablet PO (21:10)
[2021-04-21] MEDS: primidone 50 mg Tablet 300 MG PO (21:10)
[2021-04-21] MEDS: atorvastatin 40 mg Tablet PO (21:10)
[2021-04-21] MEDS: carbidopa-levodopa ER 50-200mg Tablet 1 EACH PO (21:27)
--- NOTE | 2021-04-21 21:41 | P.PN_ITS ---
Subjective Subjective: Interval history: Was complaining of left hand pain yesterday, and has been complaining of some right ankle pain, although appears has also had prior surgery there with old hardware. Resting during my visit. Daughter at bedside. Vitals/I&O/Wt Last Vital Signs Temp 98.8 F 04/21/21 19:25 Pulse 94 04/21/21 19:25 Resp 20 H 04/21/21 19:25 BP 136/60 04/21/21 19:25 Pulse Ox 96 04/21/21 19:25 04/21/21 04/21/21 04/21/21 06:59 14:59 22:59 Intake Total 290 / 290 Output Total 900 / 900 Balance -610 / -610 Weight last 48 hrs Weight 51.71 kg Weight 47.627 kg Physical Exam Const: COMMON NORMALS: no acute distress GENERAL APPEARANCE: not cooperative ORIENTATION/CONSCIOUSNESS: not awake HENMT: COMMON NORMALS: oropharynx normal Neck/C-Spine: COMMON NORMALS: no JVD Resp: COMMON NORMALS: normal respiratory effort and clear to auscultation bilaterally AUSCULTATION: clear to auscultation bilaterally Cardio: COMMON NORMALS: no JVD, regular rhythm, S1 normal heart sound present, S2 normal heart sound present and No murmurs present (Cardio) RHYTHM: regular rhythm HEART SOUNDS: S1 normal heart sound present and S2 normal heart sound present GI: COMMON NORMALS: Normal to inspection, nondistended, normoactive bowel sounds present, Soft to palpation and non-tender PALPATION: Yes Soft to palpation Extremity: COMMON NORMALS: no joint enlargement GENERAL: Yes edema (trace) Neuro: COMMON NORMALS: moves all extremities Skin: COMMON NORMALS: no rashes or lesions noted GENERAL SKIN EXAM: no rashes or lesions noted Urinary Catheter Management^: Jefferson: Cath Placed During This Visit: no Reason for Continuing Indwelling Catheter: Other Data : 04/21/21 03:27 04/21/21 03:27 Micro: Microbiology 04/20/21 12:33 Urine Culture - Preliminary Urine,Clean Catch Gram Negative Rods A&P Assessment and plan (1) Non-ST elevation [place] (NSTEMI): Continue medical treatment as per cardiology, continue to coagulation currently. Continue other cardiac meds. Plan is for return to long term facility tomorrow. Family are exploring the idea of transition to hospice with return home. Status: Acute (2) Contusion of hip: After fall. No fracture on CT. Status: Acute (3) Acute UTI: Rocephin. Gram-negative rods in urine culture. Recent cultures negative. Status: Acute (4) Ischemic cardiomyopathy: Diagnosed during recent prior admission. EF 35%. Status: Acute (5) History of fall: Status: Acute (6) Parkinsons disease: End-stage Status: Acute (7) Dementia: Advanced dementia, with poor safety awareness, sometimes getting up from bed, possibly hallucinations as well Status: Acute Additional A&P Information HTN Left hand pain after fall: X-rays Right ankle pain after fall: X-rays Attestations Medical Necessity Statement*: Continue hospitalization for medical management of NSTEMI, assessment after fall with pain in left hand, right ankle, goals of care planning, disposition planning and arrangements. Coding Level of Care Code Acute Judo Instructor for Shira Cagle Diagnoses Non-ST elevation RI (NSTEMI) I21.4 Contusion of hip S70.00XA Acute UTI N39.0 Ischemic cardiomyopathy I25.5 History of fall Z91.81 Parkinsons disease G20 Dementia F03.90
--- NOTE | 2021-04-21 21:41 | XRR_ITS ---
PROCEDURE INFORMATION: Exam: XR Right Ankle Exam date and time: 04/21/2021 9:41 PM Age: 80 years old Clinical indication: Injury or trauma; Fall; Blunt trauma; Ankle; Right; Prior surgery; Additional info: Pain, fall, old hardware TECHNIQUE: Imaging protocol: XR Right ankle. Views: 3 or more views. Total images: 3 COMPARISON: No relevant prior studies available. FINDINGS: Bones/joints: No visible fracture. 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 Prominent talar beak. Advanced osteoporosis. Screw arthrodesis medial malleolus. Soft tissues: Unremarkable for age. Vasculature: Arteriosclerosis. XR/XR ankle RT min 3V* [id number] IMPRESSION: Nonacute. Radiation Dose CTDIVOL = (mGy): DLP = (mGy-cm)
--- NOTE | 2021-04-21 21:41 | XRR_ITS ---
PROCEDURE INFORMATION: Exam: XR Left Hand Exam date and time: 04/21/2021 9:41 PM Age: 80 years old Clinical indication: Injury or trauma; Fall; Blunt trauma (contusions or hematomas); Hand; Left; Additional info: Fall, pain TECHNIQUE: Imaging protocol: XR Left hand. Views: 3 or more views. Total images: 3 COMPARISON: No relevant prior studies available. FINDINGS: Bones/joints: No visible acute osseous abnormality. Advanced osteoporosis. Advanced primary osteoarthritis. Boutonniere deformity of the thumb. Chondrocalcinosis. Soft tissues: Unremarkable. Vasculature: Arteriosclerosis. XR/XR hand LT min 3V* [id number] IMPRESSION: No visible fracture. Radiation Dose CTDIVOL = (mGy): DLP = (mGy-cm)
[2021-04-22 04:00] VITALS: BP 129/62; PULSE 76; RESP 20; TEMP 36.8; O2SAT 96
[2021-04-22] MEDS: enoxaparin 60 mg/0.6 mL Syringe 50 MG SUBCUT (05:19)
[2021-04-22 06:28] LABS: Basophils % 0.5 %; Hematocrit 31.1 % (37.0-47.0); Hemoglobin 10.7 g/dL (11.5-15.3); Lymphocytes # 0.8 10^3/uL (0.8-4.8); Lymphocytes % 19.3 %; Mean Corpuscular HGB Conc 34.4 g/dL (30.0-36.0); Mean Corpuscular Hemoglobin 31.8 pg (28.0-34.0); Mean Corpuscular Volume 92.6 fl (81-99); Mean Platelet Volume 11.3 fL (7.4-10.4); Monocytes # 0.4 10^3/uL (0.2-0.9); Monocytes % 9.9 %; Neutrophils # 2.72 10^3/uL (1.8-7.7); Nucleated Red Blood Cells % 0 %; Platelet Count 121 10^3/cmm (130-400); Red Blood Count 3.36 10^6/uL (4.1-5.3); Red Cell Distribution Width 13.6 % (12.1-15.1); White Blood Count 3.9 10^3/uL (4.0-10.0)
[2021-04-22 06:53] LABS: Anion Gap 12.4 (5-19); Blood Urea Nitrogen 20 mg/dL (8-23); Calcium 8.2 mg/dL (8.5-10.5); Carbon Dioxide 26 mmol/L (22-29); Chloride 100 mmol/L (98-107); Glucose 97 mg/dL (65-115); Osmolality Calculated 283 mOsm/kg (285-295); Potassium 3.4 mmol/L (3.5-5.1); Sodium 135 mmol/L (136-145)
--- NOTE | 2021-04-22 07:42 | PM.PN ---
Subjective Subjective: Interval history: Patient is stable. Denies chest pain Vitals/I&O/Wt Last Vital Signs Temp 98.2 F 04/22/21 04:00 Pulse 76 04/22/21 04:00 Resp 20 H 04/22/21 04:00 BP 129/62 04/22/21 04:00 Pulse Ox 96 04/22/21 04:00 04/21/21 04/22/21 04/22/21 22:59 06:59 14:59 Intake Total 100 / 390 Output Total 475 / 1375 Balance -375 / -985 Weight last 48 hrs Weight 114 lb Weight 105 lb Physical Exam Narrative: EXAM NARRATIVE: GENERAL: Confused NECK: No jugular vein distension. [] HEENT: No cyanosis. No icterus. No pallor. [] HEART: Regular S1 and S2. Grade 2/ 6 systolic murmur LUNGS: Clear to auscultate bilaterally. [] ABDOMEN: Soft, nontender and nondistended. Positive bowel sounds. No guarding, rebound or tenderness. [] CENTRAL NERVOUS SYSTEM: Tremors EXTREMITIES: Lower extremities with 1+ edema bilaterally. Pulses palpable in the lower extremities, both dorsalis pedis and posterior tibial. [] Urinary Catheter Management^: Jefferson: Cath Placed During This Visit: no Reason for Continuing Indwelling Catheter: Acute Urinary Retention or Obstruction Data : 04/22/21 06:10 04/22/21 06:10 Micro: Microbiology 04/20/21 12:33 Urine Culture - Preliminary Urine,Clean Catch Gram Negative Rods A&P Assessment and plan (1) Ischemic cardiomyopathy: Status: Acute (2) Elevated troponin: Status: Acute (3) Parkinsons disease: Status: Acute (4) Dementia: Status: Acute Patient has severe dementia and Parkinson's disease. Not a candidate for invasive procedures given her frailty and comorbidities. Continue with medical therapy. Her troponin elevation is likely secondary to demand ischemia. Has completed 48 hours of anticoagulation. Continue aspirin and Plavix Telemetry monitoring. Troponins trended down. Thank you for involving us with care of this patient. Patient is stable to be discharged from cardiology standpoint. Please call with questions. Attestations Medical Necessity Statement*: Care expected to cross 2 midnights. Coding Level of Care Code Acute Director Of Revenue for Shira Cagle Diagnoses Ischemic cardiomyopathy I25.5 Elevated troponin R77.8 Parkinsons disease G20 Dementia F03.90
[2021-04-22 08:00] VITALS: BP 144/68; PULSE 88; RESP 17; TEMP 37.1; O2SAT 96
[2021-04-22] MEDS: pramipexole 0.25 mg Tablet 2 MG PO (09:02)
[2021-04-22] MEDS: metoprolol succinate ER (24 HR) 25 mg Tablet 12.5 MG PO (09:02)
[2021-04-22] MEDS: aspirin 81 mg EC Tablet PO (09:02)
[2021-04-22] MEDS: carbidopa-levodopa 25-100mg Tablet 1.5 EACH PO ×3 (09:03→11:53)
[2021-04-22] MEDS: pantoprazole DR 40 mg Tablet PO (09:03)
[2021-04-22] MEDS: clopidogrel 75 mg Tablet PO (09:03)
[2021-04-22] MEDS: cloNIDine 0.2 mg/24 hr Patch 1 PATCH TRANSDERMA (11:54)
--- NOTE | 2021-04-22 12:38 | PM.DCS ---
Discharge Providers Date of Admission: 04/20/21 14:23 Date of Discharge: April 22, 2021 Attending Provider at Admission: Jose Yusuf Attending Provider at Discharge: Jose Yusuf Primary Care Provider: Deyanira Worthington MD Diagnoses at Discharge Discharge Diagnosis (1) Non-ST elevation OK (NSTEMI): Status: Acute (2) Contusion of hip: Status: Acute (3) Acute UTI: Status: Acute (4) Ischemic cardiomyopathy: Status: Acute (5) History of fall: Status: Acute (6) Parkinsons disease: Status: Acute (7) Dementia: Status: Acute Reason for Visit Reason for Visit: FALL 2 DAYS AGO Hospital Course Hospital Course 80-year-old lady with end-stage Parkinson's disease, advanced dementia, HTN, ischemic cardiomyopathy recently admitted to the hospital, discharged on 04/06 to the residential was brought to ER after sustaining a fall at the residential with injury of the left hip. This was imaged with x-ray and CT with equivocal x-ray, but no acute left hip fracture noted on CT only mild soft tissue edema. In ER she is found to have elevated troponin, 127-115.3, possible acute OK noted on EKG. Cardiology was contacted. She is already on aspirin and Plavix from prior hospitalization, at that time was found to be too frail to undergo coronary angiography. She is started on Lovenox. She is also given a dose of ceftriaxone for possible urinary tract infection, 5-10 WBC in urine, 0-4 RBC, negative nitrate, trace bacteria. Her is at bedside and daughters in the waiting room. She is lethargic, although reportedly was speaking to one of the daughters earlier. Reportedly has received benzodiazepine which is her usual medication, and the mental status earlier reported close to her baseline. She was monitored in the hospital with therapeutic anticoagulation, continue aspirin, Plavix, beta-hiral, statin. She was also treated with ceftriaxone for urinary tract infection, with culture returning with E. coli sensitive to cephalosporins. Extensive goals of care discussions were held with her family including and daughters. They did not feel she would be a good candidate for any additional more invasive testing or interventions. Overall they preferred to keep her goals of care limited, they were okay with receiving the above treatment, but without escalation and definitely no invasive intervention including coronary angiography. She remained stable and as per discussions with family is returning to senior care facility at the moment to continue with supportive and comfort measures. They are giving thought and consideration to her sometime possibly returning home with hospice. Physical Exam Const: COMMON NORMALS: no acute distress GENERAL APPEARANCE: not cooperative OTHER: Pulling off her gown. HENMT: COMMON NORMALS: oropharynx normal Neck/C-Spine: COMMON NORMALS: no JVD Resp: COMMON NORMALS: normal respiratory effort and clear to auscultation bilaterally AUSCULTATION: clear to auscultation bilaterally Cardio: COMMON NORMALS: no JVD, regular rhythm, S1 normal heart sound present, S2 normal heart sound present and No murmurs present (Cardio) RHYTHM: regular rhythm HEART SOUNDS: S1 normal heart sound present and S2 normal heart sound present GI: COMMON NORMALS: Normal to inspection, nondistended, normoactive bowel sounds present, Soft to palpation and non-tender PALPATION: Yes Soft to palpation Extremity: COMMON NORMALS: no joint enlargement GENERAL: Yes edema (trace) Neuro: COMMON NORMALS: moves all extremities Skin: COMMON NORMALS: no rashes or lesions noted GENERAL SKIN EXAM: no rashes or lesions noted Urinary Catheter Management^: [place]: Cath Placed During This Visit: no Reason for Continuing Indwelling Catheter: Acute Urinary Retention or Obstruction Discharge Data Data Completed and Pending: Completed Studies During Hospitalization Category Date Time Status CT head wo con* 7 [id number] Stat Cat Scan 04/20/21 11:[address] hip LT wo con* [id number] Stat Cat Scan 04/20/21 12:26 Completed XR ankle RT min 3 V* [id number] Routine Exams 04/21/21 21:41 Completed XR chest 1V flori ble [id number] Stat Exams 04/20/21 11:22 Completed XR hand LT min 3V * [id number] Routine Exams 04/21/21 21:41 Completed XR hip LT 2-3V wo /w pel* [id number] Stat Exams 04/20/21 11:22 Completed Pending at discharge Category Date Time Status Basic Metabolic P kam AM LABS Lab 04/23/21 04:00 Ordered Complete Blood Co unt w/Auto AM LABS Lab 04/23/21 04:00 Ordered Labs from last 24 hours 04/22/21 04/22/21 06:10 06:10 WBC 3.9 L RBC 3.36 L Hgb 10.7 L Hct 31.1 L MCV 92.6 MCH 31.8 MCHC 34.4 RDW 13.6 Plt Count 121 L MPV 11.3 H Neut % (Auto) 69.0 Lymph % (Auto) 19.3 [place] % (Auto) 9.9 Eos % (Auto) 1.0 Baso % (Auto) 0.5 Neut # (Auto) 2.72 Lymph # (Auto) 0.8 [place] # (Auto) 0.4 Eos # (Auto) 0.0 Baso # (Auto) 0.0 Nucleated RBC % (a uto) 0 Nucleated RBCs # 0.0 Sodium 135 L Potassium 3.4 L Chloride 100 Carbon Dioxide 26 Anion Gap 12.4 BUN 20 Creatinine 0.7 GFR Calculation Not Reportable Glucose 97 Calculated Osmolal ity 283 L Calcium 8.2 L Vitals: Last Vital Signs Temp 98.8 F 04/22/21 08:00 Pulse 88 04/22/21 08:00 Resp 17 04/22/21 08:00 BP 144/68 04/22/21 08:00 Pulse Ox 96 04/22/21 08:00 Discharge Plan Discharge Patient Disposition: Xfer SNF Condition: Stable Prescriptions: New cefdinir 300 mg capsule 300 mg PO BID 7 Days Qty: 14 RF: 0 Continued pramipexole 1 mg tablet 2 mg PO TID RF: 0 clonidine 0.2 mg/24 hr patch weekly 0.2 mg transdermal Q7D MDD see pharmacy comment RF: 0 carbidopa-levodopa 50-200 mg tablet extended release 1 tab PO BEDTIME RF: 0 chlorthalidone 25 mg tablet 25 mg PO DAILY RF: 0 amlodipine 5 mg tablet 5 mg PO DAILY RF: 0 entacapone 200 mg tablet 200 mg PO QID RF: 0 alprazolam 0.25 mg tablet 0.25 mg PO QID MDD SEE PHARMACY COMMENT PRN (Reason: Anxiety) RF: 0 omeprazole 20 mg capsule,delayed release(DR/EC) 20 mg PO DAILY RF: 0 folic acid 1 mg tablet 1 mg PO DAILY RF: 0 carbidopa-levodopa 25-100 mg tablet 1.5 tab PO QID@08,10,12,16 MDD see pharmacy comment RF: 0 cholecalciferol (vitamin D3) [Vitamin D3] 25 mcg (1,000 unit) Tablet 25 mcg PO DAILY RF: 0 ferrous gluconate 324 mg (38 mg iron) tablet 324 mg PO DAILY RF: 0 aspirin 81 mg Tablet,Delayed Release (Dr/Ec) 81 mg PO DAILY Qty: 30 RF: 1 atorvastatin 40 mg Tablet 40 mg PO BEDTIME 30 Days Qty: 30 RF: 0 clopidogrel 75 mg Tablet 75 mg PO DAILY 30 Days Qty: 30 RF: 1 spironolactone 25 mg Tablet 25 mg PO DAILY 30 Days Qty: 30 RF: 0 metoprolol succinate 25 mg Tablet Extended Release 24 Hr 12.5 mg PO DAILY 30 Days Qty: 30 RF: 1 nitroglycerin [Nitrostat] 0.4 mg tablet, sublingual 0.4 mg sublingual Q5M Qty: 7 RF: 0 furosemide [Lasix] 20 mg tablet 10 mg PO Q48H PRN (Reason: weight gain) Qty: 30 RF: 0 potassium chloride 10 mEq tablet extended release 10 meq PO Q48H 30 Days Qty: 0 RF: 0 lisinopril 2.5 mg tablet 2.5 mg PO DAILY Qty: 30 RF: 0 primidone 50 mg Tablet 300 mg PO BEDTIME RF: 0 Risperdal 0.25 mg Tablet 0.25 mg PO BEDTIME RF: 0 neomycin-polymyxin B-dexameth 3.5mg/mL-10,000 unit/mL-0.1 % Drops,Suspension 1 drp OPHTHALMIC (EYE) TID RF: 0 methotrexate sodium 2.5 mg tablet 17.5 mg PO Q7D RF: 0 Discharge Orders: Discharge Order (Routine); Ordered 04/22/21 Ordered By: Jose Yusuf Referrals: [facility] [Outside] Deyanira Worthington MD [Primary Care Provider] - 4-7 days Discharge Diet: Usual diet Discharge Activity: Resume usual activity Activity Restrictions/Additional Instructions: Comfort measures. Discharge Attestations Time Spent in Discharge Care*: greater than 30 min Status at Discharge: Cognitive status at discharge: mildly impaired cognition, Behavioral status at discharge: cooperative, Quality Metrics Clinical Quality Measures During this hospital stay, did patient experience: AMI Clinical Trial Participant: No Contraindication to aspirin (AMI): Aspirin given Contraindication to statin: Statin prescribed Contraindication to PCI: Procedure not wanted Coding Level of Care Code Acute g FW DC note Diagnoses Non-ST elevation OK (NSTEMI) I21.4 Contusion of hip S70.00XA Acute UTI N39.0 Ischemic cardiomyopathy I25.5 History of fall Z91.81 Parkinsons disease G20 Dementia F03.90
--- NOTE | 2021-04-22 14:32 | PC.NURSE ---
report called to [facility]qas at [facility]. case management coordinator notified
--- NOTE | 2021-04-22 16:27 | PC.NURSE ---
patient left the unit with [facility]
[2021-04-22 16:35] VITALS: BP 144/68; PULSE 88; RESP 17; TEMP 37.1; O2SAT 96
== END 2021-04-22 16:43 | disposition skilled nursing facility (03) ==
LOC: ER 14:34 → CSU 15:12 → MEDSURG 04-21 10:00
PROVIDERS: Admitting Provider Internal Medicine; Emergency Provider Emergency Medicine; PCP Family Medicine; Visit Provider Internal Medicine
DX: I21.4 Non-ST elevation (NSTEMI) myocardial infarction (principal); S70.02XA Contusion of left hip, initial encounter; W19.XXXA Unspecified fall, initial encounter; N39.0 Urinary tract infection, site not specified; I25.5 Ischemic cardiomyopathy; Z91.81 History of falling; G20 Parkinson's disease; F03.90 Unspecified dementia, unspecified severity, without behavioral disturbance, psychotic disturbance, mood disturbance, and anxiety; I10 Essential (primary) hypertension; Z79.82 Long term (current) use of aspirin
CPT/HCPCS: 36415; 51702; 70450; 71045; 73130; 73502; 73610; 73700; 80048; 80053; 80306; 81001; 82140; 84484; 85025; 85610; 85730; 87077; 87086; 87186; 93005; 96365; 96367; 96372; 96375; 99285; G0378; J0696; J1170; J1650; J3490; J7040; J8610

== ENCOUNTER 2021-05-17 14:13 | Outpatient (CLI) | payer MEDICARE, SELFPAY | END 2021-05-17 14:14 | disposition home or self-care (01) | LOC: WOUND 14:14 | PROVIDERS: PCP Family Medicine; Visit Provider Thoracic Surgery (Cardiothoracic Vascular Surgery) | DX: L89.620 Pressure ulcer of left heel, unstageable (principal); L89.612 Pressure ulcer of right heel, stage 2 | CPT/HCPCS: 97597; G0463 ==

== ENCOUNTER 2021-05-31 13:57 | Outpatient (CLI) | payer MEDICARE, SELFPAY | END 2021-05-31 13:58 | disposition home or self-care (01) | LOC: WOUND 13:58 | PROVIDERS: PCP Family Medicine; Visit Provider Nurse Practitioner Family | DX: I96 Gangrene, not elsewhere classified (principal); L89.620 Pressure ulcer of left heel, unstageable; S90.511A Abrasion, right ankle, initial encounter; X58.XXXA Exposure to other specified factors, initial encounter; I10 Essential (primary) hypertension; M06.9 Rheumatoid arthritis, unspecified | CPT/HCPCS: G0463 ==

== ENCOUNTER 2021-06-08 15:18 | Outpatient (CLI) | payer MEDICARE, SELFPAY | END 2021-06-08 15:19 | disposition home or self-care (01) | LOC: WOUND 15:21 | PROVIDERS: PCP Family Medicine; Visit Provider Nurse Practitioner Family | DX: I96 Gangrene, not elsewhere classified (principal); L89.152 Pressure ulcer of sacral region, stage 2; S90.511A Abrasion, right ankle, initial encounter; X58.XXXA Exposure to other specified factors, initial encounter | CPT/HCPCS: G0463 ==

== ENCOUNTER 2021-06-22 14:05 | Outpatient (CLI) | payer MEDICARE, SELFPAY | END 2021-06-22 14:06 | disposition home or self-care (01) | LOC: WOUND 14:06 | PROVIDERS: PCP Family Medicine; Visit Provider Thoracic Surgery (Cardiothoracic Vascular Surgery) | DX: L89.620 Pressure ulcer of left heel, unstageable (principal); L89.152 Pressure ulcer of sacral region, stage 2; L89.212 Pressure ulcer of right hip, stage 2; S90.511A Abrasion, right ankle, initial encounter; X58.XXXA Exposure to other specified factors, initial encounter | CPT/HCPCS: 97597 ==

== ENCOUNTER 2021-06-29 14:59 | Outpatient (CLI) | payer MEDICARE, SELFPAY | END 2021-06-29 15:00 | disposition home or self-care (01) | LOC: WOUND 15:01 | PROVIDERS: PCP Family Medicine; Visit Provider Nurse Practitioner Family | DX: I96 Gangrene, not elsewhere classified (principal); L89.152 Pressure ulcer of sacral region, stage 2; S90.511A Abrasion, right ankle, initial encounter; X58.XXXA Exposure to other specified factors, initial encounter | CPT/HCPCS: A6021; G0463 ==

== ENCOUNTER 2021-07-13 13:51 | Outpatient (CLI) | payer MEDICARE, SELFPAY | END 2021-07-13 13:52 | disposition home or self-care (01) | LOC: WOUND 13:53 | PROVIDERS: PCP Family Medicine; Visit Provider Thoracic Surgery (Cardiothoracic Vascular Surgery) | DX: I96 Gangrene, not elsewhere classified (principal); S90.511A Abrasion, right ankle, initial encounter; X58.XXXA Exposure to other specified factors, initial encounter | CPT/HCPCS: 99212 ==

== ENCOUNTER 2021-07-19 13:47 | Outpatient (CLI) | payer MEDICARE, SELFPAY ==
--- NOTE | 2021-07-19 13:55 | CT_ITS ---
WS: [id number] CT ABDOMEN AND PELVIS NONCONTRAST HISTORY: GROSS HEMATURIA TECHNIQUE: Imaging performed through the abdomen and pelvis. Coronal and sagittal reformats are submi tted. All CT scans at [facility] use at least one of these dose optimization techniques: auto mated exposure control; mA and/or kV adjustment per patient size (includes targeted exams where dose is matched to clinical indication); or iterative reconstruction. DLP: 791.57 mGycm COMPARISON: 04/20/2021 Lower thorax: Benign granuloma RIGHT lung base. No effusion. Heart is enlarged. Liver: Normal size liver. No mass or bile duct dilatation. Gallbladder: Prior cholecystectomy. Pancreas: Poorly visualized pancreas on this unenhanced study. Spleen: Low-attenuation mass in the superior spleen measures 1.5 cm. Very nonspecific. 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 Adrenal glands: Poorly visualized. Right kidney: Poorly visualized RIGHT kidney. There is a nonobstructing calcification in the central renal pelvis. Cortical medullary differentiation is difficult. No obstruction is apparent. Proximal R IGHT ureter may be dilated. No obstructing lesion identified. Left kidney: Poorly visualized. Mild atrophy. No obstruction is evident. Aorta: Extensive calcification throughout the aorta and ectasia. There is mild diffuse anasarca. No ascites identified. No adenopathy is identified but lymphadenopath y would be difficult to exclude as there is very little fat the structures within the abdo men and pelvis. GI tract: Moderate diffuse fecal retention. No obstructive pattern identified. Abdominal wall: Negative. No hernia. Pelvis: There is increased density within the urinary bladder which may be calcification within the w all of the urinary bladder. No contrast was given for this examination. There are multiple calcificat ions in the pelvis probably from fibroid uterus. Osseous structures: Osteopenia. RIGHT scoliosis. CT/CT abdomen pelvis wo con [id number] IMPRESSION: 1. This examination is extremely limited for evaluation of abnormalities withi n the abdomen and pelvis. Very little fat present within the abdomen and pelvis . 2. Nonobstructing calcification RIGHT renal pelvis. 3. Proximal RIGHT ureter may be very slightly dilated but the cause is uncerta in. No ureteral calcifications are identified. 4. Numerous high density structures are within the urinary bladder which may b e calcifications as no contrast was given. This high density material was not p resent on 04/20/2021. Cannot determine etiology. 5. Fibroid uterus. 6. Constipation. 7. Prior cholecystectomy.
== END 2021-07-19 13:48 | disposition home or self-care (01) ==
PROVIDERS: PCP Family Medicine; Visit Provider Family Medicine
DX: R31.0 Gross hematuria (principal); Z90.49 Acquired absence of other specified parts of digestive tract; K59.00 Constipation, unspecified; D25.9 Leiomyoma of uterus, unspecified
CPT/HCPCS: 74176

== ENCOUNTER 2021-07-26 08:59 | Outpatient (CLI) | payer MEDICARE, SELFPAY ==
--- NOTE | 2021-07-26 | XR_ITS ---
WS: [id number] Exam: XR KUB [id number] Date/Time of Exam: 07/26/2021 9:05 AM Reason For Exam: RENAL STONE No bowel obstruction or free air. Large amount retained stool in the colon. 7 mm calcification superi mposes the right kidney and may represent a renal stone. Signs of prior cholecystectomy. Multiple non specific bilateral pelvic calcifications. No sign of organ enlargement. Degenerative change and scoli osis of the lumbar spine. XR/XR KUB [id number] IMPRESSION: 1. 7 mm calcification superimposing the right kidney and may represent a renal stone. 2. No acute abdominal process. Constipation. Multiple nonspecific pelvic calcif ications.
== END 2021-07-26 09:00 | disposition home or self-care (01) ==
LOC: RAD 09:02
PROVIDERS: PCP Family Medicine; Visit Provider Urology
DX: N20.0 Calculus of kidney (principal); N39.0 Urinary tract infection, site not specified
CPT/HCPCS: 74018; 81003

== ENCOUNTER 2021-08-03 13:13 | Outpatient (CLI) | payer MEDICARE, SELFPAY | END 2021-08-03 13:14 | disposition home or self-care (01) | LOC: WOUND 13:15 | PROVIDERS: PCP Family Medicine; Visit Provider Thoracic Surgery (Cardiothoracic Vascular Surgery) | DX: I96 Gangrene, not elsewhere classified (principal); S90.511A Abrasion, right ankle, initial encounter; X58.XXXA Exposure to other specified factors, initial encounter; L89.212 Pressure ulcer of right hip, stage 2; L89.152 Pressure ulcer of sacral region, stage 2 | CPT/HCPCS: 11042 ==

== ENCOUNTER 2021-08-08 15:50 | Outpatient (CLI) | payer MEDICARE, SELFPAY | END 2021-08-08 15:51 | disposition home or self-care (01) | LOC: LAB 15:53 | PROVIDERS: PCP Family Medicine; Visit Provider Thoracic Surgery (Cardiothoracic Vascular Surgery) | DX: L89.90 Pressure ulcer of unspecified site, unspecified stage (principal) | CPT/HCPCS: 87070; 87077; 87186 ==